=== PATIENT | female | born 1975 | race Caucasian/White ===

== ENCOUNTER 2018-02-18 16:49 | Inpatient (IN) ==
[2018-02-18] MEDS ORDERED: METOCLOPRAMIDE 10 MG/2 ML VIAL IV ONE ×2 (17:08→18:49)
--- NOTE | 2018-02-18 17:59 | XRay Report ---
CLINICAL INFORMATION: nausea and vomiting COMPARISON: None. FINDINGS: Stool gas pattern is normal. No free air, soft tissue mass or organomegaly. IUD overlies the true pelvis. There is moderate calcification in the abdominal aorta and iliac arteries IMPRESSION: No acute disease. Interpreted and Authenticated by: Zion Valles 02/18/18
[2018-02-18 18:20] LABS: Basophils # (Auto) 0.2 K/mcL (0.0-0.3); Basophils % (Auto) 1.4 % (0.0-2.0); Eosinophils # (Auto) 0 K/mcL (0.0-0.7); Eosinophils % (Auto) 0.1 % (0.0-7.0); Granulocytes % (Auto) 75.8 % (38.0-78.0); Lymphocytes % (Auto) 17.1 % (15.5-49.0); Mean Cell Volume 85.8 fL (80.0-100.0); Mean Corpuscular HGB Conc 31.4 g/dL (31.0-36.0); Mean Corpuscular Hemoglobin 26.9 pg (26.0-34.0); Monocytes # (Auto) 0.6 K/mcL (0.1-0.9); Monocytes % (Auto) 5.6 % (1.0-12.0); Platelet Count 253 K/mcL (140-440); RBC 4.72 M/mcL (4.00-5.20); Red Cell Distribution Width 17.8 % (11.5-14.5)
[2018-02-18 18:48] LABS: ALT/SGPT 12 U/l (0-40); Albumin 2.9 gm/dL (3.2-5.2); Albumin/Globulin Ratio 0.8 (1.0-2.3); Alkaline Phosphatase 234 U/L (39-117); Blood Urea Nitrogen 6 mg/dl (6-20); Lipase < 7 U/L (7-60)
--- NOTE | 2018-02-18 19:09 | Emergency Department Note ---
Nausea/Vomiting/Diarrhea HPI - General Chief complaint: Nausea/Vomiting/Diarrhea Stated complaint: n/v Time Seen by Provider: 02/18/18 17:00 Source: patient Mode of arrival: wheelchair Limitations: no limitations - History of Present Illness HPI Narrative: 42-year-old female dialysis patient brought over by Dr. Anton for nausea and vomiting in the dialysis unit. She received a dose of Zofran but this did not help much. Patient notes that she has had nausea vomiting for the last 4-5 days and is not able to keep much down. Decreased appetite she denies any fever but she is having some flulike symptoms with malaise and generally feeling bad. Denies any diarrhea. However because she has not eaten much her last bowel movement was about 4 days ago - Related Data Home Medications Medication Instructions Recorded Confirmed lancets MISCELLANE 04/23/16 09/07/17 cinacalcet 30 mg tablet 30 mg PO .QOD tab 07/09/17 12/24/17 aspirin 81 mg tablet,delayed 162 mg PO QDAY tab 09/07/17 12/24/17 release insulin glargine (U-100) 100 15 unit SUB-Q QHS ml 09/07/17 12/24/17 unit/mL (3 mL) subcutaneous pen Previous Rx's Medication Instructions Recorded insulin syringe-needle U-100 1 mL See Dose Instructions .ROUTE 05/28/16 31 gauge x 16" .MEDSUPPLY #100 each loperamide 2 mg capsule 2 mg PO QID PRN #30 cap 05/28/16 metoprolol tartrate 100 mg tablet 100 mg PO BID #60 tab 08/27/16 blood sugar diagnostic strips See Dose Instructions .ROUTE 12/11/16 .MEDSUPPLY #100 each Relion Pen [place] #1 ea 03/03/17 insulin aspart U-100 100 unit/mL 4 unit SUB-Q ONCE #10 ml 04/08/17 subcutaneous solution amlodipine 10 mg tablet 10 mg PO QDAY #30 tab 07/20/17 atorvastatin 40 mg tablet 40 mg PO QDAY #30 tab 07/20/17 sertraline 50 mg tablet 50 mg PO QDAY #30 tab 07/20/17 venlafaxine ER 225 mg 225 mg PO QDAY #90 tab 07/20/17 tablet,extended release 24 hr sevelamer carbonate 800 mg tablet 1,600 mg PO TID #180 tab 08/05/17 pen needle, diabetic 31 gauge x See Dose Instructions .ROUTE 09/07/17 1/" .MEDSUPPLY #30 each losartan 50 mg tablet 50 mg PO QDAY #30 tab 11/30/17 cetirizine 5 mg tablet 5 mg PO QDAY #30 tab 01/21/18 megestrol 400 mg/10 mL (10 mL) 200 mg PO BID #1000 ml 02/02/18 oral suspension potassium chloride ER 10 mEq 10 meq PO BID #60 cap 02/10/18 capsule,extended release Allergies Allergy/AdvReac Type Severity Reaction Status Date / Time No Known Drug Allergies Allergy Verified 09/07/17 08:44 Review of Systems All systems ED: reviewed and negative except as stated. Past Medical History - Past Medical History Attestation: Yes: The following information was validated with the patient. [facility] Narrative: Medical History (Last Updated 12/25/17 @ 13:48 by Monik Malhotra) Hypotension (Chronic) Metabolic bone disease (Chronic) Hyperlipidemia (Chronic) End stage renal disease on dialysis (Chronic) CAD (coronary artery disease) (Chronic) Bowel incontinence (Chronic) Anemia of chronic renal failure (Chronic) Adult health maintenance (Chronic) Amputee, above knee (Chronic) Kidney failure (Chronic ~2006) Hypertension, essential (Chronic ~1999) Congenital heart disease (Chronic) Heart problem (Chronic ~2002) DMII (diabetes mellitus, type 2) (Chronic ~2003) Depression (Chronic ~2005) Anxiety (Chronic ~2003) Past Surgical History (Last Updated 09/17/17 @ 07:35 by Manasa Katz) H/O colonoscopy (Chronic) History of surgery (Chronic 08/16/15) History of surgery (Chronic 09/03/15) History of surgery (Chronic 08/20/17) Hx of AKA (above knee amputation) (Chronic 09/07/15) Hx of coronary artery bypass graft (Chronic 08/20/17) Status post debridement (Chronic 09/16/17) Family History (Last Reviewed 09/07/17 @ 08:58 by Jerrica Joseph DO) Family/Other Cervical cancer Grandfather Prostate cancer Diabetes Hypertension, essential Grandmother Dementia Father Diabetes Hypertension, essential Heart attack Family/Other Diabetes Hypertension, essential Medical history: Reports: coronary artery disease, DM (Type II now on dialysis.) , hypertension, renal disease (End-stage, on dialysis.), other (Pulmonary embolism.). Denies: cancer, CVA, GERD, hyperlipidemia, myocardial infarction, TIA Psychiatric history: Reports: depression (Takes Effexor.). Denies: anxiety Surgical history ED: Reports: coronary bypass (CABG), other (AKA (right).) - Social History smoking status: Never smoker Alcohol use: Reports: None Drug use: Reports: none. Denies: marijuana Physical Exam No acute distress resting. Normocephalic atraumatic. Conjunctive are clear sclerae white and. Oropharynx dry buccal mucosa. Neck is supple without lymphadenopathy or thyromegaly. Heart is regular rate and rhythm no murmur appreciated. Lungs are clear to auscultation bilaterally without wheezes rales rhonchi or respiratory distress. Abdomen soft nontender nondistended except epigastrium is mildly tender. She does have a dialysis catheter in the upper right chest. Midline scar from previous CABG. Right below the knee amputation is noted. +2 radial pulse. Alert oriented able to answer questions appropriately. Reasonable historian Limitations: no limitations Course Vital Signs Temperature 97.1 F 02/18/18 16:49 Pulse Rate 103 H 02/18/18 16:49 Respiratory Rate 14 02/18/18 16:49 Blood Pressure 84/60 02/18/18 16:49 Pulse Oximetry (%) 100 02/18/18 16:49 Temperature 97.1 F 02/18/18 16:49 Pulse Rate 118 H 02/18/18 18:28 Respiratory Rate 18 02/18/18 18:28 Blood Pressure 103/68 02/18/18 18:28 Pulse Oximetry (%) 100 02/18/18 18:28 Nausea/Vomiting/Diarrhea - Lab Data Lab results reviewed: Yes I reviewed the patient's lab results. Result diagrams: 02/18/18 17:57 02/18/18 17:57 Lab Results 02/18/18 02/18/18 Range/Units 17:57 17:57 WBC 11.4 H (4.5-11.0) K/mcL RBC 4.72 (4.00-5.20) M/mcL Hgb 12.7 (12.0-15.0) g/dL Hct 40.5 (36.0-48.0) % MCV 85.8 (80.0-100.0) fL MCH 26.9 (26.0-34.0) pg MCHC 31.4 (31.0-36.0) g/dL RDW 17.8 H (11.5-14.5) % Plt Count 253 (140-440) K/mcL MPV 10.6 H (7.4-10.4) fL Gran % 75.8 (38.0-78.0) % Lymph % (Auto) 17.1 (15.5-49.0) % [place] % (Auto) 5.6 (1.0-12.0) % Eos % (Auto) 0.1 (0.0-7.0) % Baso % (Auto) 1.4 (0.0-2.0) % Gran # 8.7 H (1.8-8.0) K/mcL Lymph # (Auto) 2.0 (1.5-4.8) K/mcL [place] # (Auto) 0.6 (0.1-0.9) K/mcL Eos # (Auto) 0 (0.0-0.7) K/mcL Baso # (Auto) 0.2 (0.0-0.3) K/mcL Sodium 132 L (133-145) mmol/L Potassium 4.3 (3.3-5.1) mmol/L Chloride 89 L (96-108) mmol/L Carbon Dioxide 22 (22-30) mmol/L Anion Gap 21.0 H (8-16) BUN 6 (6-20) mg/dl Creatinine 1.1 (0.6-1.1) mg/dl GFR Calculation 62 Glucose 129 H (70-105) mg/dL Calcium 8.4 L (8.6-10.4) mg/dl Total Bilirubin 0.5 (0.0-1.0) mg/dL AST 35 (0-37) U/l ALT 12 (0-40) U/l Alkaline Phosphatase 234 H (39-117) U/L Total Protein 6.7 (5.9-8.4) gm/dL Albumin 2.9 L (3.2-5.2) gm/dL Globulin 3.8 H (2.2-3.7) gm/dL Albumin/Globulin Ratio 0.8 L (1.0-2.3) Lipase < 7 L (7-60) U/L - Radiology Data Radiology results reviewed: Yes I reviewed the patient's radiology results. X-ray 2 views abdomen considered normal by radiology Disposition Pt seen by PROOF OPERATOR/PA only: No Clinical Impression: End stage renal disease on dialysis Intractable nausea and vomiting Qualifiers: Vomiting type: unspecified Qualified Code(s): R11.2 - Nausea with vomiting, unspecified Summary: Differential diagnosis includes gastritis versus gastroparesis versus pancreatic insufficiency. She is given 2 doses of Reglan in addition to the Zofran previously given in dialysis without significant relief of her nausea. Gastroparesis is a possibility especially given her history of diabetes. Lipase is undetectable when it should be expected elevated after 4 days of nausea and vomiting-pancreatic insufficiency remains a possibility. I did not give her IV fluid because she just came from dialysis and she does not make urine anymore; she was allowed to oral trial of fluids I discussed the case with Dr. Dias, hospitalist. He agreed to accept patient for further evaluation and care here in the hospital Disposition: Xfer As Inpt ([facility]) Condition: Fair Referrals: Jerrica Joseph DO [Primary Care Provider] - Deann Anton MD [Physician] -
[2018-02-18] MEDS ORDERED: 0.9 % SODIUM CHLORIDE 250 ML IV ONE (20:32)
--- NOTE | 2018-02-18 20:46 | Internal Med History&Physical ---
Medical - H&P: HPI Patient information: Note initiated : 02/18/18 at 8:38 pm Service Date, if different from initiated Date: [] Patient: Louisa Cohn a 42 y/o F admitted on for n/v, constipation. Chief Complaint: [] History of present illness: Ms. Cohn is a 42 year old F with multiple medical issues, type II diabetic for last 20 years, right BKA, end-stage renal disease on hemodialysis, recent cardiac bypass surgery, pulmonary embolism in August 2017. Presently on Coumadin. Presents to the emergency room from her dialysis unit. The patient notes she has not been feeling well for the last 6 weeks, the patient has had decreased appetite and has not been eating very well since then. She is also had some nausea and vomiting. Over the last 3 weeks she has noticed that her stool color has changed and it is more darker than before. She has not had much bowel movement for the last 1 week as she has not eaten much. For the last week and a half she has been having intractable nausea and vomiting, she has not been able to eat much at all. She notes that the vomit happens with or without any association with meals, but if she eats something she will definitely threw up. It is biliary in nature, denies any blood in there. She has had intermittent projectile vomiting. The patient denies any abdominal pain, admits to having flulike symptoms just cold all the time. She denies any other acute symptoms. She denies any headache, changes in vision, she has intermittent difficulty in swallowing, she denies any cough shortness of breath or active chest pain. She denies any abdominal pain just some discomfort, denies any bowel bladder complaints, she has had diarrhea in the past, she was being followed by GI and was supposed to have a colonoscopy done. She notes that she never had a colonoscopy done because of her cardiac issue. Today on dialysis at the end of the dialysis. She has had multiple episodes of vomiting which did not respond to Zofran, she is also had significant weight loss over the last 6 weeks and therefore was sent to the emergency room for further evaluation. In the emergency room the patient received 2 doses of IV Reglan with some response. Given her weight loss acuity of symptom the patient is being admitted to the hospital for further evaluation. In the emergency room patient has been afebrile temperature 97.1, heart rate 94 , she is also had few runs of tachycardia. Blood pressure stable 107/68 respirations 18 saturations are 99% on room air. Chest x-ray done is negative for acute infiltrates to my interpretation. Abdominal x-ray is reported as negative. EKG shows sinus tachycardia ST-T wave changes inversions in anterior and lateral leads. Patient had lateral lead changes in the previous EKG anteriorly changes in V2 and V3 are new. Patient is asymptomatic has had cardiac bypass surgery. The patient's labs show mild leukocytosis at 11.4, hemoglobin 12.7, platelets 253. Sodium 132 potassium 4.3 bicarbonate 22. Creatinine 1.1 glucose 129. Alkaline phosphatase 234 and lipase is less than 7. INR is 1.8. All systems: reviewed and no additional remarkable complaints except as stated ( As per HPI rest negative) Medical - H&P: H Medical history: Medical History (Last Updated 12/25/17 @ 13:48 by Monik Malhotra) Hypotension (Chronic) Metabolic bone disease (Chronic) Hyperlipidemia (Chronic) End stage renal disease on dialysis (Chronic) CAD (coronary artery disease) (Chronic) Bowel incontinence (Chronic) Anemia of chronic renal failure (Chronic) Adult health maintenance (Chronic) Amputee, above knee (Chronic) Kidney failure (Chronic ~2006) Hypertension, essential (Chronic ~1999) Congenital heart disease (Chronic) Heart problem (Chronic ~2002) DMII (diabetes mellitus, type 2) (Chronic ~2003) Depression (Chronic ~2005) Anxiety (Chronic ~2003) Surgical history: Past Surgical History (Last Updated 09/17/17 @ 07:35 by Manasa Katz) H/O colonoscopy (Chronic) History of surgery (Chronic 08/16/15) History of surgery (Chronic 09/03/15) History of surgery (Chronic 08/20/17) Hx of AKA (above knee amputation) (Chronic 09/07/15) Hx of coronary artery bypass graft (Chronic 08/20/17) Status post debridement (Chronic 09/16/17) Pertinent family history: Family History (Last Reviewed 09/07/17 @ 08:58 by Jerrica Joseph DO) Family/Other Cervical cancer Grandfather Prostate cancer Diabetes Hypertension, essential Grandmother Dementia Father Diabetes Hypertension, essential Heart attack Family/Other Diabetes Hypertension, essential Medical - H&P: Meds Home Medications Medication Instructions Recorded Confirmed Type lancets MISCELLANE 04/23/16 09/07/17 History insulin syringe-needle U-100 1 mL See Dose Instructions .ROUTE 05/28/16 Rx 31 gauge x 09/30" .MEDSUPPLY #100 each loperamide 2 mg capsule 2 mg PO QID PRN #30 cap 05/28/16 02/18/18 Rx metoprolol tartrate 100 mg tablet 100 mg PO BID #60 tab 08/27/16 02/18/18 Rx blood sugar diagnostic strips See Dose Instructions .ROUTE 12/11/16 09/07/17 Rx .MEDSUPPLY #100 each Relion Pen [place] #1 ea 03/03/17 09/07/17 Rx insulin aspart U-100 100 unit/mL 4 unit SUB-Q ONCE #10 ml 04/08/17 02/18/18 Rx subcutaneous solution cinacalcet 30 mg tablet 30 mg PO .QOD tab 07/09/17 02/18/18 History amlodipine 10 mg tablet 10 mg PO QDAY #30 tab 07/20/17 02/18/18 Rx atorvastatin 40 mg tablet 40 mg PO QDAY #30 tab 07/20/17 02/18/18 Rx sertraline 50 mg tablet 50 mg PO QDAY #30 tab 07/20/17 02/18/18 Rx venlafaxine ER 225 mg 225 mg PO QDAY #90 tab 07/20/17 02/18/18 Rx tablet,extended release 24 hr sevelamer carbonate 800 mg tablet 1,600 mg PO TID #180 tab 08/05/17 02/18/18 Rx insulin glargine (U-100) 100 15 unit SUB-Q QHS ml 09/07/17 02/18/18 History unit/mL (3 mL) subcutaneous pen pen needle, diabetic 31 gauge x See Dose Instructions .ROUTE 09/07/17 09/07/17 Rx 1/4" .MEDSUPPLY #30 each losartan 50 mg tablet 50 mg PO QDAY #30 tab 11/30/17 02/18/18 Rx cetirizine 5 mg tablet 5 mg PO QDAY #30 tab 01/21/18 02/18/18 Rx megestrol 400 mg/10 mL (10 mL) 200 mg PO BID #1000 ml 02/02/18 02/18/18 Rx oral suspension potassium chloride ER 10 mEq 10 meq PO BID #60 cap 02/10/18 Rx capsule,extended release Allergies Allergy/AdvReac Type Severity Reaction Status Date / Time No Known Drug Allergies Allergy Verified 09/07/17 08:44 Medical - H&P: Exam - Constitutional Vitals: Temp Pulse Resp BP Pulse Ox 97.1 F 110 H 18 111/85 100 02/18/18 16:49 02/18/18 20:08 02/18/18 20:08 02/18/18 20:08 02/18/18 20:08 Exam: GENERAL: The patient is a well-developed, well-nourished in no apparent distress. Is alert and oriented x3. VITAL SIGNS: Reviewed and as noted elsewhere. HEENT: Head is normocephalic and atraumatic. Extraocular muscles are intact. Pupils are equal, round, and reactive to light. Nares appeared normal. Mouth appears any without lesions. Mucous membranes are dry. NECK: Normal to inspection, Supple, No lymphadenopathy or thyromegaly. LUNGS: Air entry equal on both sides, no wheezing, crackles or rhonchi noted. No accessory muscles of respiration HEART: tachycardic rate and rhythm normal, S1 and S2 heard, no Gallop, S3 or Rub Noted,systolic murmur mitral region.. ABDOMEN: Soft, nontender, and nondistended, large pannus. Positive bowel sounds. No hepatosplenomegaly was noted. EXTREMITIES: No cyanosis, clubbing, rash, lesions or edema. Rt bka NEUROLOGIC: Cranial nerves II through XII are grossly intact. Motor and Sensory System Grossly Intact PSYCHIATRIC: Normal affect, Normal Mood. Appropriate Behavior. SKIN: No ulceration or wounds noted, No jaundice, No rash noted. Medical - H&P: Reslt - Labs CBC & Chem 7: 02/18/18 17:57 02/18/18 17:57 Labs: Short CBC 02/18/18 Range/Units 17:57 WBC 11.4 H (4.5-11.0) K/mcL Hgb 12.7 (12.0-15.0) g/dL Hct 40.5 (36.0-48.0) % Plt Count 253 (140-440) K/mcL BMP 02/18/18 17:57 Sodium 132 L Potassium 4.3 Chloride 89 L Carbon Dioxide 22 BUN 6 Creatinine 1.1 Glucose 129 H Calcium 8.4 L Liver Function 02/18/18 Range/Units 17:57 Total Bilirubin 0.5 (0.0-1.0) mg/dL AST 35 (0-37) U/l ALT 12 (0-40) U/l Alkaline Phosphatase 234 H (39-117) U/L Albumin 2.9 L (3.2-5.2) gm/dL Medical - H&P: A/P - Narrative A/P Narrative: A/P Nausea/ vomiting Dehydration Weight loss Diabetes Mellitus Hypertension Hyperlipidemia Coronary Artery Disease s/p CABG Pulmonary Embolus, within last 6 months END stage renal disease on dialysis Chronic Diarrhea Depression Plan Intermittent tachycardia, noted, sinus tachycardia, IV fluids for now, IV reglan, zofran, phenergan for symptomatic managmeent Plan for CT abdomen and pelvis and possible EGD in AM, its possible that the patient has developed gastroparesis, but will complete workup, Nephrology to consult for dialysis Resume statin, beta blockers, hold arb/ amlodipine for now. ssi insulin for glucose control tachycardia likely from dehydration, autonomic dysregulation possible check troponin, trend value, first value could be elevated (on HD) DVT enoxaprin, coumadin Full code renal, carb consistent diet. Social History - Social History marital status: - Tobacco smoking status: Never smoker - Alcohol alcohol intake frequency: does not drink - Substance use substance use type: does not use
[2018-02-18] MEDS ORDERED: IOPAMIDOL 100 ML BOTTLE IV ONE (20:50)
[2018-02-18] MEDS ORDERED: NALOXONE HCL 0.4 MG/ML VIAL IV PRN (21:02)
[2018-02-18] MEDS ORDERED: HYDROmorphone 2 MG/ML VIAL IV PRN (21:02)
[2018-02-18] MEDS ORDERED: PROMETHAZINE 25 MG/ML VIAL IV PRN (21:02)
[2018-02-18] MEDS ORDERED: LACTATED RINGERS 1,000 ML IV SCH (21:02)
[2018-02-18] MEDS ORDERED: DEXTROSE 50% 50 ML VIAL IV PRN (21:02)
[2018-02-18] MEDS ORDERED: ONDANSETRON 4 MG/2 ML VIAL IV PRN (21:02)
[2018-02-18] MEDS ORDERED: ALBUTEROL SULFATE 2.5 MG/3 ML NEBULIZER NEB PRN (21:02)
[2018-02-18] MEDS ORDERED: ACETAMINOPHEN 325 MG TABLET PO PRN (21:02)
[2018-02-18] MEDS ORDERED: oxyCODONE HCL 5 MG TABLET PO PRN (21:02)
[2018-02-18] MEDS ORDERED: DEXTROSE 31 GM ORAL.SUSP PO PRN (21:02)
[2018-02-18] MEDS ORDERED: ENOXAPARIN 40 MG/0.4 ML SYRINGE SQ ONE (21:02)
[2018-02-18] MEDS: METOPROLOL TARTRATE 50 MG TABLET PO SCH (22:03)
[2018-02-18] MEDS: ATORVASTATIN 20 MG TABLET PO SCH (22:03)
[2018-02-18] MEDS: INSULIN LISPRO 1 UNIT/0.01 ML UNIT SQ SCH (22:07)
[2018-02-18] MEDS: 0.9 % SODIUM CHLORIDE 10 ML SYRINGE IV SCH (22:07)
--- NOTE | 2018-02-19 04:57 | XRay Report ---
CLINICAL INFORMATION: nausea/vomiting COMPARISON: 12/25/2017 FINDINGS: Right IJ double-lumen catheter tip overlies the right atrium near the tricuspid valve plane - no change. Sternotomy changes noted. Mediastinum and pulmonary vessels are unremarkable. The lungs are clear. No effusions. IMPRESSION: No acute disease. No change from 12/25/2017 Interpreted and Authenticated by: Zion Valles 02/19/18
[2018-02-19] MEDS: 0.9 % SODIUM CHLORIDE 10 ML SYRINGE IV SCH ×3 (06:31→20:30)
[2018-02-19 07:04] LABS: Basophils # (Auto) 0.1 K/mcL (0.0-0.3); Eosinophils # (Auto) 0 K/mcL (0.0-0.7); Eosinophils % (Auto) 0.4 % (0.0-7.0); Granulocytes % (Auto) 50.9 % (38.0-78.0); Lymphocytes # (Auto) 2.8 K/mcL (1.5-4.8); Lymphocytes % (Auto) 38.1 % (15.5-49.0); Mean Cell Volume 85.8 fL (80.0-100.0); Mean Corpuscular HGB Conc 31.5 g/dL (31.0-36.0); Mean Corpuscular Hemoglobin 27.1 pg (26.0-34.0); Monocytes # (Auto) 0.7 K/mcL (0.1-0.9); Monocytes % (Auto) 9.6 % (1.0-12.0); Platelet Count 206 K/mcL (140-440); RBC 4.02 M/mcL (4.00-5.20); Red Cell Distribution Width 17.3 % (11.5-14.5)
[2018-02-19 07:49] LABS: ALT/SGPT 8 U/l (0-40); Albumin 2.5 gm/dL (3.2-5.2); Albumin/Globulin Ratio 0.8 (1.0-2.3); Alkaline Phosphatase 187 U/L (39-117); Bilirubin,Direct < 0.2 mg/dL (0.0-0.3); Blood Urea Nitrogen 10 mg/dl (6-20); Gamma Glutamyl Transpeptidase 39 U/L (5-36); Uric Acid 1.5 mg/dL (2.5-8.0)
[2018-02-19] MEDS ORDERED: DEXTROSE 50% 50 ML VIAL IV ONE (07:50)
[2018-02-19] MEDS: INSULIN LISPRO 1 UNIT/0.01 ML UNIT SQ SCH ×4 (07:59→20:00)
[2018-02-19] MEDS: METOCLOPRAMIDE 10 MG/2 ML VIAL IV SCH ×4 (08:02→20:29)
[2018-02-19] MEDS: METOPROLOL TARTRATE 50 MG TABLET PO SCH ×2 (09:49→20:02)
[2018-02-19] MEDS: SERTRALINE 50 MG TABLET PO SCH (09:50)
[2018-02-19] MEDS: VENLAFAXINE 75 MG CAP.XL.24H PO SCH (09:50)
[2018-02-19] MEDS: SEVELAMER 800 MG TABLET PO SCH ×3 (09:54→18:48)
[2018-02-19] MEDS: PANTOPRAZOLE 40 MG VIAL IV SCH ×2 (11:04→18:49)
[2018-02-19] MEDS ORDERED: WARFARIN 2.5 MG TABLET PO ONE (14:00)
--- NOTE | 2018-02-19 15:06 | Nephrology Consult Note ---
History of Present Illness - Reason for Consult Patient information: Note initiated : 02/19/18 at 2:58 pm Service Date, if different from initiated Date: [] Patient: Louisa Cohn a 42 y/o F admitted on 02/18/18 for N/V, Constipation. Chief Complaint: [] Consult date: 02/19/18 end stage renal disease Requesting physician: Dayna Dias - Chief Complaint nausea, vomiting - History of Present Illness Patient is a 42 y/o pleasant white female with ESRD from diabetic kidney disease who is admitted for management of refractory nausea, vomiting Patient is noted to have progressive weight loss with poor appetite, very poor po intake and recurrent nausea, vomiting and diarrhea she was treated with PPI, megace (appetite stimulant) and zofran but this did not improve her symptoms given worsening of her symptoms she was recommended hospitalisation for GI work up she denies SOB, CP no edema does feel very weak, bedbound, unable to do much PT Review of Systems All systems PM: reviewed and no additional remarkable complaints except as stated (as in HPI) Past History Past medical history: ESRD from diabetic kidney disease DM type 2 with multiple complications HTN PE CAD, severe s/p CABG dyslipidemia renal artery stenosis s/p stenting depression PVD, s/p BKA obesity Past surgical history: as above s/p TCC Past family history: not pertinent Past social history: lives with her in [place] no addictions Medications and Allergies Home Medications Medication Instructions Recorded Confirmed Type loperamide 2 mg capsule 2 mg PO QID PRN #30 cap 05/28/16 02/18/18 Rx metoprolol tartrate 100 mg tablet 100 mg PO BID #60 tab 08/27/16 02/18/18 Rx insulin aspart U-100 100 unit/mL 4 unit SUB-Q ONCE #10 ml 04/08/17 02/18/18 Rx subcutaneous solution cinacalcet 30 mg tablet 30 mg PO HS tab 07/09/17 02/18/18 History amlodipine 10 mg tablet 10 mg PO QDAY #30 tab 07/20/17 02/18/18 Rx atorvastatin 40 mg tablet 40 mg PO QDAY #30 tab 07/20/17 02/18/18 Rx sertraline 50 mg tablet 50 mg PO QDAY #30 tab 07/20/17 02/18/18 Rx venlafaxine ER 225 mg 225 mg PO QDAY #90 tab 07/20/17 02/18/18 Rx tablet,extended release 24 hr sevelamer carbonate 800 mg tablet 1,600 mg PO TID #180 tab 08/05/17 02/18/18 Rx insulin glargine (U-100) 100 20 unit SUB-Q QHS ml 09/07/17 02/18/18 History unit/mL (3 mL) subcutaneous pen pen needle, diabetic 31 gauge x See Dose Instructions .ROUTE 09/07/17 09/07/17 Rx 05/21" .MEDSUPPLY #30 each losartan 50 mg tablet 50 mg PO QDAY #30 tab 11/30/17 02/18/18 Rx cetirizine 5 mg tablet 5 mg PO QDAY #30 tab 01/21/18 02/18/18 Rx megestrol 400 mg/10 mL (10 mL) 200 mg PO BID #1000 ml 02/02/18 02/18/18 Rx oral suspension potassium chloride ER 10 mEq 10 meq PO BID #60 cap 02/10/18 02/18/18 Rx capsule,extended release Blood-Glucose Meter [Blood Glucose 1 strip 5XD 02/18/18 02/18/18 History Monitoring] Allergies Allergy/AdvReac Type Severity Reaction Status Date / Time No Known Drug Allergies Allergy Verified 09/07/17 08:44 Exam - Vital Signs Vital signs: Temp Pulse Resp BP Pulse Ox 96.8 F L 71 14 106/72 91 02/19/18 06:43 02/19/18 08:00 02/19/18 06:43 02/19/18 06:43 02/19/18 06:43 - General Appearance General appearance: appears started age, frail EENT: mucous membranes moist Neck: no JVD Respiratory: clear Cardiology: no rub, no edema, regular rate, regular rhythm Gastrointestinal: no tenderness, no guarding Integumentary: warm and dry Neurologic: alert and oriented x3 Musculoskeletal: no erythema, no cyanosis Psychiatric: mood/affect appropriate Results - Lab Results 02/19/18 04:05 02/19/18 04:05 Most recent lab results Calcium 8.9 mg/dl (8.6-10.4) 02/19/18 04:05 Phosphorus 1.9 mg/dL (2.7-4.5) L 02/19/18 04:05 Magnesium 1.7 mg/dL (1.6-2.5) 02/19/18 04:05 Assessment and Plan (1) Intractable nausea and vomiting patient with poor appetite, intractable nausea, vomiting for the last few days and also intermittent diarrhea tried multiple meds putpt, on IDPN as well she is hospitalised at present for evaluation and management and will CT abdomen and GI eval, appreciate hospitalist help with this ESRD on HD: will do 2.5hr dialysis session today after CT scan to dialyse off the contrast as she has some residual renal function HD tomorrow with IDPN as she dialyses TTS We will need to renew home PT/OT,s he is refusing rehab placement Status: Acute Qualifiers: Vomiting type: unspecified Qualified Code(s): R11.2 - Nausea with vomiting , unspecified (2) End stage renal disease on dialysis Status: Chronic
--- NOTE | 2018-02-19 17:01 | General Surgery Consult Note ---
History of Present Illness Patient information: Note initiated : 02/19/18 at 4:57 pm Service Date, if different from initiated Date: [] Patient: Louisa Cohn 42 y/o F admitted on 02/18/18 for N/V, Constipation. Chief Complaint: [] Reason for consult: other (recurrent nausea and vomiting) History of present illness: 42-year-old female is admitted for evaluation of intractable nausea and vomiting. The patient has multiple medical problems including severe uncontrolled diabetes mellitus, end-stage renal disease on hemodialysis, coronary artery disease, status post four-vessel bypass, severe peripheral vascular disease. She gives a history of 10-12 days of recurrent nausea and vomiting that has gotten much worse over the past 6 days. Her vomiting is associated with all meals and is mostly bilious. She still has her gallbladder , but denies right-sided abdominal pain or any other type of abdominal pain. She denies bloating. She has had chronic diarrhea for over 10 years. She has history of greater than 50 pound weight loss over the past year. She states that whenever she eats. She has prompt emesis of the undigested food. Review of Systems - Constitutional fatigue, headache(s), lethargy, malaise, weakness, weight loss - EENT Nose, mouth and throat: dizziness, headache(s), no abnormal hearing - Cardiovascular no chest pain at rest, no diaphoresis, no palpatations, no syncope - Respiratory no cough, no dyspnea on exertion, no wheezing, no chest congestion - Gastrointestinal abdominal pain, diarrhea, early satiety, nausea, vomiting, no bloating - Integumentary no changing lesions, no non-healing lesions - Neurological no abnormal speech, no confusion, no dizziness, no numbness, no paresthesias, no syncope, no vertigo - Psychiatric anxiety, depression, hopelessness - Hematologic/Lymphatic no easy bleeding, no easy bruising, no lymphadenopathy - Allergic/Immunologic no tongue swelling, no throat swelling, no uticaria, no wheezing, no lip swelling Past History Past medical history: Coronary artery disease, status post four-vessel coronary artery bypass graft. Peripheral vascular disease status post angioplasty 3, left lower extremity, status post right [id number] amputation. Uncontrolled diabetes. Hypertension. End-stage renal disease on hemodialysis Past surgical history: Coronary artery bypass graft 4 Angioplasty 3, left lower extremity. Right [id number] amputation Past family history: Cervical cancer. Prostate cancer. Diabetes mellitus Hypertension Dementia. Hypertension. Coronary artery disease Past social history: Never smoker. Denies alcohol use. Denies drug use Medications and Allergies Home Medications Medication Instructions Recorded Confirmed Type loperamide 2 mg capsule 2 mg PO QID PRN #30 cap 05/28/16 02/18/18 Rx metoprolol tartrate 100 mg tablet 100 mg PO BID #60 tab 08/27/16 02/18/18 Rx insulin aspart U-100 100 unit/mL 4 unit SUB-Q ONCE #10 ml 04/08/17 02/18/18 Rx subcutaneous solution cinacalcet 30 mg tablet 30 mg PO HS tab 07/09/17 02/18/18 History amlodipine 10 mg tablet 10 mg PO QDAY #30 tab 07/20/17 02/18/18 Rx atorvastatin 40 mg tablet 40 mg PO QDAY #30 tab 07/20/17 02/18/18 Rx sertraline 50 mg tablet 50 mg PO QDAY #30 tab 07/20/17 02/18/18 Rx venlafaxine ER 225 mg 225 mg PO QDAY #90 tab 07/20/17 02/18/18 Rx tablet,extended release 24 hr sevelamer carbonate 800 mg tablet 1,600 mg PO TID #180 tab 08/05/17 02/18/18 Rx insulin glargine (U-100) 100 20 unit SUB-Q QHS ml 09/07/17 02/18/18 History unit/mL (3 mL) subcutaneous pen pen needle, diabetic 31 gauge x See Dose Instructions .ROUTE 09/07/17 09/07/17 Rx 1/4" .MEDSUPPLY #30 each losartan 50 mg tablet 50 mg PO QDAY #30 tab 11/30/17 02/18/18 Rx cetirizine 5 mg tablet 5 mg PO QDAY #30 tab 01/21/18 02/18/18 Rx megestrol 400 mg/10 mL (10 mL) 200 mg PO BID #1000 ml 02/02/18 02/18/18 Rx oral suspension potassium chloride ER 10 mEq 10 meq PO BID #60 cap 02/10/18 02/18/18 Rx capsule,extended release Blood-Glucose Meter [Blood Glucose 1 strip 5XD 02/18/18 02/18/18 History Monitoring] Allergies Allergy/AdvReac Type Severity Reaction Status Date / Time No Known Drug Allergies Allergy Verified 09/07/17 08:44 Exam Temp Pulse Resp BP Pulse Ox 97.5 F 65 16 110/81 92 02/19/18 15:38 02/19/18 15:38 02/19/18 15:38 02/19/18 15:38 02/19/18 15:38 - General physical appearance well developed, well nourished, no distress, chronically ill - Eyes PERRL, normal ocular movement - ENT normal pinna, normal nares, normal mucosa, no hearing loss, no congestion - Head Head exam IM: Present: atraumatic, normal inspection, normocephalic - Neck no masses, no bruits, trachea midline, no lymphadectomy, no venous distension - Cardiovascular Cardiovascular exam IM: Present: normal rate and rhythm, RRR, +S1, +S2. Absent : irregular rhythm, JVD, tachycardia - Respiratory normal expansion, normal respiratory effort, clear to auscultation - Abdomen Abdomen: Present: soft, non tender, bowel sounds. Absent: tender Hernia: Present: none - Genitourinary Present: normal external genitalia - Integumentary Present: no rash, no growths, no abnormal pigmentation - Neurologic Present: normal coordination, normal sensation - Musculoskeletal Present: normal gait, normal posture, other (status post right [id number] amputation with well healed stump) - Psychiatric Present: oriented to time, oriented to person, oriented to place, speech is normal, memory intact Results - Labs 02/19/18 04:05 02/19/18 04:05 Abnormal lab results 02/18/18 02/18/18 02/18/18 Range/Units 17:15 17:15 17:57 WBC 11.4 H (4.5-11.0) K/mcL Hgb (12.0-15.0) g/dL Hct (36.0-48.0) % RDW 17.8 H (11.5-14.5) % MPV 10.6 H (7.4-10.4) fL Gran # 8.7 H (1.8-8.0) K/mcL PT 21.1 H (11.9-14.5) sec INR 1.8 H (0.9-1.1) Sodium (133-145) mmol/L Chloride (96-108) mmol/L Carbon Dioxide (22-30) mmol/L Anion Gap (8-16) Creatinine (0.6-1.1) mg/dl Glucose (70-105) mg/dL Uric Acid (2.5-8.0) mg/dL Calcium (8.6-10.4) mg/dl Phosphorus (2.7-4.5) mg/dL GGT (5-36) U/L Alkaline Phosphatase (39-117) U/L Troponin T 0.06 H* (0-0.03) ng/ml Total Protein (5.9-8.4) gm/dL Albumin (3.2-5.2) gm/dL Globulin (2.2-3.7) gm/dL Albumin/Globulin Ratio (1.0-2.3) Lipase (7-60) U/L 02/18/18 02/19/18 02/19/18 Range/Units 17:57 04:05 04:05 WBC (4.5-11.0) K/mcL Hgb 10.9 L (12.0-15.0) g/dL Hct 34.5 L (36.0-48.0) % RDW 17.3 H (11.5-14.5) % MPV 11.5 H (7.4-10.4) fL Gran # (1.8-8.0) K/mcL PT 22.6 H (11.9-14.5) sec INR 2.0 H (0.9-1.1) Sodium 132 L (133-145) mmol/L Chloride 89 L (96-108) mmol/L Carbon Dioxide (22-30) mmol/L Anion Gap 21.0 H (8-16) Creatinine (0.6-1.1) mg/dl Glucose 129 H (70-105) mg/dL Uric Acid (2.5-8.0) mg/dL Calcium 8.4 L (8.6-10.4) mg/dl Phosphorus (2.7-4.5) mg/dL GGT (5-36) U/L Alkaline Phosphatase 234 H (39-117) U/L Troponin T (0-0.03) ng/ml Total Protein (5.9-8.4) gm/dL Albumin 2.9 L (3.2-5.2) gm/dL Globulin 3.8 H (2.2-3.7) gm/dL Albumin/Globulin Ratio 0.8 L (1.0-2.3) Lipase < 7 L (7-60) U/L 02/19/18 02/19/18 Range/Units 04:05 04:05 WBC (4.5-11.0) K/mcL Hgb (12.0-15.0) g/dL Hct (36.0-48.0) % RDW (11.5-14.5) % MPV (7.4-10.4) fL Gran # (1.8-8.0) K/mcL PT (11.9-14.5) sec INR (0.9-1.1) Sodium (133-145) mmol/L Chloride 94 L (96-108) mmol/L Carbon Dioxide 21 L (22-30) mmol/L Anion Gap 20.0 H (8-16) Creatinine 1.6 H (0.6-1.1) mg/dl Glucose (70-105) mg/dL Uric Acid 1.5 L (2.5-8.0) mg/dL Calcium (8.6-10.4) mg/dl Phosphorus 1.9 L (2.7-4.5) mg/dL GGT 39 H (5-36) U/L Alkaline Phosphatase 187 H (39-117) U/L Troponin T 0.07 H* (0-0.03) ng/ml Total Protein 5.6 L (5.9-8.4) gm/dL Albumin 2.5 L (3.2-5.2) gm/dL Globulin (2.2-3.7) gm/dL Albumin/Globulin Ratio 0.8 L (1.0-2.3) Lipase (7-60) U/L Diabetes panel 02/18/18 02/19/18 Range/Units 17:57 04:05 Sodium 132 L 135 (133-145) mmol/L Potassium 4.3 4.0 (3.3-5.1) mmol/L Chloride 89 L 94 L (96-108) mmol/L Carbon Dioxide 22 21 L (22-30) mmol/L BUN 6 10 (6-20) mg/dl Creatinine 1.1 1.6 H (0.6-1.1) mg/dl Glucose 129 H 75 (70-105) mg/dL Calcium 8.4 L 8.9 (8.6-10.4) mg/dl AST 35 21 (0-37) U/l ALT 12 8 (0-40) U/l Alkaline Phosphatase 234 H 187 H (39-117) U/L Total Protein 6.7 5.6 L (5.9-8.4) gm/dL Albumin 2.9 L 2.5 L (3.2-5.2) gm/dL Triglycerides 108 (<150) mg/dl Thyroid panel 02/18/18 Range/Units 17:57 TSH 1.29 (0.27-5.01) uIU/ml Calcium panel 02/18/18 02/19/18 Range/Units 17:57 04:05 Calcium 8.4 L 8.9 (8.6-10.4) mg/dl Phosphorus 1.9 L (2.7-4.5) mg/dL Albumin 2.9 L 2.5 L (3.2-5.2) gm/dL Pituitary panel 02/18/18 02/18/18 02/19/18 Range/Units 17:57 17:57 04:05 Sodium 132 L 135 (133-145) mmol/L Potassium 4.3 4.0 (3.3-5.1) mmol/L Chloride 89 L 94 L (96-108) mmol/L Carbon Dioxide 22 21 L (22-30) mmol/L BUN 6 10 (6-20) mg/dl Creatinine 1.1 1.6 H (0.6-1.1) mg/dl Glucose 129 H 75 (70-105) mg/dL Calcium 8.4 L 8.9 (8.6-10.4) mg/dl TSH 1.29 (0.27-5.01) uIU/ml Adrenal panel 02/18/18 02/19/18 Range/Units 17:57 04:05 Sodium 132 L 135 (133-145) mmol/L Potassium 4.3 4.0 (3.3-5.1) mmol/L Chloride 89 L 94 L (96-108) mmol/L Carbon Dioxide 22 21 L (22-30) mmol/L BUN 6 10 (6-20) mg/dl Creatinine 1.1 1.6 H (0.6-1.1) mg/dl Glucose 129 H 75 (70-105) mg/dL Calcium 8.4 L 8.9 (8.6-10.4) mg/dl Total Bilirubin 0.5 0.4 (0.0-1.0) mg/dL AST 35 21 (0-37) U/l ALT 12 8 (0-40) U/l Alkaline Phosphatase 234 H 187 H (39-117) U/L Total Protein 6.7 5.6 L (5.9-8.4) gm/dL Albumin 2.9 L 2.5 L (3.2-5.2) gm/dL All other labs normal. Assessment and Plan (1) Intractable nausea and vomiting Patient is counseled for upper endoscopy will be performed in the morning. History suggests incomplete gastric emptying, compatible with gastroparesis, but must rule out structural abnormality Status: Acute Qualifiers: Vomiting type: unspecified Qualified Code(s): R11.2 - Nausea with vomiting , unspecified (2) Peripheral vascular disease due to secondary diabetes Status: Chronic (3) End stage renal disease on dialysis Status: Chronic (4) Anemia of chronic renal failure Status: Chronic Qualifiers: Chronic kidney disease stage: stage 5 Qualified Code(s): N18.5 - Chronic kidney disease, stage 5; D63.1 - Anemia in chronic kidney disease (5) CAD (coronary artery disease) Status: Chronic Qualifiers: Coronary Disease-Associated Artery/Lesion type: bypass graft, other Associated angina: without angina Qualified Code(s): I25.810 - Atherosclerosis of coronary artery bypass graft(s) without angina pectoris (6) DMII (diabetes mellitus, type 2) Status: Chronic Qualifiers: Diabetes mellitus exterminator insulin use: with exterminator use Diabetes mellitus complication status: with circulatory complication (7) Depression Status: Chronic Qualifiers: Depression Type: major depressive disorder Major depression recurrence: recurrent Active/Remission status: currently active Major depression episode severity: moderate Qualified Code(s): F33.1 - Major depressive disorder, recurrent, moderate; F33.1 - Major depressive disorder, recurrent, moderate; F33.1 - Major depressive disorder, recurrent, moderate; F33.1 - Major depressive disorder, recurrent, moderate (8) Hypertension, essential Status: Chronic
--- NOTE | 2018-02-19 17:37 | Cat Scan Report ---
CLINICAL INFORMATION: Abdominal pain, nausea and vomiting COMPARISON: None. TECHNIQUE: Following enteric contrast, 80 cc of Isovue-300 were injected intravenously, and 60 seconds later, 0.625 mm helical slices were obtained from the mid heart through the subtrochanteric regions. Following reconstruction, 2.5 mm sagittal, coronal and axial reformatted images were processed and reviewed at bone, lung and soft tissue windows. Five minutes later, 0.625 mm helical slices were obtained from the mid heart through the kidneys and viewed at soft tissue windows.The exam was performed using radiation dose optimization techniques including, but not limited to, automated exposure control, adjustment of the mA and/or kV according to patient size and use of iterative reconstruction technique. FINDINGS: Lung bases show no abnormality. Tiny bilateral pleural effusions noted. The heart is moderately enlarged and there is heavy calcific plaque throughout the visualized coronary arteries with coronary bypass changes Images through the abdomen show mild fatty changes within the liver with inhomogeneous attenuation. No focal hepatic lesions. Suspect multiple cholesterol stones packing the gallbladder which are poorly visualized on CT. Gallbladder wall is normal thickness - 2 mm. The intrahepatic and extrahepatic bile ducts are normal caliber - CBD is 5 mm. Both adrenal glands, spleen, pancreas are normal. The aorta is normal in contour and caliber riddled with moderately heavy calcific plaque. There is very heavy calcific plaque in both renal arteries origins - bilateral stenoses, greater than 70%, are suspected. There is a possibility of partially included bilateral stents in the proximal renal arteries - these are not well visualized. The celiac, SMA and BETH arteries contains calcified plaque, but no stenosis. Both common, external iliac common femoral arteries contains calcified plaque, but no definite stenoses. There is a high-grade stenosis of the right internal iliac artery. Greater than 80%. Both kidneys are mildly atrophic: the left is 8.6 x 4.6 cm and the right is 8 x 4.6 cm. No focal renal lesions. There is no free air, free fluid or adenopathy. Stomach, small/large bowel and appendix are normal. Images should the pelvis show urinary bladder to be normal volume with diffuse wall thickening. IUD is malpositioned: The distal end projects through the endocervical canal with the tip tenting the posterior vaginal wall. Both ovaries are unremarkable - each approximately 3 x 2.5 cm. Bone windows show no osseous abnormality. IMPRESSION: 1. Probable cholelithiasis: It is suspected that there are large number of cholesterol stones packing the gallbladder. They are very poorly visualized by CT. Consider limited gallbladder ultrasound to confirm. The gallbladder and bile ducts are otherwise normal no cholecystitis. 2. Malpositioned IUD: The distal portion extends through the endocervical canal with the tip tenting the posterior vaginal wall. 3. Mild diffuse urinary bladder wall thickening. This can be artifact or secondary to diffuse infiltrative pathology such as cystitis 4. Mild bilateral renal atrophy. There is heavy calcific plaque in both renal artery origins - suspect significant stenoses which cannot be graded due to blooming artifact from the calcific plaque. 5. 80% stenosis right internal iliac artery Interpreted and Authenticated by: Zion Valles 02/19/18
--- NOTE | 2018-02-19 18:38 | Ultrasound Report ---
CLINICAL INFORMATION: cholelithiasis COMPARISON: Abdominal CT 02/19/2018. FINDINGS: There are multiple stones packing the gallbladder. Gallbladder wall is mildly thickened (4 mm) and there is focal tenderness over the gallbladder supportive of associated cholecystitis. Common bile duct is normal: 5 mm. The liver is mildly hyperechoic bowel with fatty change - no focal hepatic lesions. Pancreas is normal. No free fluid IMPRESSION: Cholecystitis Interpreted and Authenticated by: Zion Valles 02/19/18
--- NOTE | 2018-02-19 18:56 | Internal Med Progress Note ---
Medical - PN: Subj Patient information: Note initiated : 02/19/18 at 6:54 pm Service Date, if different from initiated Date: [] Patient: Louisa Cohn a 42 y/o F admitted on 02/18/18 for N/V, Constipation. Chief Complaint: [] Interval history: Ms. Cohn is a 42 year old F with multiple medical issues, type II diabetic for last 20 years, right BKA, end-stage renal disease on hemodialysis, recent cardiac bypass surgery, pulmonary embolism in August 2017. Presently on Coumadin. Presents to the emergency room from her dialysis unit. The patient notes she has not been feeling well for the last 6 weeks, the patient has had decreased appetite and has not been eating very well since then. She is also had some nausea and vomiting. Over the last 3 weeks she has noticed that her stool color has changed and it is more darker than before. She has not had much bowel movement for the last 1 week as she has not eaten much. For the last week and a half she has been having intractable nausea and vomiting, she has not been able to eat much at all. She notes that the vomit happens with or without any association with meals, but if she eats something she will definitely threw up. It is biliary in nature, denies any blood in there. She has had intermittent projectile vomiting. The patient denies any abdominal pain, admits to having flulike symptoms just cold all the time. She denies any other acute symptoms. She denies any headache, changes in vision, she has intermittent difficulty in swallowing, she denies any cough shortness of breath or active chest pain. She denies any abdominal pain just some discomfort, denies any bowel bladder complaints, she has had diarrhea in the past, she was being followed by GI and was supposed to have a colonoscopy done. She notes that she never had a colonoscopy done because of her cardiac issue. Today on dialysis at the end of the dialysis. She has had multiple episodes of vomiting which did not respond to Zofran, she is also had significant weight loss over the last 6 weeks and therefore was sent to the emergency room for further evaluation. In the emergency room the patient received 2 doses of IV Reglan with some response. Given her weight loss acuity of symptom the patient is being admitted to the hospital for further evaluation. In the emergency room patient has been afebrile temperature 97.1, heart rate 94 , she is also had few runs of tachycardia. Blood pressure stable 107/68 respirations 18 saturations are 99% on room air. Chest x-ray done is negative for acute infiltrates to my interpretation. Abdominal x-ray is reported as negative. EKG shows sinus tachycardia ST-T wave changes inversions in anterior and lateral leads. Patient had lateral lead changes in the previous EKG anteriorly changes in V2 and V3 are new. Patient is asymptomatic has had cardiac bypass surgery. The patient's labs show mild leukocytosis at 11.4, hemoglobin 12.7, platelets 253. Sodium 132 potassium 4.3 bicarbonate 22. Creatinine 1.1 glucose 129. Alkaline phosphatase 234 and lipase is less than 7. INR is 1.8. 02/19 Patient seen and examined, no acute overnight events, nausea much better. She had a CT scan of the abdomen and pelvis which is negative except for possible gallstones ultrasound was advised which we are trying to get. She had low glucose values and needed dextrose x2. She also had an episode in which there was some slurring of speech glucose value was 58 slurring of speech responded to IV dextrose administration. EGD was not possible today as we do not have a GI physician carbon cutter. I have consulted Dr. Cohn to help me out with endoscopy this will be planned for tomorrow. At this point in time we are not sure the patient has gallstone disease, she may benefit from a cholecystectomy if she is found to have significant gallstone disease. Pertinent ROS: Denies headache, dizziness Denies chest pain, palpitations Denies cough or shortness of breath Denies abdominal pain, nausea or vomiting. - Constitutional Vitals: Vital Signs Temp Pulse Resp BP Pulse Ox 97.8 F 65 16 120/69 100 02/19/18 17:15 02/19/18 15:38 02/19/18 17:15 02/19/18 17:15 02/19/18 17:15 Period Temp Pulse Resp BP Sys/Brenner Pulse Ox Last 24 Hr 96.8 F-98.5 F 65-115 14-18 98-132/66-85 91-100 Intake and Output 02/19/18 02/19/18 02/19/18 05:59 13:59 21:59 Intake Total 50 / 50 Output Total 0 / 0 100 / 100 Balance 50 / 50 -100 / -100 Weight 135 lb 8 oz Intake & Output: Intake & Output 02/19/18 02/19/18 02/19/18 05:59 13:59 21:59 Intake Total 50 / 50 Output Total 0 / 0 100 / 100 Balance 50 / 50 -100 / -100 Weight 135 lb 8 oz Intake: Oral 50 / 50 Output: Void Amount 0 / 0 Stool 100 / 100 Other: Stool Size Small Small Stool Color Brown Brown Stool Consistency Liquid Liquid # Bowel Movements 2 1 # of times incontinent of 1 Bowels Exam: Constitutional; Afebrile, cooperative, alert, not in distress. Eyes- No icterus, , No periorbital swelling Ears- Ext ear normal, hearing normal to conversation. Neck- Midline trachea, supple Respiratory system: Air Entry equal on both sides, No crackles or wheezing, no rhonchi. CVS- Rate rhythm regular, S1,S2 heard, no gallop, no rub. 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 Medical - PN: Obj Da - Labs CBC & Chem 7: 02/19/18 04:05 02/19/18 04:05 Labs: Abnormal Lab Results 02/19/18 02/19/18 02/19/18 04:05 04:05 04:05 WBC Hgb Hct RDW MPV Gran # PT 22.6 H INR 2.0 H Sodium Chloride 94 L Carbon Dioxide 21 L Anion Gap 20.0 H Creatinine 1.6 H Glucose Uric Acid 1.5 L Calcium Phosphorus 1.9 L GGT 39 H Alkaline Phosphatase 187 H Troponin T 0.07 H* Total Protein 5.6 L Albumin 2.5 L Globulin Albumin/Globulin Ratio 0.8 L Lipase 02/19/18 02/18/18 02/18/18 04:05 17:57 17:57 WBC 11.4 H Hgb 10.9 L Hct 34.5 L RDW 17.3 H 17.8 H MPV 11.5 H 10.6 H Gran # 8.7 H PT INR Sodium 132 L Chloride 89 L Carbon Dioxide Anion Gap 21.0 H Creatinine Glucose 129 H Uric Acid Calcium 8.4 L Phosphorus GGT Alkaline Phosphatase 234 H Troponin T Total Protein Albumin 2.9 L Globulin 3.8 H Albumin/Globulin Ratio 0.8 L Lipase < 7 L 02/18/18 02/18/18 17:15 17:15 WBC Hgb Hct RDW MPV Gran # PT 21.1 H INR 1.8 H Sodium Chloride Carbon Dioxide Anion Gap Creatinine Glucose Uric Acid Calcium Phosphorus GGT Alkaline Phosphatase Troponin T 0.06 H* Total Protein Albumin Globulin Albumin/Globulin Ratio Lipase Meds: Medications Acetaminophen (Tylenol) 650 mg PO Q6HP PRN PRN Reason: PAIN/FEVER > 101 Albuterol Sulfate (Ventolin) 2.5 mg NEB Q2HP PRN PRN Reason: Shortness Of Breath Atorvastatin Calcium (Lipitor) 40 mg PO HS [facility] Last Admin: 02/18/18 22:03 Dose: 40 mg Cinacalcet (Sensipar) 30 mg PO [facility] Dextrose (Dextrose 50%) 0 ml IV UD PRN PRN Reason: Hypoglycemia Last Admin: 02/19/18 17:12 Dose: 25 ml Diagnostic Test (Pha) (Accu-Chek) 1 each FS [facility] Last Admin: 02/19/18 17:11 Dose: 1 each Glucose (Insta-Glucose) 15 gm PO PRN PRN PRN Reason: Hypoglycemia Hydromorphone HCl (Dilaudid) 0.5 mg IV Q2HP PRN PRN Reason: PAIN LEVEL > 6 Insulin Human Lispro (Humalog) 0 unit SQ [facility]; Protocol Last Admin: 02/19/18 17:12 Dose: Not Given Metoclopramide HCl (Reglan) 10 mg IV [facility] Last Admin: 02/19/18 18:49 Dose: 10 mg Metoprolol Tartrate (Lopressor) 100 mg PO BID [facility] Last Admin: 02/19/18 09:49 Dose: 100 mg Naloxone HCl (Narcan) 0.1 mg IV Q2MIN PRN PRN Reason: Opiate Reversal Ondansetron HCl (Zofran) 4 mg IV Q6HP PRN PRN Reason: Nausea And Vomiting Oxycodone HCl (Roxicodone) 5 mg PO Q4HP PRN PRN Reason: PAIN LEVEL 3-6 [facility]oprazole [facility]) [facility] Last Admin: 02/19/18 18:49 Dose: 40 mg Promethazine HCl (Phenergan) 12.5 mg IV Q6HP PRN PRN Reason: Nausea And Vomiting Sertraline HCl (Zoloft) 50 mg PO QDAY [facility] Last Admin: 02/19/18 09:50 Dose: 50 mg Sevelamer Carbonate (Renvela) 1,600 mg PO TIDCC [facility] Last Admin: 02/19/18 18:48 Dose: Not Given Sodium Chloride (Saline Flush) 10 ml IV Q8 [facility] Last Admin: 02/19/18 15:14 Dose: 10 ml Venlafaxine HCl (Effexor Xr) 225 mg PO DAILY [facility] Last Admin: 02/19/18 09:50 Dose: 225 mg Warfarin Sodium (Coumadin Per Pharmacy) 1 order PO UD [facility] Medical - PN: A/P - Time Spent With Patient Total time spent is greater than 50% in coordination of care (as documented) at patient's floor/unit and/or counseling patient: - Narrative A/P Narrative: A/P Nausea/ vomiting Dehydration Weight loss Diabetes Mellitus Hypertension Hyperlipidemia Coronary Artery Disease s/p CABG Pulmonary Embolus, within last 6 months END stage renal disease on dialysis Chronic Diarrhea Depression Cholelithiaisis Hypoglycemia Plan Tachycardia resolved prn glucose supplemntation, advance diet NPO MN for EGD in AM if neg , and pt able to tolerate diet will anticpate d/c mild elevation of troponin due to renal dysfunction s/p HD today Encourage po intake DVT coumadin with therapeutic inr Full code renal, carb consistent diet. Medical - PN: Qual - Stroke Symptom Onset Unknown: No - VTE Deep Vein Thrombosis/Pulmonary Embolism Present on Admission: Yes
[2018-02-19] MEDS: ATORVASTATIN 20 MG TABLET PO SCH (20:29)
[2018-02-19] MEDS ORDERED: CINACALCET 30 MG TABLET PO SCH (21:00)
[2018-02-20] MEDS: 0.9 % SODIUM CHLORIDE 10 ML SYRINGE IV SCH ×4 (06:00→22:13)
[2018-02-20 06:26] LABS: Basophils # (Auto) 0.1 K/mcL (0.0-0.3); Basophils % (Auto) 1.1 % (0.0-2.0); Eosinophils # (Auto) 0.1 K/mcL (0.0-0.7); Eosinophils % (Auto) 1.7 % (0.0-7.0); Granulocytes % (Auto) 56.2 % (38.0-78.0); Lymphocytes # (Auto) 2.2 K/mcL (1.5-4.8); Lymphocytes % (Auto) 30.3 % (15.5-49.0); Mean Corpuscular HGB Conc 31.2 g/dL (31.0-36.0); Mean Corpuscular Hemoglobin 27.1 pg (26.0-34.0); Monocytes # (Auto) 0.8 K/mcL (0.1-0.9); Monocytes % (Auto) 10.7 % (1.0-12.0); Platelet Count 180 K/mcL (140-440); Red Cell Distribution Width 17.5 % (11.5-14.5)
[2018-02-20] MEDS: INSULIN LISPRO 1 UNIT/0.01 ML UNIT SQ SCH ×4 (06:42→22:12)
[2018-02-20 06:50] LABS: ALT/SGPT 8 U/l (0-40); Albumin 2.2 gm/dL (3.2-5.2); Albumin/Globulin Ratio 0.7 (1.0-2.3); Alkaline Phosphatase 206 U/L (39-117); Bilirubin,Direct < 0.2 mg/dL (0.0-0.3); Blood Urea Nitrogen 4 mg/dl (6-20); Gamma Glutamyl Transpeptidase 40 U/L (5-36); Uric Acid 1.8 mg/dL (2.5-8.0)
[2018-02-20] MEDS: METOCLOPRAMIDE 10 MG/2 ML VIAL IV SCH ×4 (07:44→20:32)
[2018-02-20] MEDS: PANTOPRAZOLE 40 MG VIAL IV SCH ×2 (07:44→17:11)
[2018-02-20] MEDS ORDERED: METOCLOPRAMIDE 10 MG/2 ML VIAL IV ONE (08:25)
[2018-02-20] MEDS ORDERED: LIDOCAINE HCL/PF 100 MG/5 ML SYRINGE IV ONE (08:25)
[2018-02-20] MEDS ORDERED: ONDANSETRON 4 MG/2 ML VIAL IV ONE (08:25)
[2018-02-20] MEDS ORDERED: KETAMINE 100 MG/ML ML IV ONE (08:25)
[2018-02-20] MEDS ORDERED: GLYCOPYRROLATE 0.2 MG/ML VIAL IV ONE (08:25)
[2018-02-20] MEDS ORDERED: PROPOFOL 200 MG/20 ML VIAL IV ONE (08:25)
[2018-02-20] MEDS ORDERED: fentaNYL 100 MCG/2 ML VIAL IV ONE (08:25)
[2018-02-20] MEDS ORDERED: MIDAZOLAM 5 MG/5 ML VIAL IV ONE (08:25)
[2018-02-20] MEDS ORDERED: METOPROLOL TARTRATE 5 MG/5 ML VIAL IV ONE (08:25)
--- NOTE | 2018-02-20 09:02 | Brief Operative Note ---
Date of procedure: 02/20/18 Pre-op diagnosis: recurrent nausea and vomiting Post-op diagnosis: other (gastroparesis ;diffuse gastritis;fundic gland polyps; distal esophageal erosion) Procedure: egd with biopsies of stomach and ge junction Grafts/Implants: No Anesthesia: MAC Findings: DILATED STOMACH WITH RETAINED GASTRIC BILE POOL;NO VISIBLE ACTIVE PERISTALSIS; DIFFUSE INFLAMMATION OF ENTIRE STOMACH,MUCH WORSE IN ANTRUM,SCATTERED FUNDIC GLAND POLYPS (BIOPSIED) CHRONIC SUPERFICIAL ULCERATION OF GE JUNCTION;POOR PERISTALSIS OF ESOPHAGUS; NORMAL DUODENUM Complications: none Surgeon: Celia Cohn Specimens Removed/Pathology: other (MULTIPLE BIOPSIES OF GEJUNCTION;FUNDIC POLYPS;ANTRAL INFLAMMATION) Condition: stable Disposition: floor
--- NOTE | 2018-02-20 09:11 | General Surgery Progress Note ---
Subjective Patient reports: feels better, flatus, afebrile Narrative: Note initiated : 02/20/18 at 9:07 am Service Date, if different from initiated Date: [] Patient: Louisa Cohn 42 y/o F admitted on 02/18/18 for N/V, Constipation. Chief Complaint: [ PATIENT HAD AN UNEVENTFUL NIGHT. EGD SHOWS DIFFUSE GASTRITIS ;RETAINED BILE AND AOOR PERISTALSIS . SHE DEVELOPED SIGNIFICANT PERISTALSIS ABOUT 4 MINUTES AFTER SHE WAS GIVEN 10 MG IV REGLAN; PATIENT ALSO HAS EXTENSIVE GALLSTONE DISEASE AND WILL BENEFIT FROM CHOLECYSTECTOMY . ] Objective Temp Pulse Resp BP Pulse Ox 97 F 70 16 121/82 98 02/20/18 06:39 02/20/18 04:00 02/20/18 06:39 02/20/18 06:39 02/20/18 06:39 - Additional Data Intake & Output - Last 24 hours: Intake & Output 02/18/18 02/19/18 02/20/18 02/21/18 05:59 05:59 05:59 05:59 Intake Total 108 / 108 100 / 100 Output Total 0 / 0 150 / 150 Balance 108 / 108 -50 / -50 Weight 135 lb 8 oz 137 lb - Labs 02/20/18 04:00 02/20/18 04:00 Diabetes panel 02/20/18 Range/Units 04:00 Sodium 132 L (133-145) mmol/L Potassium 3.7 (3.3-5.1) mmol/L Chloride 95 L (96-108) mmol/L Carbon Dioxide 23 (22-30) mmol/L BUN 4 L (6-20) mg/dl Creatinine 1.5 H (0.6-1.1) mg/dl Glucose 101 (70-105) mg/dL Calcium 8.1 L (8.6-10.4) mg/dl AST 21 (0-37) U/l ALT 8 (0-40) U/l Alkaline Phosphatase 206 H (39-117) U/L Total Protein 5.4 L (5.9-8.4) gm/dL Albumin 2.2 L (3.2-5.2) gm/dL Triglycerides 100 (<150) mg/dl Calcium panel 02/20/18 Range/Units 04:00 Calcium 8.1 L (8.6-10.4) mg/dl Phosphorus 1.8 L (2.7-4.5) mg/dL Albumin 2.2 L (3.2-5.2) gm/dL Pituitary panel 02/20/18 Range/Units 04:00 Sodium 132 L (133-145) mmol/L Potassium 3.7 (3.3-5.1) mmol/L Chloride 95 L (96-108) mmol/L Carbon Dioxide 23 (22-30) mmol/L BUN 4 L (6-20) mg/dl Creatinine 1.5 H (0.6-1.1) mg/dl Glucose 101 (70-105) mg/dL Calcium 8.1 L (8.6-10.4) mg/dl Adrenal panel 02/20/18 Range/Units 04:00 Sodium 132 L (133-145) mmol/L Potassium 3.7 (3.3-5.1) mmol/L Chloride 95 L (96-108) mmol/L Carbon Dioxide 23 (22-30) mmol/L BUN 4 L (6-20) mg/dl Creatinine 1.5 H (0.6-1.1) mg/dl Glucose 101 (70-105) mg/dL Calcium 8.1 L (8.6-10.4) mg/dl Total Bilirubin 0.4 (0.0-1.0) mg/dL AST 21 (0-37) U/l ALT 8 (0-40) U/l Alkaline Phosphatase 206 H (39-117) U/L Total Protein 5.4 L (5.9-8.4) gm/dL Albumin 2.2 L (3.2-5.2) gm/dL Assessment and Plan (1) Intractable nausea and vomiting Status: Acute Assessment and plan: START REGLAN 10 MG TID SCHEDULE FOR CHOLECYSTECTOMY ON THURSDAY Current Visit: Yes (2) Peripheral vascular disease due to secondary diabetes Status: Chronic Current Visit: Yes (3) End stage renal disease on dialysis Status: Chronic Current Visit: Yes (4) Anemia of chronic renal failure Status: Chronic Current Visit: No (5) CAD (coronary artery disease) Status: Chronic Current Visit: No (6) DMII (diabetes mellitus, type 2) Status: Chronic Current Visit: No (7) Depression Status: Chronic Current Visit: No (8) Hypertension, essential Status: Chronic Current Visit: No - Time Spent With Patient Total time spent is greater than 50% in coordination of care (as documented) at patient's floor/unit and/or counseling patient:
[2018-02-20] MEDS ORDERED: HYDROmorphone 2 MG/ML VIAL IV PRN (09:42)
[2018-02-20] MEDS ORDERED: DEXTROSE 50% 50 ML VIAL IV PRN (09:42)
[2018-02-20] MEDS ORDERED: ALBUTEROL SULFATE 2.5 MG/3 ML NEBULIZER NEB PRN (09:42)
[2018-02-20] MEDS ORDERED: oxyCODONE HCL 5 MG TABLET PO PRN (09:42)
[2018-02-20] MEDS ORDERED: ACETAMINOPHEN 325 MG TABLET PO PRN (09:42)
[2018-02-20] MEDS ORDERED: PROMETHAZINE 25 MG/ML VIAL IV PRN (09:42)
[2018-02-20] MEDS ORDERED: ONDANSETRON 4 MG/2 ML VIAL IV PRN (09:42)
[2018-02-20] MEDS ORDERED: 0.9 % SODIUM CHLORIDE 250 ML IV SCH (09:42)
[2018-02-20] MEDS ORDERED: NALOXONE HCL 0.4 MG/ML VIAL IV PRN (09:42)
[2018-02-20] MEDS ORDERED: DEXTROSE 31 GM ORAL.SUSP PO PRN (09:42)
[2018-02-20] MEDS: PHYTONADIONE 10 MG/ML AMPUL SQ SCH ×2 (10:30→18:02)
[2018-02-20] MEDS: CIPROFLOXACIN 400 MG/200 ML BAG IV SCH (10:30)
[2018-02-20] MEDS: SERTRALINE 50 MG TABLET PO SCH (11:09)
[2018-02-20] MEDS: VENLAFAXINE 75 MG CAP.XL.24H PO SCH (11:10)
[2018-02-20] MEDS: METOPROLOL TARTRATE 50 MG TABLET PO SCH ×2 (11:10→20:31)
[2018-02-20] MEDS: SEVELAMER 800 MG TABLET PO SCH ×3 (11:10→17:11)
[2018-02-20] MEDS: 0.45 % SODIUM CHLORIDE 1,000 ML IV SCH (13:47)
--- NOTE | 2018-02-20 14:05 | Internal Med Progress Note ---
Medical - PN: Subj Patient information: Note initiated : 02/20/18 at 2:02 pm Service Date, if different from initiated Date: [] Patient: Louisa Cohn a 42 y/o F admitted on 02/20/18 for N/V, Constipation. Chief Complaint: [] Interval history: Ms. Cohn is a 42 year old F with multiple medical issues, type II diabetic for last 20 years, right BKA, end-stage renal disease on hemodialysis, recent cardiac bypass surgery, pulmonary embolism in August 2017. Presently on Coumadin. Presents to the emergency room from her dialysis unit. The patient notes she has not been feeling well for the last 6 weeks, the patient has had decreased appetite and has not been eating very well since then. She is also had some nausea and vomiting. Over the last 3 weeks she has noticed that her stool color has changed and it is more darker than before. She has not had much bowel movement for the last 1 week as she has not eaten much. For the last week and a half she has been having intractable nausea and vomiting, she has not been able to eat much at all. She notes that the vomit happens with or without any association with meals, but if she eats something she will definitely threw up. It is biliary in nature, denies any blood in there. She has had intermittent projectile vomiting. The patient denies any abdominal pain, admits to having flulike symptoms just cold all the time. She denies any other acute symptoms. She denies any headache, changes in vision, she has intermittent difficulty in swallowing, she denies any cough shortness of breath or active chest pain. She denies any abdominal pain just some discomfort, denies any bowel bladder complaints, she has had diarrhea in the past, she was being followed by GI and was supposed to have a colonoscopy done. She notes that she never had a colonoscopy done because of her cardiac issue. Today on dialysis at the end of the dialysis. She has had multiple episodes of vomiting which did not respond to Zofran, she is also had significant weight loss over the last 6 weeks and therefore was sent to the emergency room for further evaluation. In the emergency room the patient received 2 doses of IV Reglan with some response. Given her weight loss acuity of symptom the patient is being admitted to the hospital for further evaluation. In the emergency room patient has been afebrile temperature 97.1, heart rate 94 , she is also had few runs of tachycardia. Blood pressure stable 107/68 respirations 18 saturations are 99% on room air. Chest x-ray done is negative for acute infiltrates to my interpretation. Abdominal x-ray is reported as negative. EKG shows sinus tachycardia ST-T wave changes inversions in anterior and lateral leads. Patient had lateral lead changes in the previous EKG anteriorly changes in V2 and V3 are new. Patient is asymptomatic has had cardiac bypass surgery. The patient's labs show mild leukocytosis at 11.4, hemoglobin 12.7, platelets 253. Sodium 132 potassium 4.3 bicarbonate 22. Creatinine 1.1 glucose 129. Alkaline phosphatase 234 and lipase is less than 7. INR is 1.8. 02/19 Patient seen and examined, no acute overnight events, nausea much better. She had a CT scan of the abdomen and pelvis which is negative except for possible gallstones ultrasound was advised which we are trying to get. She had low glucose values and needed dextrose x2. She also had an episode in which there was some slurring of speech glucose value was 58 slurring of speech responded to IV dextrose administration. EGD was not possible today as we do not have a GI physician urgent care nurse practitioner. I have consulted Dr. Cohn to help me out with endoscopy this will be planned for tomorrow. At this point in time we are not sure the patient has gallstone disease, she may benefit from a cholecystectomy if she is found to have significant gallstone disease. 02/20 Patient seen and examined, no acute overnight events, no nausea. Patient was able to tolerate her supper last night. Ultrasound of the gallbladder shows acute cholecystitis. EGD done today shows gastritis some healing esophageal scar, and poor motility indicative of gastroparesis. Plan for cholecystectomy on Thursday. Patient will be transferred to inpatient status. Pertinent ROS: Denies headache, dizziness Denies chest pain, palpitations Denies cough or shortness of breath Denies abdominal pain, nausea or vomiting. - Constitutional Vitals: Vital Signs Temp Pulse Resp BP Pulse Ox 97.2 F 77 18 109/68 96 02/20/18 11:26 02/20/18 11:26 02/20/18 11:26 02/20/18 11:26 02/20/18 11:26 Period Temp Pulse Resp BP Sys/Brenner Pulse Ox Last 24 Hr 97 F-98 F 65-82 14-18 97-123/55-82 91-100 Intake and Output 02/20/18 02/20/18 02/20/18 05:59 13:59 21:59 Intake Total 100 / 100 Output Total 50 / 50 Balance 50 / 50 Weight 137 lb Patient Weight 02/21/18 05:59 Weight 137 lb Intake & Output: Intake & Output 02/20/18 02/20/18 02/20/18 05:59 13:59 21:59 Intake Total 100 / 100 Output Total 50 / 50 Balance 50 / 50 Weight 137 lb Intake: Oral 100 / 100 Output: Void Amount 50 / 50 Other: Meal Lunch Percent of Meal Consumed 25% Urine Appearance Straight Cloudy Urine Color Straight Pale Stool Size Small Stool Color Brown Stool Consistency Loose # Voids 1 # Bowel Movements 1 Exam: Constitutional; Afebrile, cooperative, alert, not in distress. Eyes- No icterus, , No periorbital swelling Ears- Ext ear normal, hearing normal to conversation. Neck- Midline trachea, supple Respiratory system: Air Entry equal on both sides, No crackles or wheezing, no rhonchi. CVS- Rate rhythm regular, S1,S2 heard, no gallop, no rub. 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 Medical - PN: Obj Da - Labs CBC & Chem 7: 02/20/18 04:00 02/20/18 04:00 Labs: Abnormal Lab Results 02/20/18 02/20/18 02/20/18 04:00 04:00 04:00 WBC Hgb 10.9 L Hct 34.8 L RDW 17.5 H MPV 10.7 H Gran # PT 23.0 H INR 2.0 H Sodium 132 L Chloride 95 L Carbon Dioxide Anion Gap BUN 4 L Creatinine 1.5 H Glucose Uric Acid 1.8 L Calcium 8.1 L Phosphorus 1.8 L GGT 40 H Alkaline Phosphatase 206 H Troponin T Total Protein 5.4 L Albumin 2.2 L Globulin Albumin/Globulin Ratio 0.7 L Lipase 02/19/18 02/19/18 02/19/18 04:05 04:05 04:05 WBC Hgb Hct RDW MPV Gran # PT 22.6 H INR 2.0 H Sodium Chloride 94 L Carbon Dioxide 21 L Anion Gap 20.0 H BUN Creatinine 1.6 H Glucose Uric Acid 1.5 L Calcium Phosphorus 1.9 L GGT 39 H Alkaline Phosphatase 187 H Troponin T 0.07 H* Total Protein 5.6 L Albumin 2.5 L Globulin Albumin/Globulin Ratio 0.8 L Lipase 02/19/18 02/18/18 02/18/18 04:05 17:57 17:57 WBC 11.4 H Hgb 10.9 L Hct 34.5 L RDW 17.3 H 17.8 H MPV 11.5 H 10.6 H Gran # 8.7 H PT INR Sodium 132 L Chloride 89 L Carbon Dioxide Anion Gap 21.0 H BUN Creatinine Glucose 129 H Uric Acid Calcium 8.4 L Phosphorus GGT Alkaline Phosphatase 234 H Troponin T Total Protein Albumin 2.9 L Globulin 3.8 H Albumin/Globulin Ratio 0.8 L Lipase < 7 L 02/18/18 02/18/18 17:15 17:15 WBC Hgb Hct RDW MPV Gran # PT 21.1 H INR 1.8 H Sodium Chloride Carbon Dioxide Anion Gap BUN Creatinine Glucose Uric Acid Calcium Phosphorus GGT Alkaline Phosphatase Troponin T 0.06 H* Total Protein Albumin Globulin Albumin/Globulin Ratio Lipase Meds: Medications Acetaminophen (Tylenol) 650 mg PO Q6HP PRN PRN Reason: PAIN/FEVER > 101 Albuterol Sulfate (Ventolin) 2.5 mg NEB Q2HP PRN PRN Reason: Shortness Of Breath Atorvastatin Calcium (Lipitor) 40 mg PO HS [facility] Cinacalcet (Sensipar) 30 mg PO HS [facility] Dextrose (Dextrose 50%) 0 ml IV UD PRN PRN Reason: Hypoglycemia Diagnostic Test (Pha) (Accu-Chek) 1 each FS [facility] Last Admin: 02/20/18 11:20 Dose: 1 each Glucose (Insta-Glucose) 15 gm PO PRN PRN PRN Reason: Hypoglycemia Hydromorphone HCl (Dilaudid) 0.5 mg IV Q2HP PRN PRN Reason: PAIN LEVEL > 6 Ciprofloxacin (Cipro) 400 mg in 200 mls @ 200 mls/hr IV DAILY [facility] Last Admin: 02/20/18 10:30 Dose: 200 mls/hr Sodium Chloride (Sodium Chloride 0.45%) 1,000 mls @ 10 mls/hr IV .Q24H [facility] Last Admin: 02/20/18 13:47 Dose: Not Given Insulin Human Lispro (Humalog) 0 unit SQ [facility]; Protocol Last Admin: 02/20/18 11:20 Dose: Not Given Metoclopramide HCl (Reglan) 10 mg IV [facility]CH[facility] Last Admin: 02/20/18 11:20 Dose: 10 mg Metoprolol Tartrate (Lopressor) 100 mg PO BID [facility] Naloxone HCl (Narcan) 0.1 mg IV Q2MIN PRN PRN Reason: Opiate Reversal Ondansetron HCl (Zofran) 4 mg IV Q6HP PRN PRN Reason: Nausea And Vomiting Oxycodone HCl (Roxicodone) 5 mg PO Q4HP PRN PRN Reason: PAIN LEVEL 3-6 Pantoprazole Sodium (Protonix) 40 mg IV BIDAC [facility] Phytonadione (Aquamephyton) 10 mg SQ Q8H [facility] Stop: 02/21/18 02:01 Last Admin: 02/20/18 10:30 Dose: 10 mg Promethazine HCl (Phenergan) 12.5 mg IV Q6HP PRN PRN Reason: Nausea And Vomiting Sertraline HCl (Zoloft) 50 mg PO QDAY [facility] Sevelamer Carbonate (Renvela) 1,600 mg PO TIDCC [facility] Last Admin: 02/20/18 13:47 Dose: Not Given Sodium Chloride (Saline Flush) 10 ml IV Q8 [facility] Last Admin: 02/20/18 13:47 Dose: Not Given Venlafaxine HCl (Effexor Xr) 225 mg PO DAILY [facility] Medical - PN: A/P - Time Spent With Patient Total time spent is greater than 50% in coordination of care (as documented) at patient's floor/unit and/or counseling patient: - Narrative A/P Narrative: A/P Nausea/ vomiting Dehydration Weight loss Diabetes Mellitus Hypertension Hyperlipidemia Coronary Artery Disease s/p CABG Pulmonary Embolus, within last 6 months END stage renal disease on dialysis Chronic Diarrhea Depression Cholelithiaisis/ Acute cholecystitis Hypoglycemia Plan IV cipro started xfer to inpt status. advance diet paln for cholecystectomy on thursday HD planned for tomorrow, lytes stable. mild elevation of troponin due to renal dysfunction Encourage po intake on PPI, reglan DVT coumadin with therapeutic inr/ to be reversed for surgyery on thursday Full code renal, carb consistent diet. Medical - PN: Qual - Stroke Symptom Onset Unknown: No - VTE Deep Vein Thrombosis/Pulmonary Embolism Present on Admission: Yes
[2018-02-20] MEDS: CINACALCET 30 MG TABLET PO SCH (20:31)
[2018-02-20] MEDS: ATORVASTATIN 20 MG TABLET PO SCH (20:31)
[2018-02-21] MEDS: PHYTONADIONE 10 MG/ML AMPUL SQ SCH (01:36)
[2018-02-21] MEDS: 0.9 % SODIUM CHLORIDE 10 ML SYRINGE IV SCH ×3 (06:36→21:02)
[2018-02-21 06:52] LABS: Basophils # (Auto) 0.1 K/mcL (0.0-0.3); Basophils % (Auto) 0.8 % (0.0-2.0); Eosinophils # (Auto) 0.2 K/mcL (0.0-0.7); Eosinophils % (Auto) 2.9 % (0.0-7.0); Granulocytes % (Auto) 54.9 % (38.0-78.0); Lymphocytes % (Auto) 31.7 % (15.5-49.0); Mean Cell Volume 86.8 fL (80.0-100.0); Mean Corpuscular HGB Conc 31.5 g/dL (31.0-36.0); Mean Corpuscular Hemoglobin 27.3 pg (26.0-34.0); Monocytes # (Auto) 0.6 K/mcL (0.1-0.9); Monocytes % (Auto) 9.7 % (1.0-12.0); Platelet Count 176 K/mcL (140-440); RBC 3.85 M/mcL (4.00-5.20); Red Cell Distribution Width 17.7 % (11.5-14.5)
[2018-02-21] MEDS: INSULIN LISPRO 1 UNIT/0.01 ML UNIT SQ SCH ×4 (07:10→21:01)
[2018-02-21 07:25] LABS: ALT/SGPT 11 U/l (0-40); Albumin 2.7 gm/dL (3.2-5.2); Albumin/Globulin Ratio 0.8 (1.0-2.3); Alkaline Phosphatase 188 U/L (39-117); Bilirubin,Direct < 0.2 mg/dL (0.0-0.3); Blood Urea Nitrogen 5 mg/dl (6-20); Gamma Glutamyl Transpeptidase 43 U/L (5-36)
[2018-02-21] MEDS: PANTOPRAZOLE 40 MG VIAL IV SCH ×2 (07:30→16:44)
[2018-02-21] MEDS: METOCLOPRAMIDE 10 MG/2 ML VIAL IV SCH ×4 (07:30→20:58)
[2018-02-21] MEDS: VENLAFAXINE 75 MG CAP.XL.24H PO SCH (09:12)
[2018-02-21] MEDS: SERTRALINE 50 MG TABLET PO SCH (09:12)
[2018-02-21] MEDS: CIPROFLOXACIN 400 MG/200 ML BAG IV SCH (09:13)
[2018-02-21] MEDS: METOPROLOL TARTRATE 50 MG TABLET PO SCH ×2 (09:13→20:57)
[2018-02-21] MEDS: SEVELAMER 800 MG TABLET PO SCH ×3 (09:26→16:49)
--- NOTE | 2018-02-21 12:34 | General Surgery Progress Note ---
Subjective Patient reports: feels better, pain is less, tolerating a regular diet, flatus, bowel movement, afebrile Narrative: Note initiated : 02/21/18 at 12:33 pm Service Date, if different from initiated Date: [] Patient: Louisa Cohn 42 y/o F admitted on 02/20/18 for N/V, Constipation. Chief Complaint: [Patient feels much better. She's been able to tolerate soft diet without nausea or vomiting. She denies right sided abdominal pain. Her coagulopathy has been corrected with PT of 13.7 and INR of 1. White blood count 7. LFTs normal except for alkaline phosphatase 188. Other transaminases are normal. Discussed with patient the scheduled Cholecystectomy which will be done tomorrow.] Objective Temp Pulse Resp BP Pulse Ox 96.8 F L 73 16 130/78 92 02/21/18 11:15 02/21/18 12:11 02/21/18 07:54 02/21/18 12:11 02/21/18 07:54 - Additional Data Intake & Output - Last 24 hours: Intake & Output 02/19/18 02/20/18 02/21/18 02/22/18 05:59 05:59 05:59 05:59 Intake Total 108 / 108 100 / 100 1000 / 1000 Output Total 0 / 0 150 / 150 Balance 108 / 108 -50 / -50 990 / 990 Weight 135 lb 8 oz 137 lb 144 lb - General physical appearance no pain, chronically ill - Eyes PERRL, normal ocular movement - ENT normal pinna, normal nares, normal mucosa, no hearing loss, no congestion - Neck no masses, no bruits, trachea midline, no lymphadectomy, no venous distension - Respiratory normal expansion, normal respiratory effort, clear to percussion, clear to auscultation - Cardiovascular Cardiovascular exam: Present: normal rate and rhythm, RRR, +S1. Absent: JVD, tachycardia - Abdomen soft (abdomen is soft and nontender. She does not have right upper quadrant tenderness. She has active bowel sounds.), non tender - Integumentary no rash, no growths, no abnormal pigmentation - Neurologic normal coordination, normal sensation - Musculoskeletal normal gait, normal posture - Psychiatric oriented to time, oriented to person, oriented to place, speech is normal, memory intact - Labs 02/21/18 04:40 02/21/18 04:40 Diabetes panel 02/21/18 Range/Units 04:40 Sodium 137 (133-145) mmol/L Potassium 3.6 (3.3-5.1) mmol/L Chloride 97 (96-108) mmol/L Carbon Dioxide 23 (22-30) mmol/L BUN 5 L (6-20) mg/dl Creatinine 2.4 H (0.6-1.1) mg/dl Glucose 71 (70-105) mg/dL Calcium 8.5 L (8.6-10.4) mg/dl AST 27 (0-37) U/l ALT 11 (0-40) U/l Alkaline Phosphatase 188 H (39-117) U/L Total Protein 6.1 (5.9-8.4) gm/dL Albumin 2.7 L (3.2-5.2) gm/dL Triglycerides 78 (<150) mg/dl Calcium panel 02/21/18 Range/Units 04:40 Calcium 8.5 L (8.6-10.4) mg/dl Phosphorus 2.3 L (2.7-4.5) mg/dL Albumin 2.7 L (3.2-5.2) gm/dL Pituitary panel 02/21/18 Range/Units 04:40 Sodium 137 (133-145) mmol/L Potassium 3.6 (3.3-5.1) mmol/L Chloride 97 (96-108) mmol/L Carbon Dioxide 23 (22-30) mmol/L BUN 5 L (6-20) mg/dl Creatinine 2.4 H (0.6-1.1) mg/dl Glucose 71 (70-105) mg/dL Calcium 8.5 L (8.6-10.4) mg/dl Adrenal panel 02/21/18 Range/Units 04:40 Sodium 137 (133-145) mmol/L Potassium 3.6 (3.3-5.1) mmol/L Chloride 97 (96-108) mmol/L Carbon Dioxide 23 (22-30) mmol/L BUN 5 L (6-20) mg/dl Creatinine 2.4 H (0.6-1.1) mg/dl Glucose 71 (70-105) mg/dL Calcium 8.5 L (8.6-10.4) mg/dl Total Bilirubin 0.6 (0.0-1.0) mg/dL AST 27 (0-37) U/l ALT 11 (0-40) U/l Alkaline Phosphatase 188 H (39-117) U/L Total Protein 6.1 (5.9-8.4) gm/dL Albumin 2.7 L (3.2-5.2) gm/dL Assessment and Plan (1) Intractable nausea and vomiting Status: Acute Assessment and plan: START REGLAN 10 MG TID SCHEDULE FOR CHOLECYSTECTOMY ON THURSDAY Current Visit: Yes (2) Peripheral vascular disease due to secondary diabetes Status: Chronic Current Visit: Yes (3) End stage renal disease on dialysis Status: Chronic Current Visit: Yes (4) Anemia of chronic renal failure Status: Chronic Current Visit: No (5) CAD (coronary artery disease) Status: Chronic Current Visit: No (6) DMII (diabetes mellitus, type 2) Status: Chronic Current Visit: No (7) Depression Status: Chronic Current Visit: No (8) Hypertension, essential Status: Chronic Current Visit: No (9) Cholelithiasis with cholecystitis without obstruction Status: Acute Assessment and plan: Patient is counseled for laparoscopic cholecystectomy to be done tomorrow. Current Visit: Yes - Time Spent With Patient Total time spent is greater than 50% in coordination of care (as documented) at patient's floor/unit and/or counseling patient:
--- NOTE | 2018-02-21 13:43 | Internal Med Progress Note ---
Medical - PN: Subj Patient information: Note initiated : 02/21/18 at 1:18 pm Service Date, if different from initiated Date: [] Patient: Louisa Cohn a 42 y/o F admitted on 02/20/18 for N/V, Constipation. Chief Complaint: [] Interval history: Ms. Cohn is a 42 year old F with multiple medical issues, type II diabetic for last 20 years, right BKA, end-stage renal disease on hemodialysis, recent cardiac bypass surgery, pulmonary embolism in August 2017. Presently on Coumadin. Presents to the emergency room from her dialysis unit. The patient notes she has not been feeling well for the last 6 weeks, the patient has had decreased appetite and has not been eating very well since then. She is also had some nausea and vomiting. Over the last 3 weeks she has noticed that her stool color has changed and it is more darker than before. She has not had much bowel movement for the last 1 week as she has not eaten much. For the last week and a half she has been having intractable nausea and vomiting, she has not been able to eat much at all. She notes that the vomit happens with or without any association with meals, but if she eats something she will definitely threw up. It is biliary in nature, denies any blood in there. She has had intermittent projectile vomiting. The patient denies any abdominal pain, admits to having flulike symptoms just cold all the time. She denies any other acute symptoms. She denies any headache, changes in vision, she has intermittent difficulty in swallowing, she denies any cough shortness of breath or active chest pain. She denies any abdominal pain just some discomfort, denies any bowel bladder complaints, she has had diarrhea in the past, she was being followed by GI and was supposed to have a colonoscopy done. She notes that she never had a colonoscopy done because of her cardiac issue. Today on dialysis at the end of the dialysis. She has had multiple episodes of vomiting which did not respond to Zofran, she is also had significant weight loss over the last 6 weeks and therefore was sent to the emergency room for further evaluation. In the emergency room the patient received 2 doses of IV Reglan with some response. Given her weight loss acuity of symptom the patient is being admitted to the hospital for further evaluation. In the emergency room patient has been afebrile temperature 97.1, heart rate 94 , she is also had few runs of tachycardia. Blood pressure stable 107/68 respirations 18 saturations are 99% on room air. Chest x-ray done is negative for acute infiltrates to my interpretation. Abdominal x-ray is reported as negative. EKG shows sinus tachycardia ST-T wave changes inversions in anterior and lateral leads. Patient had lateral lead changes in the previous EKG anteriorly changes in V2 and V3 are new. Patient is asymptomatic has had cardiac bypass surgery. The patient's labs show mild leukocytosis at 11.4, hemoglobin 12.7, platelets 253. Sodium 132 potassium 4.3 bicarbonate 22. Creatinine 1.1 glucose 129. Alkaline phosphatase 234 and lipase is less than 7. INR is 1.8. 02/19 Patient seen and examined, no acute overnight events, nausea much better. She had a CT scan of the abdomen and pelvis which is negative except for possible gallstones ultrasound was advised which we are trying to get. She had low glucose values and needed dextrose x2. She also had an episode in which there was some slurring of speech glucose value was 58 slurring of speech responded to IV dextrose administration. EGD was not possible today as we do not have a GI physician information assurance engineer. I have consulted Dr. Cohn to help me out with endoscopy this will be planned for tomorrow. At this point in time we are not sure the patient has gallstone disease, she may benefit from a cholecystectomy if she is found to have significant gallstone disease. 02/20 Patient seen and examined, no acute overnight events, no nausea. Patient was able to tolerate her supper last night. Ultrasound of the gallbladder shows acute cholecystitis. EGD done today shows gastritis some healing esophageal scar, and poor motility indicative of gastroparesis. Plan for cholecystectomy on Thursday. Patient will be transferred to inpatient status. 02/21 Patient seen and examined lying comfortably in bed no abdominal pain no nausea no vomiting. Plan for hemodialysis today. Plan for cholecystectomy tomorrow. INR is 1, patient has had a DVT/PE in the last 6 months start on DVT prophylaxis for today. Anticipate surgery and resume anticoagulation as soon as okay from surgery. Pertinent ROS: Denies headache, dizziness Denies chest pain, palpitations Denies cough or shortness of breath Denies abdominal pain, nausea or vomiting. - Constitutional Vitals: Vital Signs Temp Pulse Resp BP Pulse Ox 97.6 F 71 16 128/74 94 10/07/18 12:00 02/21/18 13:05 02/21/18 12:00 02/21/18 13:05 02/21/18 12:00 Period Temp Pulse Resp BP Sys/Brenner Pulse Ox Last 24 Hr 96.4 F-97.9 F 67-87 16-20 107-153/70-100 92-100 Intake and Output 02/20/18 02/21/18 02/21/18 21:59 05:59 13:59 Intake Total 710 / 710 90 / 90 Balance 710 / 710 90 / 90 Weight 144 lb Intake & Output: Intake & Output 02/20/18 02/21/18 02/21/18 21:59 05:59 13:59 Intake Total 710 / 710 90 / 90 Balance 710 / 710 90 / 90 Weight 144 lb Intake: Oral 460 / 460 90 / 90 Blood Product 250 / 250 Other: Meal Dinner Percent of Meal Consumed 25% Exam: Constitutional; Afebrile, cooperative, alert, not in distress. Eyes- No icterus, , No periorbital swelling Ears- Ext ear normal, hearing normal to conversation. Neck- Midline trachea, supple Respiratory system: Air Entry equal on both sides, No crackles or wheezing, no rhonchi. CVS- Rate rhythm regular, S1,S2 heard, no gallop, no rub. Abdomen- Soft nontender abdomen, no organomegaly, no tenderness, no guarding or rigidity, CLINICAL NURSE OCCUPATIONAL MEDICINE- AOOx3, moving all extremities, no gross focal deficit noted. Medical - PN: Obj Da - Labs CBC & Chem 7: 02/21/18 04:40 02/21/18 04:40 Labs: Abnormal Lab Results 02/21/18 02/21/18 02/20/18 04:40 04:40 04:00 WBC RBC 3.85 L Hgb 10.5 L Hct 33.4 L RDW 17.7 H MPV 10.9 H Gran # PT INR Sodium 132 L Chloride 95 L Carbon Dioxide Anion Gap 17.0 H BUN 5 L 4 L Creatinine 2.4 H 1.5 H Glucose Uric Acid 1.8 L Calcium 8.5 L 8.1 L Phosphorus 2.3 L 1.8 L GGT 43 H 40 H Alkaline Phosphatase 188 H 206 H Lactate Dehydrogenase 296 H Troponin T Total Protein 5.4 L Albumin 2.7 L 2.2 L Globulin Albumin/Globulin Ratio 0.8 L 0.7 L Lipase 02/20/18 02/20/18 02/19/18 04:00 04:00 04:05 WBC RBC Hgb 10.9 L Hct 34.8 L RDW 17.5 H MPV 10.7 H Gran # PT 23.0 H INR 2.0 H Sodium Chloride Carbon Dioxide Anion Gap BUN Creatinine Glucose Uric Acid Calcium Phosphorus GGT Alkaline Phosphatase Lactate Dehydrogenase Troponin T 0.07 H* Total Protein Albumin Globulin Albumin/Globulin Ratio Lipase 02/19/18 02/19/18 02/19/18 04:05 04:05 04:05 WBC RBC Hgb 10.9 L Hct 34.5 L RDW 17.3 H MPV 11.5 H Gran # PT 22.6 H INR 2.0 H Sodium Chloride 94 L Carbon Dioxide 21 L Anion Gap 20.0 H BUN Creatinine 1.6 H Glucose Uric Acid 1.5 L Calcium Phosphorus 1.9 L GGT 39 H Alkaline Phosphatase 187 H Lactate Dehydrogenase Troponin T Total Protein 5.6 L Albumin 2.5 L Globulin Albumin/Globulin Ratio 0.8 L Lipase 02/18/18 02/18/18 02/18/18 17:57 17:57 17:15 WBC 11.4 H RBC Hgb Hct RDW 17.8 H MPV 10.6 H Gran # 8.7 H PT INR Sodium 132 L Chloride 89 L Carbon Dioxide Anion Gap 21.0 H BUN Creatinine Glucose 129 H Uric Acid Calcium 8.4 L Phosphorus GGT Alkaline Phosphatase 234 H Lactate Dehydrogenase Troponin T 0.06 H* Total Protein Albumin 2.9 L Globulin 3.8 H Albumin/Globulin Ratio 0.8 L Lipase < 7 L 02/18/18 17:15 WBC RBC Hgb Hct RDW MPV Gran # PT 21.1 H INR 1.8 H Sodium Chloride Carbon Dioxide Anion Gap BUN Creatinine Glucose Uric Acid Calcium Phosphorus GGT Alkaline Phosphatase Lactate Dehydrogenase Troponin T Total Protein Albumin Globulin Albumin/Globulin Ratio Lipase Meds: Medications Acetaminophen (Tylenol) 650 mg PO Q6HP PRN PRN Reason: PAIN/FEVER > 101 Albuterol Sulfate (Ventolin) 2.5 mg NEB Q2HP PRN PRN Reason: Shortness Of Breath Atorvastatin Calcium (Lipitor) 40 mg PO [facility] Last Admin: 02/20/18 20:31 Dose: 40 mg Cinacalcet (Sensipar) 30 mg PO [facility] Last Admin: 02/20/18 20:31 Dose: 30 mg Dextrose (Dextrose 50%) 0 ml IV UD PRN PRN Reason: Hypoglycemia Diagnostic Test (Pha) (Accu-Chek) 1 each FS ACHS [facility] Last Admin: 02/21/18 07:10 Dose: 1 each Glucose (Insta-Glucose) 15 gm PO PRN PRN PRN Reason: Hypoglycemia Heparin Sodium (Porcine) (Heparin) 5,000 unit SQ Q12 [facility] Stop: 02/21/18 21:01 Hydromorphone HCl (Dilaudid) 0.5 mg IV Q2HP PRN PRN Reason: PAIN LEVEL > 6 Ciprofloxacin (Cipro) 400 mg in 200 mls @ 200 mls/hr IV DAILY [facility] Last Admin: 02/21/18 09:13 Dose: 200 mls/hr Sodium Chloride (Sodium Chloride 0.45%) 1,000 mls @ 10 mls/hr IV .Q24H [facility] Last Admin: 02/20/18 13:47 Dose: Not Given Insulin Human Lispro (Humalog) 0 unit SQ [facility]; Protocol Last Admin: 02/21/18 07:10 Dose: Not Given Metoclopramide HCl (Reglan) 10 mg IV [facility] Last Admin: 02/21/18 07:30 Dose: 10 mg Metoprolol Tartrate (Lopressor) 100 mg PO BID [facility] Last Admin: 02/21/18 09:13 Dose: 100 mg Naloxone HCl (Narcan) 0.1 mg IV Q2MIN PRN PRN Reason: Opiate Reversal Ondansetron HCl (Zofran) 4 mg IV Q6HP PRN PRN Reason: Nausea And Vomiting Oxycodone HCl (Roxicodone) 5 mg PO Q4HP PRN PRN Reason: PAIN LEVEL 3-6 Pantoprazole Sodium (Protonix) 40 mg IV BIDAC [facility] Last Admin: 02/21/18 07:30 Dose: 40 mg Promethazine HCl (Phenergan) 12.5 mg IV Q6HP PRN PRN Reason: Nausea And Vomiting Sertraline HCl (Zoloft) 50 mg PO QDAY [facility] Last Admin: 02/21/18 09:12 Dose: 50 mg Sevelamer Carbonate (Renvela) 1,600 mg PO [facility] Last Admin: 10/07/18 12:36 Dose: Not Given Sodium Chloride (Saline Flush) 10 ml IV Q8 [facility] Last Admin: 02/21/18 06:36 Dose: Not Given Venlafaxine HCl (Effexor Xr) 225 mg PO DAILY [facility] Last Admin: 02/21/18 09:12 Dose: 225 mg Medical - PN: A/P - Time Spent With Patient Total time spent is greater than 50% in coordination of care (as documented) at patient's floor/unit and/or counseling patient: - Narrative A/P Narrative: A/P Nausea/ vomiting Dehydration Weight loss Diabetes Mellitus Hypertension Hyperlipidemia Coronary Artery Disease s/p CABG Pulmonary Embolus, within last 6 months END stage renal disease on dialysis Chronic Diarrhea Depression Cholelithiaisis/ Acute cholecystitis Hypoglycemia Plan IV cipro started advance diet , npo for tomorrow, paln for cholecystectomy tomorrow HD planned for tomorrow, lytes stable. mild elevation of troponin due to renal dysfunction Encourage po intake on PPI, reglan , improvement in gi symptosm DVT hep sq today, resume full anticoagulatino as soon as safe from surgical stand point. Full code renal, carb consistent diet. Medical - PN: Qual - Stroke Symptom Onset Unknown: No - VTE Deep Vein Thrombosis/Pulmonary Embolism Present on Admission: Yes
[2018-02-21] MEDS: 0.45 % SODIUM CHLORIDE 1,000 ML IV SCH (14:12)
[2018-02-21] MEDS: HEPARIN 5,000 UNIT/ML VIAL SQ SCH ×2 (15:09→20:58)
--- NOTE | 2018-02-21 16:16 | Nephrology Progress Note ---
Subjective Patient information: Note initiated : 02/21/18 at 4:13 pm Service Date, if different from initiated Date: [] Patient: Louisa Cohn 42 y/o F admitted on 02/20/18 for N/V, Constipation. Chief Complaint: [] Principal diagnosis: cholecystitis,gastritis Interval history: Patient is feeling a little better she had EGD done sat which showed diffuse gastritis, gastroparesis, she is on PPI and reglan (did show response to this) and she is also noted to have cholecystitis and is scheduled for cholecystectomy tomorrow, she is currently on antibiotics as well She has had no nausea, vomiting and is tolerating po intake though noted to eat only 25% of her meals she was dialysed today in anticipation of surgery tomorrow and she tolerated this with no issues she did have 1600cc of next fluid removal she denies SOB, CP she has no edema no other issues reported by the patient Pertinent ROS: as above Objective - Vital Signs Vital signs: Vital Signs Temp Pulse Pulse Resp BP BP BP 02/21/18 14:40 97 F 77 109/62 02/21/18 14:10 80 130/84 02/21/18 13:42 55 L 108/50 02/21/18 13:05 71 128/74 02/21/18 12:40 73 131/82 02/21/18 12:11 73 130/78 02/21/18 12:00 97.6 F 16 130/78 02/21/18 11:40 70 153/99 02/21/18 11:15 96.8 F L 68 148/90 02/21/18 07:54 97.2 F 16 140/88 02/21/18 04:00 97.6 F 67 16 139/87 02/20/18 23:52 97.9 F 74 20 130/77 02/20/18 21:15 151/82 02/20/18 20:00 97.7 F 87 16 107/70 Pulse Ox 02/21/18 14:40 02/21/18 14:10 02/21/18 13:42 02/21/18 13:05 02/21/18 12:40 02/21/18 12:11 02/21/18 12:00 94 02/21/18 11:40 02/21/18 11:15 02/21/18 07:54 92 02/21/18 04:00 96 02/20/18 23:52 95 02/20/18 21:15 02/20/18 20:00 96 Intake and Output 02/21/18 02/21/18 02/21/18 05:59 13:59 21:59 Intake Total 90 / 90 Output Total 800 / 800 Balance 90 / 90 -800 / -800 Intake: Oral 90 / 90 Output: Hemodialysis UF 800 / 800 Intake & Output: Intake & Output 02/21/18 02/21/18 02/21/18 05:59 13:59 21:59 Intake Total 90 / 90 Output Total 800 / 800 Balance 90 / 90 -800 / -800 Intake: Oral 90 / 90 Output: Hemodialysis UF 800 / 800 - General Appearance General appearance: appears started age, frail EENT: mucous membranes moist Neck: no JVD Respiratory: clear Cardiology: no edema, normal S1, normal S2 Gastrointestinal: no tenderness, no guarding Integumentary: warm and dry Neurologic: alert and oriented x3 Musculoskeletal: no erythema, no cyanosis Psychiatric: mood/affect appropriate - Lab 02/21/18 04:40 02/21/18 04:40 Most recent lab results Calcium 8.5 mg/dl (8.6-10.4) L 02/21/18 04:40 Phosphorus 2.3 mg/dL (2.7-4.5) L 02/21/18 04:40 Magnesium 1.7 mg/dL (1.6-2.5) 02/21/18 04:40 Assessment and Plan (1) Intractable nausea and vomiting multiple issues with EGD showing gastritis, gastroparesis, also has cholecystitis been treated for all of these with some improvement in symptoms Status: Acute Qualifiers: Vomiting type: unspecified Qualified Code(s): R11.2 - Nausea with vomiting , unspecified (2) End stage renal disease on dialysis HD done today for 3.5 hrs, using 3K/2.5Ca dialysate, [id number], QD 800ML/MIN AND uf GOAL OF 1600CC achieved, no issues reported with HD Anemia of CKD Hb at goal secondary hyperparathyroidism: normal corrected calcium, low phos, if remains low may correct perioperatively ct cinacalcet malnutrition: on IDPN during dialysis hope oral intake will improve with intervention mentioned above Will follow along Appreciate surgery and hospitalist help in managing this pt Status: Chronic
[2018-02-21] MEDS: CINACALCET 30 MG TABLET PO SCH (20:57)
[2018-02-21] MEDS: ATORVASTATIN 20 MG TABLET PO SCH (20:57)
[2018-02-22 05:47] LABS: Basophils # (Auto) 0.1 K/mcL (0.0-0.3); Basophils % (Auto) 0.9 % (0.0-2.0); Eosinophils # (Auto) 0.2 K/mcL (0.0-0.7); Eosinophils % (Auto) 2.6 % (0.0-7.0); Granulocytes % (Auto) 53.7 % (38.0-78.0); Lymphocytes # (Auto) 2.2 K/mcL (1.5-4.8); Lymphocytes % (Auto) 33.2 % (15.5-49.0); Mean Corpuscular HGB Conc 31.6 g/dL (31.0-36.0); Mean Corpuscular Hemoglobin 27.2 pg (26.0-34.0); Monocytes # (Auto) 0.6 K/mcL (0.1-0.9); Monocytes % (Auto) 9.6 % (1.0-12.0); Platelet Count 149 K/mcL (140-440); RBC 3.79 M/mcL (4.00-5.20); Red Cell Distribution Width 17.3 % (11.5-14.5)
[2018-02-22 06:05] LABS: ALT/SGPT 7 U/l (0-40); Albumin 2.3 gm/dL (3.2-5.2); Albumin/Globulin Ratio 0.7 (1.0-2.3); Alkaline Phosphatase 162 U/L (39-117); Bilirubin,Direct < 0.2 mg/dL (0.0-0.3); Blood Urea Nitrogen 12 mg/dl (6-20); Gamma Glutamyl Transpeptidase 38 U/L (5-36)
[2018-02-22] MEDS: 0.9 % SODIUM CHLORIDE 10 ML SYRINGE IV SCH ×2 (06:33→12:32)
[2018-02-22] MEDS: METOCLOPRAMIDE 10 MG/2 ML VIAL IV SCH ×4 (07:30→20:27)
[2018-02-22] MEDS: PANTOPRAZOLE 40 MG VIAL IV SCH ×2 (07:30→17:12)
[2018-02-22] MEDS: INSULIN LISPRO 1 UNIT/0.01 ML UNIT SQ SCH ×4 (07:31→20:31)
[2018-02-22] MEDS: SEVELAMER 800 MG TABLET PO SCH (07:35)
--- NOTE | 2018-02-22 10:06 | Internal Med Progress Note ---
Medical - PN: Subj Patient information: Note initiated : 02/22/18 at 10:04 am Service Date, if different from initiated Date: [] Patient: Louisa Cohn a 42 y/o F admitted on 02/20/18 for N/V, Constipation. Chief Complaint: [] Interval history: Ms. Cohn is a 42 year old F with multiple medical issues, type II diabetic for last 20 years, right BKA, end-stage renal disease on hemodialysis, recent cardiac bypass surgery, pulmonary embolism in August 2017. Presently on Coumadin. Presents to the emergency room from her dialysis unit. The patient notes she has not been feeling well for the last 6 weeks, the patient has had decreased appetite and has not been eating very well since then. She is also had some nausea and vomiting. Over the last 3 weeks she has noticed that her stool color has changed and it is more darker than before. She has not had much bowel movement for the last 1 week as she has not eaten much. For the last week and a half she has been having intractable nausea and vomiting, she has not been able to eat much at all. She notes that the vomit happens with or without any association with meals, but if she eats something she will definitely threw up. It is biliary in nature, denies any blood in there. She has had intermittent projectile vomiting. The patient denies any abdominal pain, admits to having flulike symptoms just cold all the time. She denies any other acute symptoms. She denies any headache, changes in vision, she has intermittent difficulty in swallowing, she denies any cough shortness of breath or active chest pain. She denies any abdominal pain just some discomfort, denies any bowel bladder complaints, she has had diarrhea in the past, she was being followed by GI and was supposed to have a colonoscopy done. She notes that she never had a colonoscopy done because of her cardiac issue. Today on dialysis at the end of the dialysis. She has had multiple episodes of vomiting which did not respond to Zofran, she is also had significant weight loss over the last 6 weeks and therefore was sent to the emergency room for further evaluation. In the emergency room the patient received 2 doses of IV Reglan with some response. Given her weight loss acuity of symptom the patient is being admitted to the hospital for further evaluation. In the emergency room patient has been afebrile temperature 97.1, heart rate 94 , she is also had few runs of tachycardia. Blood pressure stable 107/68 respirations 18 saturations are 99% on room air. Chest x-ray done is negative for acute infiltrates to my interpretation. Abdominal x-ray is reported as negative. EKG shows sinus tachycardia ST-T wave changes inversions in anterior and lateral leads. Patient had lateral lead changes in the previous EKG anteriorly changes in V2 and V3 are new. Patient is asymptomatic has had cardiac bypass surgery. The patient's labs show mild leukocytosis at 11.4, hemoglobin 12.7, platelets 253. Sodium 132 potassium 4.3 bicarbonate 22. Creatinine 1.1 glucose 129. Alkaline phosphatase 234 and lipase is less than 7. INR is 1.8. 02/19 Patient seen and examined, no acute overnight events, nausea much better. She had a CT scan of the abdomen and pelvis which is negative except for possible gallstones ultrasound was advised which we are trying to get. She had low glucose values and needed dextrose x2. She also had an episode in which there was some slurring of speech glucose value was 58 slurring of speech responded to IV dextrose administration. EGD was not possible today as we do not have a GI physician erp consultant. I have consulted Dr. Cohn to help me out with endoscopy this will be planned for tomorrow. At this point in time we are not sure the patient has gallstone disease, she may benefit from a cholecystectomy if she is found to have significant gallstone disease. 02/20 Patient seen and examined, no acute overnight events, no nausea. Patient was able to tolerate her supper last night. Ultrasound of the gallbladder shows acute cholecystitis. EGD done today shows gastritis some healing esophageal scar, and poor motility indicative of gastroparesis. Plan for cholecystectomy on Thursday. Patient will be transferred to inpatient status. 02/21 Patient seen and examined lying comfortably in bed no abdominal pain no nausea no vomiting. Plan for hemodialysis today. Plan for cholecystectomy tomorrow. INR is 1, patient has had a DVT/PE in the last 6 months start on DVT prophylaxis for today. Anticipate surgery and resume anticoagulation as soon as okay from surgery. 02/22 Patient seen and examined, lying in bed no abdominal pain no nausea no vomiting was able to have dinner last night. Plan for cholecystectomy today at 1 PM. Will resume anticoagulation as soon as surgery of case. Labs stable Pertinent ROS: Denies headache, dizziness Denies chest pain, palpitations Denies cough or shortness of breath Denies abdominal pain, nausea or vomiting. - Constitutional Vitals: Vital Signs Temp Pulse Resp BP Pulse Ox 97.9 F 65 14 130/84 100 02/22/18 06:46 02/22/18 04:00 02/22/18 06:46 02/22/18 06:46 02/22/18 06:46 Period Temp Pulse Resp BP Sys/Brenner Pulse Ox Last 24 Hr 96.8 F-97.9 F 55-80 14-16 101-153/50-99 94-100 Intake and Output 02/21/18 02/22/18 02/22/18 21:59 05:59 13:59 Intake Total 360 / 360 180 / 180 Output Total 800 / 800 0 / 0 Balance -440 / -440 180 / 180 Weight 139 lb 8 oz Intake & Output: Intake & Output 02/21/18 02/22/18 02/22/18 21:59 05:59 13:59 Intake Total 360 / 360 180 / 180 Output Total 800 / 800 0 / 0 Balance -440 / -440 180 / 180 Weight 139 lb 8 oz Intake: Oral 360 / 360 180 / 180 Output: Void Amount 0 / 0 Hemodialysis UF 800 / 800 Other: Meal Dinner Percent of Meal Consumed Refused Exam: Constitutional; Afebrile, cooperative, alert, not in distress. Eyes- No icterus, , No periorbital swelling Ears- Ext ear normal, hearing normal to conversation. Neck- Midline trachea, supple Respiratory system: Air Entry equal on both sides, No crackles or wheezing, no rhonchi. CVS- Rate rhythm regular, S1,S2 heard, no gallop, no rub. 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 Medical - PN: Obj Da - Labs CBC & Chem 7: 02/22/18 04:10 02/22/18 04:10 Labs: Abnormal Lab Results 02/22/18 02/22/18 02/21/18 04:10 04:10 04:40 RBC 3.79 L Hgb 10.3 L Hct 32.6 L RDW 17.3 H MPV 11.4 H PT INR Sodium 131 L Chloride 95 L Anion Gap 17.0 H BUN 5 L Creatinine 1.4 H 2.4 H Uric Acid 1.0 L Calcium 7.7 L 8.5 L Phosphorus 0.9 L 2.3 L GGT 38 H 43 H Alkaline Phosphatase 162 H 188 H Lactate Dehydrogenase 296 H Total Protein 5.4 L Albumin 2.3 L 2.7 L Albumin/Globulin Ratio 0.7 L 0.8 L 02/21/18 02/20/18 02/20/18 04:40 04:00 04:00 RBC 3.85 L Hgb 10.5 L Hct 33.4 L RDW 17.7 H MPV 10.9 H PT 23.0 H INR 2.0 H Sodium 132 L Chloride 95 L Anion Gap BUN 4 L Creatinine 1.5 H Uric Acid 1.8 L Calcium 8.1 L Phosphorus 1.8 L GGT 40 H Alkaline Phosphatase 206 H Lactate Dehydrogenase Total Protein 5.4 L Albumin 2.2 L Albumin/Globulin Ratio 0.7 L 02/20/18 04:00 RBC Hgb 10.9 L Hct 34.8 L RDW 17.5 H MPV 10.7 H PT INR Sodium Chloride Anion Gap BUN Creatinine Uric Acid Calcium Phosphorus GGT Alkaline Phosphatase Lactate Dehydrogenase Total Protein Albumin Albumin/Globulin Ratio Meds: Medications Acetaminophen (Tylenol) 650 mg PO Q6HP PRN PRN Reason: PAIN/FEVER > 101 Albuterol Sulfate (Ventolin) 2.5 mg NEB Q2HP PRN PRN Reason: Shortness Of Breath Atorvastatin Calcium (Lipitor) 40 mg PO HS [facility] Last Admin: 02/21/18 20:57 Dose: 40 mg Cinacalcet (Sensipar) 30 mg PO HS [facility] Last Admin: 02/21/18 20:57 Dose: 30 mg Dextrose (Dextrose 50%) 0 ml IV UD PRN PRN Reason: Hypoglycemia Diagnostic Test (Pha) (Accu-Chek) 1 each FS ACHS [facility] Last Admin: 02/22/18 07:30 Dose: 1 each Glucose (Insta-Glucose) 15 gm PO PRN PRN PRN Reason: Hypoglycemia Hydromorphone HCl (Dilaudid) 0.5 mg IV Q2HP PRN PRN Reason: PAIN LEVEL > 6 Ciprofloxacin (Cipro) 400 mg in 200 mls @ 200 mls/hr IV DAILY [facility] Last Admin: 02/21/18 09:13 Dose: 200 mls/hr Sodium Chloride (Sodium Chloride 0.45%) 1,000 mls @ 10 mls/hr IV .Q24H [facility] Last Admin: 02/21/18 14:12 Dose: Not Given Insulin Human Lispro (Humalog) 0 unit SQ [facility]; Protocol Last Admin: 02/22/18 07:31 Dose: Not Given Metoclopramide HCl (Reglan) 10 mg IV [facility] Last Admin: 02/22/18 07:30 Dose: 10 mg Metoprolol Tartrate (Lopressor) 100 mg PO BID [facility] Last Admin: 02/21/18 20:57 Dose: 100 mg Naloxone HCl (Narcan) 0.1 mg IV Q2MIN PRN PRN Reason: Opiate Reversal Ondansetron HCl (Zofran) 4 mg IV Q6HP PRN PRN Reason: Nausea And Vomiting Oxycodone HCl (Roxicodone) 5 mg PO Q4HP PRN PRN Reason: PAIN LEVEL 3-6 Pantoprazole Sodium (Protonix) 40 mg IV BIDAC [facility] Last Admin: 02/22/18 07:30 Dose: 40 mg Promethazine HCl (Phenergan) 12.5 mg IV Q6HP PRN PRN Reason: Nausea And Vomiting Sertraline HCl (Zoloft) 50 mg PO QDAY [facility] Last Admin: 02/21/18 09:12 Dose: 50 mg Sevelamer Carbonate (Renvela) 1,600 mg PO TIDCC [facility] Last Admin: 02/22/18 07:35 Dose: Not Given Sodium Chloride (Saline Flush) 10 ml IV Q8 [facility] Last Admin: 02/22/18 06:33 Dose: Not Given Venlafaxine HCl (Effexor Xr) 225 mg PO DAILY [facility] Last Admin: 02/21/18 09:12 Dose: 225 mg Medical - PN: A/P - Time Spent With Patient Total time spent is greater than 50% in coordination of care (as documented) at patient's floor/unit and/or counseling patient: - Narrative A/P Narrative: A/P Nausea/ vomiting Dehydration Weight loss Diabetes Mellitus Hypertension Hyperlipidemia Coronary Artery Disease s/p CABG Pulmonary Embolus, within last 6 months END stage renal disease on dialysis Chronic Diarrhea Depression Cholelithiaisis/ Acute cholecystitis Hypoglycemia Plan IV cipro paln for cholecystectomy today INR 1.0, resume anticoagulation as soon as ok from surgery, recent DVT/PE mild elevation of troponin due to renal dysfunction Pt [facility], will change fluids to d10, given low glucose is 90 and pt has had hypoglycemia symptoms when npo this admit. on PPI, reglan , improvement in gi symptoms DVT hep sq today, resume full anticoagulating as soon as safe from surgical stand point. Full code NPO Medical - PN: Qual - Stroke Symptom Onset Unknown: No - VTE Deep Vein Thrombosis/Pulmonary Embolism Present on Admission: Yes
[2018-02-22] MEDS ORDERED: DEXTROSE 10 % IN WATER 1,000 ML IV SCH ×2 (10:15→16:00)
[2018-02-22] MEDS: CIPROFLOXACIN 400 MG/200 ML BAG IV SCH (10:40)
[2018-02-22] MEDS: METOPROLOL TARTRATE 50 MG TABLET PO SCH ×2 (10:40→20:28)
[2018-02-22] MEDS ORDERED: POTASSIUM PHOSPHATE 40 MEQ in DEXTROSE 5% IN WATER 500 ML IV ONE ×2 (11:00→17:00)
[2018-02-22] MEDS: SERTRALINE 50 MG TABLET PO SCH (12:04)
[2018-02-22] MEDS: VENLAFAXINE 75 MG CAP.XL.24H PO SCH (12:04)
[2018-02-22] MEDS ORDERED: ONDANSETRON 4 MG/2 ML VIAL IV ONE (13:05)
[2018-02-22] MEDS ORDERED: ePHEDrine 50 MG/ML AMPUL IV ONE (13:05)
[2018-02-22] MEDS ORDERED: fentaNYL 100 MCG/2 ML VIAL IV ONE (13:05)
[2018-02-22] MEDS ORDERED: SUCCINYLCHOLINE 20 MG/ML ML IV ONE (13:05)
[2018-02-22] MEDS ORDERED: METOCLOPRAMIDE 10 MG/2 ML VIAL IV ONE (13:05)
[2018-02-22] MEDS ORDERED: MIDAZOLAM 5 MG/5 ML VIAL IV ONE (13:05)
[2018-02-22] MEDS ORDERED: DEXAMETHASONE 10 MG/ML VIAL IV ONE (13:05)
[2018-02-22] MEDS ORDERED: GLYCOPYRROLATE 0.2 MG/ML VIAL IV ONE (13:05)
[2018-02-22] MEDS ORDERED: NEOSTIGMINE 1 MG/ML VIAL IV ONE (13:05)
[2018-02-22] MEDS ORDERED: LIDOCAINE HCL/PF 100 MG/5 ML SYRINGE IV ONE (13:05)
[2018-02-22] MEDS ORDERED: PHENYLEPHRINE 10 MG/ML VIAL IV ONE (13:05)
[2018-02-22] MEDS ORDERED: ROCURONIUM 10 MG/ML ML IV ONE (13:05)
[2018-02-22] MEDS ORDERED: FAMOTIDINE/PF 20 MG/2 ML VIAL IV ONE (13:05)
[2018-02-22] MEDS ORDERED: PROPOFOL 200 MG/20 ML VIAL IV ONE (13:05)
--- NOTE | 2018-02-22 13:27 | Surgical Pathology Report ---
HISTOLOGY SPECIMEN MICROSCOPIC DIAGNOSIS AMENDED REPORT TO ADD DIAGNOSIS SPECIMEN A - FEBRUARY 23, 2018 SPECIMEN A - STOMACH, ANTRUM, BIOPSY: -- MILD CHRONIC GASTRITIS. -- NO HELICOBACTER TYPE ORGANISMS IDENTIFIED (ALCIAN YELLOW STAIN WITH ADEQUATE TECHNICAL CONTROL). SPECIMEN B - STOMACH, POLYP, BIOPSY: -- GASTRIC MUCOSA WITH FEATURES CONSISTENT WITH FUNDIC GLAND POLYP. SPECIMEN C - ESOPHAGUS, GE JUNCTION, BIOPSY: -- MILD ACUTE ESOPHAGITIS WITH ULCERATION AND INFLAMMATORY DEBRIS. -- NO FUNGAL ORGANISMS IDENTIFIED (PAS STAIN WITH ADEQUATE TECHNICAL CONTROL). (RLF:djf) CLINICAL HISTORY Recurrent nausea and vomiting. PROCEDURAL IMPRESSION Gastroparesis; diffuse gastritis; fundic gland polyps; distal esophageal erosion. GROSS DESCRIPTION Specimen A: Received in formalin labeled antrum biopsy, are two fragments of solomon-pink tissue measuring 0.6 and 0.2 cm. Entirely submitted in one cassette. Specimen B: Received in formalin labeled fundic gland biopsy, are multiple solomon-pink soft tissue fragments ranging in size from 0.1 to 0.6 cm. Entirely submitted in one cassette. Specimen C: Received in formalin labeled GE junction biopsy, are multiple fragments of solomon-pink soft tissue ranging in size from 0.1 to 0.4 cm. Entirely submitted in one cassette. (EBD:adj) Electronically Signed by: Krystle Hill M.D.
[2018-02-22] MEDS ORDERED: BENZOCAINE/MENTHOL 1 LOZENGE PO PRN (13:30)
[2018-02-22] MEDS ORDERED: LACTATED RINGERS 1,000 ML IV SCH (13:30)
[2018-02-22] MEDS ORDERED: fentaNYL 100 MCG/2 ML VIAL IV PRN (13:30)
[2018-02-22] MEDS ORDERED: IPRATROPIUM/ALBUTEROL 3 ML AMPUL.NEB NEB PRN (13:30)
[2018-02-22] MEDS ORDERED: FLUMAZENIL 0.1 MG/ML ML IV PRN (13:30)
[2018-02-22] MEDS ORDERED: ONDANSETRON 4 MG/2 ML VIAL IV PRN ×2 (13:30→16:00)
[2018-02-22] MEDS ORDERED: LACTATED RINGERS 250 ML IV PRN (13:30)
[2018-02-22] MEDS ORDERED: NALOXONE HCL 0.4 MG/ML VIAL IV PRN ×2 (13:30→16:00)
[2018-02-22] MEDS ORDERED: ACETAMINOPHEN 900 MG/90 ML BOTTLE IV ONE (13:30)
[2018-02-22] MEDS ORDERED: MEPERIDINE 25 MG/ML SYRINGE IV PRN (13:30)
--- NOTE | 2018-02-22 14:04 | Brief Operative Note ---
Date of procedure: 02/22/18 Pre-op diagnosis: CHOLELITHIASIS WITH CHOLECYSTITIS Post-op diagnosis: other (CHOLELITHIASIS WITH CHOLECYSTITIS) Procedure: LAPAROSCOPIC CHOLECYSTITIS Grafts/Implants: No Anesthesia: GETA Findings: EDEMATOUS ,DILATED GALLBLADDER WITH LARGE STONES Complications: none Surgeon: Celia Cohn Estimated blood loss (cc): 10 Specimens Removed/Pathology: other (GALLBLADDER) Condition: stable Disposition: PACU
[2018-02-22] MEDS ORDERED: DEXTROSE 31 GM ORAL.SUSP PO PRN (16:00)
[2018-02-22] MEDS ORDERED: ALBUTEROL SULFATE 2.5 MG/3 ML NEBULIZER NEB PRN (16:00)
[2018-02-22] MEDS ORDERED: DEXTROSE 50% 50 ML VIAL IV PRN (16:00)
[2018-02-22] MEDS ORDERED: ACETAMINOPHEN 325 MG TABLET PO PRN (16:00)
[2018-02-22] MEDS ORDERED: oxyCODONE HCL 5 MG TABLET PO PRN (16:00)
[2018-02-22] MEDS ORDERED: PROMETHAZINE 25 MG/ML VIAL IV PRN (16:00)
[2018-02-22] MEDS ORDERED: HYDROmorphone 2 MG/ML VIAL IV PRN (16:00)
[2018-02-22 16:15] LABS: Blood Urea Nitrogen 12 mg/dl (6-20)
--- NOTE | 2018-02-22 20:17 | Nephrology Progress Note ---
Subjective Patient information: Note initiated : 02/22/18 at 8:15 pm Service Date, if different from initiated Date: [] Patient: Louisa Cohn 42 y/o F admitted on 02/20/18 for N/V, Constipation. Chief Complaint: [] Principal diagnosis: cholecystitis,gastritis Interval history: Patient had laprascopic cholecystitis today she was noted to have hypoventilation and some drowsiness post procedure which is slowly improving she denied SOB, CP no edema noted to have very low phos, binders held, receiving IV phos replacement with close monitoring Pertinent ROS: as above Objective - Vital Signs Vital signs: Vital Signs Temp Pulse Pulse Resp BP BP BP 02/22/18 20:01 97.4 F 17 136/86 02/22/18 19:01 18 136/100 02/22/18 18:01 65 16 133/86 02/22/18 17:41 18 02/22/18 17:31 97.2 F 19 138/96 02/22/18 17:16 18 136/100 02/22/18 17:01 16 127/80 02/22/18 16:46 17 134/85 02/22/18 16:31 17 141/96 02/22/18 16:16 19 138/93 02/22/18 16:06 96.6 F L 20 150/103 02/22/18 15:44 97.6 F 65 14 134/76 02/22/18 15:38 97.7 F 66 19 134/86 02/22/18 15:24 98 F 67 18 133/75 02/22/18 15:09 98 F 72 20 147/100 02/22/18 15:00 75 13 02/22/18 14:56 97.8 F 72 12 157/90 02/22/18 14:46 97.6 F 73 17 161/97 02/22/18 14:41 85 11 L 167/100 02/22/18 14:36 88 12 161/97 02/22/18 14:31 98 F 85 15 193/108 02/22/18 14:26 88 16 175/108 02/22/18 14:21 73 193/116 02/22/18 14:20 78 14 02/22/18 14:16 98.1 F 89 14 184/97 02/22/18 12:24 96.9 F L 16 118/82 02/22/18 06:46 97.9 F 14 130/84 02/22/18 04:00 97.6 F 65 14 113/67 02/21/18 23:58 97.7 F 65 14 139/72 Pulse Ox 02/22/18 20:01 100 02/22/18 19:01 02/22/18 18:01 95 02/22/18 17:41 98 02/22/18 17:31 02/22/18 17:16 97 02/22/18 17:01 02/22/18 16:46 95 02/22/18 16:31 94 02/22/18 16:16 95 02/22/18 16:06 96 02/22/18 15:44 100 02/22/18 15:38 100 02/22/18 15:24 100 02/22/18 15:09 99 02/22/18 15:00 98 02/22/18 14:56 02/22/18 14:46 99 02/22/18 14:41 98 02/22/18 14:36 98 02/22/18 14:31 95 02/22/18 14:26 96 02/22/18 14:21 100 02/22/18 14:20 96 02/22/18 14:16 98 02/22/18 12:24 100 02/22/18 06:46 100 02/22/18 04:00 97 02/21/18 23:58 100 Intake and Output 02/22/18 02/22/18 02/22/18 05:59 13:59 21:59 Intake Total 180 / 180 200 / 200 90 / 90 Output Total 0 / 0 Balance 180 / 180 200 / 200 90 / 90 Intake: IV 200 / 200 90 / 90 Oral 180 / 180 Output: Void Amount 0 / 0 Other: Weight 148 lb 12.8 oz Patient Weight 02/23/18 05:59 Weight 148 lb 12.8 oz Intake & Output: Intake & Output 02/22/18 02/22/18 02/22/18 05:59 13:59 21:59 Intake Total 180 / 180 200 / 200 90 / 90 Output Total 0 / 0 Balance 180 / 180 200 / 200 90 / 90 Weight 148 lb 12.8 oz Intake: IV 200 / 200 90 / 90 Oral 180 / 180 Output: Void Amount 0 / 0 - General Appearance General appearance: appears started age, frail EENT: mucous membranes moist Neck: no JVD Respiratory: clear Cardiology: no rub, normal S1, normal S2 Gastrointestinal: no tenderness, no guarding Integumentary: warm and dry Neurologic: alert and oriented x3 (when seen this am and then was drowsy but responsive post op) Musculoskeletal: no erythema, no cyanosis Psychiatric: mood/affect appropriate - Lab 02/22/18 04:10 02/22/18 15:12 Most recent lab results Calcium 8.0 mg/dl (8.6-10.4) L 02/22/18 15:12 Phosphorus 1.3 mg/dL (2.7-4.5) L 02/22/18 15:12 Magnesium 1.6 mg/dL (1.6-2.5) 02/22/18 04:10 Assessment and Plan (1) Intractable nausea and vomiting multiple issues with EGD showing gastritis, gastroparesis, also has cholecystitis, s/p cholecystectomy today been treated for all of these with some improvement in symptoms Status: Acute Qualifiers: Vomiting type: unspecified Qualified Code(s): R11.2 - Nausea with vomiting , unspecified (2) End stage renal disease on dialysis no indication for HD today, will plan for the same with IDPN tomorrow Anemia of CKD Hb at goal secondary hyperparathyroidism: normal corrected calcium, low phos (from poor po intake, binders held, receiving IV replacement, monitor and correct as needed) malnutrition: on IDPN during dialysis hope oral intake will improve with interventions Will follow along Appreciate surgery and hospitalist help in managing this pt Status: Chronic
[2018-02-22] MEDS ORDERED: CINACALCET 30 MG TABLET PO SCH (21:00)
[2018-02-22] MEDS ORDERED: ATORVASTATIN 20 MG TABLET PO SCH (21:00)
[2018-02-22] MEDS ORDERED: 0.9 % SODIUM CHLORIDE 10 ML SYRINGE IV SCH (22:00)
[2018-02-23] MEDS ORDERED: HEPARIN 5,000 UNIT/ML VIAL SQ SCH (06:00)
[2018-02-23 06:14] LABS: Basophils # (Auto) 0 K/mcL (0.0-0.3); Basophils % (Auto) 0.3 % (0.0-2.0); Eosinophils # (Auto) 0 K/mcL (0.0-0.7); Eosinophils % (Auto) 0.1 % (0.0-7.0); Granulocytes % (Auto) 74.3 % (38.0-78.0); Lymphocytes # (Auto) 0.8 K/mcL (1.5-4.8); Lymphocytes % (Auto) 16.9 % (15.5-49.0); Mean Cell Volume 87.3 fL (80.0-100.0); Mean Corpuscular HGB Conc 31.3 g/dL (31.0-36.0); Mean Corpuscular Hemoglobin 27.4 pg (26.0-34.0); Monocytes # (Auto) 0.4 K/mcL (0.1-0.9); Monocytes % (Auto) 8.4 % (1.0-12.0); Platelet Count 166 K/mcL (140-440); Red Cell Distribution Width 17.5 % (11.5-14.5)
[2018-02-23 06:46] LABS: ALT/SGPT 11 U/l (0-40); Albumin 2.2 gm/dL (3.2-5.2); Albumin/Globulin Ratio 0.6 (1.0-2.3); Alkaline Phosphatase 181 U/L (39-117); Bilirubin,Direct < 0.2 mg/dL (0.0-0.3); Blood Urea Nitrogen 15 mg/dl (6-20); Gamma Glutamyl Transpeptidase 39 U/L (5-36); Uric Acid 1.6 mg/dL (2.5-8.0)
[2018-02-23] MEDS ORDERED: MAGNESIUM SULFATE 2 GM/50 ML BAG IV ONE (07:50)
[2018-02-23] MEDS: INSULIN LISPRO 1 UNIT/0.01 ML UNIT SQ SCH ×4 (08:13→20:16)
[2018-02-23] MEDS: METOCLOPRAMIDE 10 MG/2 ML VIAL IV SCH ×4 (08:14→20:15)
[2018-02-23] MEDS: PANTOPRAZOLE 40 MG VIAL IV SCH ×2 (08:14→17:08)
[2018-02-23] MEDS: 0.9 % SODIUM CHLORIDE 10 ML SYRINGE IV SCH (08:18)
[2018-02-23] MEDS ORDERED: VENLAFAXINE 75 MG CAP.XL.24H PO SCH (09:00)
[2018-02-23] MEDS ORDERED: SERTRALINE 50 MG TABLET PO SCH (09:00)
[2018-02-23] MEDS ORDERED: CIPROFLOXACIN 400 MG/200 ML BAG IV SCH (09:00)
[2018-02-23] MEDS ORDERED: ENOXAPARIN 30 MG/0.3 ML SYRINGE SQ SCH (09:00)
[2018-02-23] MEDS ORDERED: APIXABAN 2.5 MG TABLET PO SCH (09:00)
[2018-02-23] MEDS ORDERED: PROMETHAZINE 25 MG/ML VIAL IV PRN (09:11)
[2018-02-23] MEDS ORDERED: ALBUTEROL SULFATE 2.5 MG/3 ML NEBULIZER NEB PRN (09:11)
[2018-02-23] MEDS ORDERED: HYDROmorphone 2 MG/ML VIAL IV PRN (09:11)
[2018-02-23] MEDS ORDERED: DEXTROSE 50% 50 ML VIAL IV PRN (09:11)
[2018-02-23] MEDS ORDERED: oxyCODONE HCL 5 MG TABLET PO PRN (09:11)
[2018-02-23] MEDS ORDERED: DEXTROSE 31 GM ORAL.SUSP PO PRN (09:11)
[2018-02-23] MEDS ORDERED: ONDANSETRON 4 MG/2 ML VIAL IV PRN (09:11)
[2018-02-23] MEDS ORDERED: NALOXONE HCL 0.4 MG/ML VIAL IV PRN (09:11)
[2018-02-23] MEDS ORDERED: ACETAMINOPHEN 325 MG TABLET PO PRN (09:11)
[2018-02-23] MEDS: VENLAFAXINE 75 MG CAP.XL.24H PO SCH (10:41)
[2018-02-23] MEDS: METOPROLOL TARTRATE 50 MG TABLET PO SCH ×3 (10:42→22:04)
[2018-02-23] MEDS: APIXABAN 2.5 MG TABLET PO SCH ×2 (10:42→22:04)
[2018-02-23] MEDS: SERTRALINE 50 MG TABLET PO SCH (10:42)
--- NOTE | 2018-02-23 11:39 | Surgical Pathology Report ---
HISTOLOGY SPECIMEN MICROSCOPIC DIAGNOSIS GALLBLADDER, CHOLECYSTECTOMY: -- CHRONIC CHOLECYSTITIS WITH CHOLELITHIASIS. (RLF:pasquale) PROCEDURAL IMPRESSION Cholelithiasis with cholecystitis without obstruction. GROSS DESCRIPTION Received in formalin labeled with the patient information and designated as gallbladder, is an 11.1 x 3.4 x 3.5 cm pink-solomon gallbladder specimen. The serosa is mostly smooth and glistening with approximately 40% roughened and brown-solomon. There is a single metal clamp present that is on the cystic duct. The mucosa is velvety pink-solomon. No lesions or masses identified. Striations are present on the mucosa. There are multiple multifaceted black-solomon stones found within the gallbladder ranging in size from less than 0.1 to 1.1 cm. The wall is up to 0.4 cm thick. (KGW:pasquale) Electronically Signed by: Krystle Hill M.D.
--- NOTE | 2018-02-23 12:10 | Internal Med Progress Note ---
Medical - PN: Subj Patient information: Note initiated : 02/23/18 at 12:07 pm Service Date, if different from initiated Date: [] Patient: Louisa Cohn a 42 y/o F admitted on 02/20/18 for N/V, Constipation. Chief Complaint: [] Interval history: Ms. Cohn is a 42 year old F with multiple medical issues, type II diabetic for last 20 years, right BKA, end-stage renal disease on hemodialysis, recent cardiac bypass surgery, pulmonary embolism in August 2017. Presently on Coumadin. Presents to the emergency room from her dialysis unit. The patient notes she has not been feeling well for the last 6 weeks, the patient has had decreased appetite and has not been eating very well since then. She is also had some nausea and vomiting. Over the last 3 weeks she has noticed that her stool color has changed and it is more darker than before. She has not had much bowel movement for the last 1 week as she has not eaten much. For the last week and a half she has been having intractable nausea and vomiting, she has not been able to eat much at all. She notes that the vomit happens with or without any association with meals, but if she eats something she will definitely threw up. It is biliary in nature, denies any blood in there. She has had intermittent projectile vomiting. The patient denies any abdominal pain, admits to having flulike symptoms just cold all the time. She denies any other acute symptoms. She denies any headache, changes in vision, she has intermittent difficulty in swallowing, she denies any cough shortness of breath or active chest pain. She denies any abdominal pain just some discomfort, denies any bowel bladder complaints, she has had diarrhea in the past, she was being followed by GI and was supposed to have a colonoscopy done. She notes that she never had a colonoscopy done because of her cardiac issue. Today on dialysis at the end of the dialysis. She has had multiple episodes of vomiting which did not respond to Zofran, she is also had significant weight loss over the last 6 weeks and therefore was sent to the emergency room for further evaluation. In the emergency room the patient received 2 doses of IV Reglan with some response. Given her weight loss acuity of symptom the patient is being admitted to the hospital for further evaluation. In the emergency room patient has been afebrile temperature 97.1, heart rate 94 , she is also had few runs of tachycardia. Blood pressure stable 107/68 respirations 18 saturations are 99% on room air. Chest x-ray done is negative for acute infiltrates to my interpretation. Abdominal x-ray is reported as negative. EKG shows sinus tachycardia ST-T wave changes inversions in anterior and lateral leads. Patient had lateral lead changes in the previous EKG anteriorly changes in V2 and V3 are new. Patient is asymptomatic has had cardiac bypass surgery. The patient's labs show mild leukocytosis at 11.4, hemoglobin 12.7, platelets 253. Sodium 132 potassium 4.3 bicarbonate 22. Creatinine 1.1 glucose 129. Alkaline phosphatase 234 and lipase is less than 7. INR is 1.8. 02/19 Patient seen and examined, no acute overnight events, nausea much better. She had a CT scan of the abdomen and pelvis which is negative except for possible gallstones ultrasound was advised which we are trying to get. She had low glucose values and needed dextrose x2. She also had an episode in which there was some slurring of speech glucose value was 58 slurring of speech responded to IV dextrose administration. 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 I have consulted Dr. Cohn to help me out with endoscopy this will be planned for tomorrow. At this point in time we are not sure the patient has gallstone disease, she may benefit from a cholecystectomy if she is found to have significant gallstone disease. 02/20 Patient seen and examined, no acute overnight events, no nausea. Patient was able to tolerate her supper last night. Ultrasound of the gallbladder shows acute cholecystitis. EGD done today shows gastritis some healing esophageal scar, and poor motility indicative of gastroparesis. Plan for cholecystectomy on Thursday. Patient will be transferred to inpatient status. 02/21 Patient seen and examined lying comfortably in bed no abdominal pain no nausea no vomiting. Plan for hemodialysis today. Plan for cholecystectomy tomorrow. INR is 1, patient has had a DVT/PE in the last 6 months start on DVT prophylaxis for today. Anticipate surgery and resume anticoagulation as soon as okay from surgery. 02/22 Patient seen and examined, lying in bed no abdominal pain no nausea no vomiting was able to have dinner last night. Plan for cholecystectomy today at 1 PM. Will resume anticoagulation as soon as surgery of case. Labs stable 02/23 Pt seen examined, no acute events yesterday, xfer back to med surg Pt lying comfortably in bed Plan for d/c to snf in AM Pertinent ROS: Denies headache, dizziness Denies chest pain, palpitations Denies cough or shortness of breath Denies abdominal pain, nausea or vomiting. - Constitutional Vitals: Vital Signs Temp Pulse Resp BP Pulse Ox 98 F 65 14 90/54 98 02/23/18 11:20 02/23/18 11:55 02/23/18 08:01 02/23/18 11:55 02/23/18 08:01 Period Temp Pulse Resp BP Sys/Brenner Pulse Ox Last 24 Hr 96.6 F-98.2 F 65-89 11-23 90-193/54-116 74-100 Intake and Output 02/22/18 02/23/18 02/23/18 21:59 05:59 13:59 Intake Total 599.0909 / 599.0909 300 / 300 Output Total 40 / 40 425 / 425 Balance 599.0909 / 599.0909 260 / 260 -425 / -425 Weight 148 lb 12.8 oz Intake & Output: Intake & Output 02/22/18 02/23/18 02/23/18 21:59 05:59 13:59 Intake Total 599.0909 / 599.0909 300 / 300 Output Total 40 / 40 425 / 425 Balance 599.0909 / 599.0909 260 / 260 -425 / -425 Weight 148 lb 12.8 oz Intake: IV 599.0909 / 599.0909 Oral 300 / 300 Output: Urine Catheter Amount 350 / 350 Void Amount 40 / 40 75 / 75 Other: Urine Appearance Purulent Straight Cloudy Urine Color Dark Yellow Dark Yellow Straight Bright Yellow Urine Odor Strong Foul Straight Foul Exam: Constitutional; Afebrile, cooperative, alert, not in distress. Eyes- No icterus, , No periorbital swelling Ears- Ext ear normal, hearing normal to conversation. Neck- Midline trachea, supple Respiratory system: Air Entry equal on both sides, No crackles or wheezing, no rhonchi. CVS- Rate rhythm regular, S1,S2 heard, no gallop, no rub. Abdomen- Soft nontender abdomen, no organomegaly, no tenderness, no guarding or rigidity, SUPERVISOR TELLERS- AOOx3, moving all extremities, no gross focal deficit noted. Medical - PN: Obj Da - Labs CBC & Chem 7: 02/23/18 04:17 02/23/18 04:17 Labs: Abnormal Lab Results 02/23/18 02/23/18 02/22/18 04:17 04:17 15:12 RBC Hgb 10.9 L Hct 35.0 L RDW 17.5 H MPV 10.8 H Lymph # (Auto) 0.8 L Sodium 127 L Chloride 93 L Carbon Dioxide 17 L Anion Gap 17.0 H BUN Creatinine 2.0 H Glucose 178 H Uric Acid 1.6 L Calcium 7.0 L Phosphorus 1.3 L Magnesium 1.4 L GGT 39 H Alkaline Phosphatase 181 H Lactate Dehydrogenase 348 H Total Protein Albumin 2.2 L Albumin/Globulin Ratio 0.6 L 02/22/18 02/22/18 02/22/18 15:12 04:10 04:10 RBC 3.79 L Hgb 10.3 L Hct 32.6 L RDW 17.3 H MPV 11.4 H Lymph # (Auto) Sodium 132 L 131 L Chloride 94 L 95 L Carbon Dioxide Anion Gap BUN Creatinine 1.7 H 1.4 H Glucose 108 H Uric Acid 1.0 L Calcium 8.0 L 7.7 L Phosphorus 0.9 L Magnesium GGT 38 H Alkaline Phosphatase 162 H Lactate Dehydrogenase Total Protein 5.4 L Albumin 2.3 L Albumin/Globulin Ratio 0.7 L 02/21/18 02/21/18 04:40 04:40 RBC 3.85 L Hgb 10.5 L Hct 33.4 L RDW 17.7 H MPV 10.9 H Lymph # (Auto) Sodium Chloride Carbon Dioxide Anion Gap 17.0 H BUN 5 L Creatinine 2.4 H Glucose Uric Acid Calcium 8.5 L Phosphorus 2.3 L Magnesium GGT 43 H Alkaline Phosphatase 188 H Lactate Dehydrogenase 296 H Total Protein Albumin 2.7 L Albumin/Globulin Ratio 0.8 L Meds: Medications Acetaminophen (Tylenol) 650 mg PO Q6HP PRN PRN Reason: PAIN/FEVER > 101 Albuterol Sulfate (Ventolin) 2.5 mg NEB Q2HP PRN PRN Reason: Shortness Of Breath Atorvastatin Calcium (Lipitor) 40 mg PO HS LEONIE Cinacalcet (Sensipar) 30 mg PO HS LEONIE Dextrose (Dextrose 50%) 0 ml IV UD PRN PRN Reason: Hypoglycemia Diagnostic Test (Pha) (Accu-Chek) 1 each FS [facility] Glucose (Insta-Glucose) 15 gm PO PRN PRN PRN Reason: Hypoglycemia Hydromorphone HCl (Dilaudid) 0.5 mg IV Q2HP PRN PRN Reason: PAIN LEVEL > 6 Ciprofloxacin (Cipro) 400 mg in 200 mls @ 200 mls/hr IV Q24H [facility] Insulin Human Lispro (Humalog) 0 unit SQ [facility]; Protocol Metoclopramide HCl (Reglan) 10 mg IV [facility] Metoprolol Tartrate (Lopressor) 100 mg PO BID [facility] Last Admin: 02/23/18 10:42 Dose: 100 mg Naloxone HCl (Narcan) 0.1 mg IV Q2MIN PRN PRN Reason: Opiate Reversal Ondansetron HCl (Zofran) 4 mg IV Q6HP PRN PRN Reason: Nausea And Vomiting Oxycodone HCl (Roxicodone) 5 mg PO Q4HP PRN PRN Reason: PAIN LEVEL 3-6 Pantoprazole Sodium (Protonix) 40 mg IV BIDAC [facility] Promethazine HCl (Phenergan) 12.5 mg IV Q6HP PRN PRN Reason: Nausea And Vomiting Sertraline HCl (Zoloft) 50 mg PO QDAY [facility] Last Admin: 02/23/18 10:42 Dose: 50 mg Venlafaxine HCl (Effexor Xr) 225 mg PO DAILY [facility] Last Admin: 02/23/18 10:41 Dose: 225 mg Warfarin Sodium (Coumadin Per Pharmacy) 1 order PO [facility] [place] Warfarin Sodium (Coumadin) 5 mg PO ONCE@1400 ONE Stop: 02/23/18 14:01 Medical - PN: A/P - Time Spent With Patient Total time spent is greater than 50% in coordination of care (as documented) at patient's floor/unit and/or counseling patient: - Narrative A/P Narrative: A/P Nausea/ vomiting Dehydration Weight loss Diabetes Mellitus Hypertension Hyperlipidemia Coronary Artery Disease s/p CABG Pulmonary Embolus, within last 6 months END stage renal disease on dialysis Chronic Diarrhea Depression Cholelithiaisis/ Acute cholecystitis Hypoglycemia Plan IV cipro , to continue for now, s/p cholecystectomy, post op day 1 INR 1.0, strted back on coumadin, start on eliquis to bridge, till INR is > 2.0 , recent DVT/PE in last 6 months, pt bed bound status most of the time. mild elevation of troponin due to renal dysfunction continue on PPI, reglan , improvement in gi symptoms encourage oral intake. ssi insulin for glucose control DVT eliquis 2.5mg bid, and started back on coumadin. Plan to discontinue eliquis once INR is > 2.0 Full code renal carbdiet. Medical - PN: Qual - Stroke Symptom Onset Unknown: No - VTE Deep Vein Thrombosis/Pulmonary Embolism Present on Admission: Yes
--- NOTE | 2018-02-23 13:16 | General Surgery Progress Note ---
Subjective Patient reports: feels better, pain is less, tolerating a regular diet, flatus, afebrile Narrative: Note initiated : 02/23/18 at 1:14 pm Service Date, if different from initiated Date: [] Patient: Louisa Cohn 42 y/o F admitted on 02/20/18 for N/V, Constipation. Chief Complaint: [Patient has hypoventilation postoperatively. She is much improved now and is on room air with excellent oxygenation. Her post operative pain is significantly improved. She is eating diet without nausea. She is stable for discharge but will be delayed because of the need for alf rehab.] Objective Temp Pulse Resp BP Pulse Ox 97.4 F 77 14 85/42 98 02/23/18 12:50 02/23/18 13:05 02/23/18 08:01 02/23/18 13:05 02/23/18 08:01 - Additional Data Intake & Output - Last 24 hours: Intake & Output 02/21/18 02/22/18 02/23/18 02/24/18 05:59 05:59 05:59 05:59 Intake Total 1000 / 1000 740 / 740 1099.0909 / 1099.0909 Output Total 800 / 800 40 / 40 425 / 425 Balance 990 / 990 -60 / -60 1059.0909 / 1059.0909 -425 / -425 Weight 144 lb 139 lb 8 oz 148 lb 12.8 oz - General physical appearance no distress, moderate pain - Eyes PERRL, normal ocular movement - ENT normal pinna, normal nares, normal mucosa, no hearing loss, no congestion - Neck no masses, no bruits, trachea midline, no lymphadectomy, no venous distension - Respiratory normal expansion, normal respiratory effort, clear to auscultation - Cardiovascular Cardiovascular exam: Present: normal rate and rhythm, RRR, +S1, +S2. Absent: JVD, tachycardia - Abdomen tender (Mild tenderness around port sites otherwise abdominal exam is benign) - Integumentary no rash, no growths, no abnormal pigmentation - Neurologic normal coordination, normal sensation - Psychiatric oriented to time, oriented to person, oriented to place, speech is normal, memory intact - Labs 02/23/18 04:17 02/23/18 04:17 Diabetes panel 02/22/18 02/23/18 Range/Units 15:12 04:17 Sodium 132 L 127 L (133-145) mmol/L Potassium 3.6 4.5 (3.3-5.1) mmol/L Chloride 94 L 93 L (96-108) mmol/L Carbon Dioxide 24 17 L (22-30) mmol/L BUN 12 15 (6-20) mg/dl Creatinine 1.7 H 2.0 H (0.6-1.1) mg/dl Glucose 108 H 178 H (70-105) mg/dL Calcium 8.0 L 7.0 L (8.6-10.4) mg/dl AST 34 (0-37) U/l ALT 11 (0-40) U/l Alkaline Phosphatase 181 H (39-117) U/L Total Protein 5.9 (5.9-8.4) gm/dL Albumin 2.2 L (3.2-5.2) gm/dL Triglycerides 93 (<150) mg/dl Calcium panel 02/22/18 02/22/18 02/23/18 Range/Units 15:12 15:12 04:17 Calcium 8.0 L 7.0 L (8.6-10.4) mg/dl Phosphorus 1.3 L 2.7 (2.7-4.5) mg/dL Albumin 2.2 L (3.2-5.2) gm/dL Pituitary panel 02/22/18 02/23/18 Range/Units 15:12 04:17 Sodium 132 L 127 L (133-145) mmol/L Potassium 3.6 4.5 (3.3-5.1) mmol/L Chloride 94 L 93 L (96-108) mmol/L Carbon Dioxide 24 17 L (22-30) mmol/L BUN 12 15 (6-20) mg/dl Creatinine 1.7 H 2.0 H (0.6-1.1) mg/dl Glucose 108 H 178 H (70-105) mg/dL Calcium 8.0 L 7.0 L (8.6-10.4) mg/dl Adrenal panel 02/22/18 02/23/18 Range/Units 15:12 04:17 Sodium 132 L 127 L (133-145) mmol/L Potassium 3.6 4.5 (3.3-5.1) mmol/L Chloride 94 L 93 L (96-108) mmol/L Carbon Dioxide 24 17 L (22-30) mmol/L BUN 12 15 (6-20) mg/dl Creatinine 1.7 H 2.0 H (0.6-1.1) mg/dl Glucose 108 H 178 H (70-105) mg/dL Calcium 8.0 L 7.0 L (8.6-10.4) mg/dl Total Bilirubin 0.4 (0.0-1.0) mg/dL AST 34 (0-37) U/l ALT 11 (0-40) U/l Alkaline Phosphatase 181 H (39-117) U/L Total Protein 5.9 (5.9-8.4) gm/dL Albumin 2.2 L (3.2-5.2) gm/dL Assessment and Plan (1) Intractable nausea and vomiting Status: Acute Assessment and plan: Nausea and vomiting has resolved Current Visit: Yes (2) Peripheral vascular disease due to secondary diabetes Status: Chronic Current Visit: Yes (3) End stage renal disease on dialysis Status: Chronic Current Visit: Yes (4) Anemia of chronic renal failure Status: Chronic Current Visit: No (5) CAD (coronary artery disease) Status: Chronic Current Visit: No (6) DMII (diabetes mellitus, type 2) Status: Chronic Current Visit: No (7) Depression Status: Chronic Current Visit: No (8) Hypertension, essential Status: Chronic Current Visit: No (9) Cholelithiasis with cholecystitis without obstruction Status: Acute Assessment and plan: Patient is counseled for laparoscopic cholecystectomy to be done tomorrow. Current Visit: Yes - Time Spent With Patient Total time spent is greater than 50% in coordination of care (as documented) at patient's floor/unit and/or counseling patient:
--- NOTE | 2018-02-23 13:39 | Nephrology Progress Note ---
Subjective Patient information: Note initiated : 02/23/18 at 1:36 pm Service Date, if different from initiated Date: [] Patient: Louisa Cohn 42 y/o F admitted on 02/20/18 for N/V, Constipation. Chief Complaint: [] Principal diagnosis: cholecystitis,gastritis Interval history: no new issues s/p surgery yda, was hypoventilating post op, did well overnight, now on regular floor no SOB, CP no edema no nausea, vomiting but continues to have poor appetite, poor energy Additional PMFSH (Level 3 Only): as above Objective - Vital Signs Vital signs: Vital Signs Temp Pulse Pulse Resp BP BP Pulse Ox 02/23/18 13:35 74 96/52 02/23/18 13:20 60 91/55 02/23/18 13:05 77 85/42 02/23/18 12:50 97.4 F 71 95/52 02/23/18 12:35 70 98/64 02/23/18 12:20 68 90/55 02/23/18 12:05 65 90/54 02/23/18 11:50 66 106/58 02/23/18 11:35 68 120/77 02/23/18 11:20 98 F 66 119/71 02/23/18 08:01 71 14 123/84 98 02/23/18 07:00 68 12 129/83 97 02/23/18 06:30 98 02/23/18 06:00 70 16 139/96 97 02/23/18 05:01 69 11 L 131/93 97 02/23/18 04:53 98.2 F 67 12 146/102 100 02/23/18 03:07 67 146/102 100 02/23/18 02:01 72 23 H 127/87 74 L 02/23/18 01:01 12 119/77 02/23/18 00:02 98.0 F 12 124/75 02/22/18 23:01 66 12 126/87 100 02/22/18 22:23 67 14 02/22/18 22:01 66 16 125/90 99 02/22/18 21:01 67 19 128/88 88 L 02/22/18 20:01 97.4 F 17 136/86 100 02/22/18 20:00 97 02/22/18 19:01 18 136/100 02/22/18 18:01 65 16 133/86 95 02/22/18 17:41 18 98 02/22/18 17:31 97.2 F 19 138/96 02/22/18 17:16 18 136/100 97 02/22/18 17:01 16 127/80 02/22/18 16:46 17 134/85 95 02/22/18 16:31 17 141/96 94 02/22/18 16:16 19 138/93 95 02/22/18 16:06 96.6 F L 20 150/103 96 02/22/18 15:44 97.6 F 65 14 134/76 100 02/22/18 15:38 97.7 F 66 19 134/86 100 02/22/18 15:24 98 F 67 18 133/75 100 02/22/18 15:09 98 F 72 20 147/100 99 02/22/18 15:00 75 13 98 02/22/18 14:56 97.8 F 72 12 157/90 02/22/18 14:46 97.6 F 73 17 161/97 99 02/22/18 14:41 85 11 L 167/100 98 02/22/18 14:36 88 12 161/97 98 02/22/18 14:31 98 F 85 15 193/108 95 02/22/18 14:26 88 16 175/108 96 02/22/18 14:21 73 193/116 100 02/22/18 14:20 78 14 96 02/22/18 14:16 98.1 F 89 14 184/97 98 Intake and Output 02/22/18 02/23/18 02/23/18 21:59 05:59 13:59 Intake Total 599.0909 / 599.0909 300 / 300 Output Total 425 / 425 Balance 599.0909 / 599.0909 260 / 260 -425 / -425 Intake: IV 599.0909 / 599.0909 Oral 300 / 300 Output: Urine Catheter Amount 350 / 350 Void Amount 40 / 40 75 / 75 Other: Urine Appearance Purulent Straight Cloudy Urine Color Dark Yellow Dark Yellow Straight Bright Yellow Urine Odor Strong Foul Straight Foul Weight 148 lb 12.8 oz Intake & Output: Intake & Output 02/22/18 02/23/18 02/23/18 21:59 05:59 13:59 Intake Total 599.0909 / 599.0909 300 / 300 Output Total 40 / 40 425 / 425 Balance 599.0909 / 599.0909 260 / 260 -425 / -425 Weight 148 lb 12.8 oz Intake: IV 599.0909 / 599.0909 Oral 300 / 300 Output: Urine Catheter Amount 350 / 350 Void Amount 40 / 40 75 / 75 Other: Urine Appearance Purulent Straight Cloudy Urine Color Dark Yellow Dark Yellow Straight Bright Yellow Urine Odor Strong Foul Straight Foul - General Appearance General appearance: appears started age, frail EENT: mucous membranes moist Neck: no JVD Cardiology: no rub, regular rate, regular rhythm Integumentary: warm and dry Neurologic: alert and oriented x3 Musculoskeletal: no deformities, no erythema Psychiatric: mood/affect appropriate - Lab 02/23/18 04:17 02/23/18 04:17 Most recent lab results Calcium 7.0 mg/dl (8.6-10.4) L 02/23/18 04:17 Phosphorus 2.7 mg/dL (2.7-4.5) 02/23/18 04:17 Magnesium 1.4 mg/dL (1.6-2.5) L 02/23/18 04:17 Assessment and Plan (1) Intractable nausea and vomiting multiple issues with EGD showing gastritis, gastroparesis, also has cholecystitis, s/p cholecystectomy today been treated for all of these with some improvement in symptoms Status: Acute Qualifiers: Vomiting type: unspecified Qualified Code(s): R11.2 - Nausea with vomiting , unspecified (2) End stage renal disease on dialysis HD today for 3/5 hrs using revaclear dialyser, 3K/2.5Ca dialysate, UF goal of 0.5-1L as tolerated with IDPN administered with dialysis, heparin held as had surgery yday Anemia of CKD Hb at goal secondary hyperparathyroidism: normal corrected calcium, low phos (from poor po intake, binders held, receiving IV replacement, monitor and correct as needed). Phos has improved will follow the trend and resume binders malnutrition: on IDPN during dialysis hope oral intake will improve with interventions recommend rehab given poor muscle strength and weakness, she will discuss this with her and let us know Will follow along Appreciate surgery and hospitalist help in managing this pt Status: Chronic
[2018-02-23] MEDS ORDERED: WARFARIN 5 MG TABLET PO ONE (14:00)
--- NOTE | 2018-02-23 16:17 | Discharge Summary ---
Medical - DS: Prov Patient information: Note initiated : 02/23/18 at 4:11 pm Service Date, if different from initiated Date: [] Patient: Louisa Cohn 42 y/o F admitted on 02/20/18 for N/V, Constipation. Chief Complaint: [] Date of admission: 02/20/18 10:13 Discharge date: 02/24/18 Primary care physician: Jerrica Joseph DO Consults: 02/18/18 21:02 Consult to Physician [CONS] Stat Comment: Consulting Provider: Deann Anton Reason For Exam: Physician to Consult 02/19/18 16:06 Consult to Physician [CONS] Routine Comment: EGD Consulting Provider: Celia Cohn Reason For Exam: Physician to Consult 02/22/18 16:20 Consult to Physician [CONS] Routine Comment: Consulting Provider: Dayna Dias Reason For Exam: Physician to Consult 02/23/18 13:05 Consult to Physician [CONS] Routine Comment: Consulting Provider: Yoanna Nolan Reason For Exam: Physician to Consult Medical - DS: Meds - Discharge Medications Prescriptions: Apixaban [Eliquis] 2.5 mg PO BID #6 tablet Ciprofloxacin HCl [Cipro] 500 mg PO BID #4 tablet Active and Home Medications: Home Medications loperamide 2 mg capsule 2 mg PO QID PRN #30 cap 05/28/16 [Rx Confirmed 02/18/18 Last Taken Unknown] metoprolol tartrate 100 mg tablet 100 mg PO BID #60 tab 08/27/16 [Rx Confirmed 02/18/18 Last Taken 02/18/18 09:00] insulin aspart U-100 100 unit/mL subcutaneous solution 4 unit SUB-Q ONCE #10 ml 04/08/17 [Rx Confirmed 02/18/18 Last Taken Unknown] cinacalcet 30 mg tablet 30 mg PO HS tab 07/09/17 [History Confirmed 02/18/18 Last Taken 02/17/18 21:30] amlodipine 10 mg tablet 10 mg PO QDAY #30 tab 07/20/17 [Rx Confirmed 02/18/18 Last Taken 02/17/18 21:30] atorvastatin 40 mg tablet 40 mg PO QDAY #30 tab 07/20/17 [Rx Confirmed 02/18/18 Last Taken 02/17/18 21:30] sertraline 50 mg tablet 50 mg PO QDAY #30 tab 07/20/17 [Rx Confirmed 02/18/18 Last Taken 02/17/18 21:30] venlafaxine ER 225 mg tablet,extended release 24 hr 225 mg PO QDAY #90 tab 07/20 [Rx Confirmed 02/18/18 Last Taken 02/17/18 21:30] sevelamer carbonate 800 mg tablet 1,600 mg PO TID #180 tab 08/05/17 [Rx Confirmed 02/18/18 Last Taken Unknown] insulin glargine (U-100) 100 unit/mL (3 mL) subcutaneous pen 20 unit SUB-Q QHS ml 09/07/17 [History Confirmed 02/18/18 Last Taken 02/17/18 21:30] pen needle, diabetic 31 gauge x 1/4" See Dose Instructions .ROUTE .MEDSUPPLY # 30 each 09/07/17 [Rx Confirmed 09/07/17 Last Taken Unknown] losartan 50 mg tablet 50 mg PO QDAY #30 tab 11/30/17 [Rx Confirmed 02/18/18 Last Taken 02/17/18 09:00] cetirizine 5 mg tablet 5 mg PO QDAY #30 tab 01/21/18 [Rx Confirmed 02/18/18 Last Taken 02/17/18 21:30] megestrol 400 mg/10 mL (10 mL) oral suspension 200 mg PO BID #1000 ml 02/02/18 [ Rx Confirmed 02/18/18 Last Taken Unknown] potassium chloride ER 10 mEq capsule,extended release 10 meq PO BID #60 cap [Rx Confirmed 02/18/18 Last Taken 02/16/18 09:00] Blood-Glucose Meter [Blood Glucose Monitoring] 1 strip 5XD 02/18/18 [History Confirmed 02/18/18 Last Taken 02/17/18 21:00] Warfarin Sodium [Jantoven] 2.5 mg PO DAILY 02/23/18 [History Confirmed 02/23/18 Last Taken Unknown] Medical - DS: Hosp Hospital course: Ms. Cohn is a 42 year old F with multiple medical issues, type II diabetic for last 20 years, right BKA, end-stage renal disease on hemodialysis, recent cardiac bypass surgery, pulmonary embolism in August 2017. Presently on Coumadin. Presents to the emergency room from her dialysis unit. The patient notes she has not been feeling well for the last 6 weeks, the patient has had decreased appetite and has not been eating very well since then. She is also had some nausea and vomiting. Over the last 3 weeks she has noticed that her stool color has changed and it is more darker than before. She has not had much bowel movement for the last 1 week as she has not eaten much. For the last week and a half she has been having intractable nausea and vomiting, she has not been able to eat much at all. She notes that the vomit happens with or without any association with meals, but if she eats something she will definitely threw up. It is biliary in nature, denies any blood in there. She has had intermittent projectile vomiting. The patient denies any abdominal pain, admits to having flulike symptoms just cold all the time. She denies any other acute symptoms. She denies any headache, changes in vision, she has intermittent difficulty in swallowing, she denies any cough shortness of breath or active chest pain. She denies any abdominal pain just some discomfort, denies any bowel bladder complaints, she has had diarrhea in the past, she was being followed by GI and was supposed to have a colonoscopy done. She notes that she never had a colonoscopy done because of her cardiac issue. Today on dialysis at the end of the dialysis. She has had multiple episodes of vomiting which did not respond to Zofran, she is also had significant weight loss over the last 6 weeks and therefore was sent to the emergency room for further evaluation. In the emergency room the patient received 2 doses of IV Reglan with some response. Given her weight loss acuity of symptom the patient is being admitted to the hospital for further evaluation. In the emergency room patient has been afebrile temperature 97.1, heart rate 94 , she is also had few runs of tachycardia. Blood pressure stable 107/68 respirations 18 saturations are 99% on room air. Chest x-ray done is negative for acute infiltrates to my interpretation. Abdominal x-ray is reported as negative. EKG shows sinus tachycardia ST-T wave changes inversions in anterior and lateral leads. Patient had lateral lead changes in the previous EKG anteriorly changes in V2 and V3 are new. Patient is asymptomatic has had cardiac bypass surgery. The patient's labs show mild leukocytosis at 11.4, hemoglobin 12.7, platelets 253. Sodium 132 potassium 4.3 bicarbonate 22. Creatinine 1.1 glucose 129. Alkaline phosphatase 234 and lipase is less than 7. INR is 1.8. 02/19 Patient seen and examined, no acute overnight events, nausea much better. She had a CT scan of the abdomen and pelvis which is negative except for possible gallstones ultrasound was advised which we are trying to get. She had low glucose values and needed dextrose x2. She also had an episode in which there was some slurring of speech glucose value was 58 slurring of speech responded to IV dextrose administration. 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 I have consulted Dr. Cohn to help me out with endoscopy this will be planned for tomorrow. At this point in time we are not sure the patient has gallstone disease, she may benefit from a cholecystectomy if she is found to have significant gallstone disease. 02/20 Patient seen and examined, no acute overnight events, no nausea. Patient was able to tolerate her supper last night. Ultrasound of the gallbladder shows acute cholecystitis. EGD done today shows gastritis some healing esophageal scar, and poor motility indicative of gastroparesis. Plan for cholecystectomy on Thursday. Patient will be transferred to inpatient status. 02/21 Patient seen and examined lying comfortably in bed no abdominal pain no nausea no vomiting. Plan for hemodialysis today. Plan for cholecystectomy tomorrow. INR is 1, patient has had a DVT/PE in the last 6 months start on DVT prophylaxis for today. Anticipate surgery and resume anticoagulation as soon as okay from surgery. 02/22 Patient seen and examined, lying in bed no abdominal pain no nausea no vomiting was able to have dinner last night. Plan for cholecystectomy today at 1 PM. Will resume anticoagulation as soon as surgery of case. Labs stable 02/23 Pt seen examined, no acute events yesterday, xfer back to med surg Pt lying comfortably in bed Plan for d/c to snf in AM Discharge diagnosis: acute cholecystitis gastritis - Time Spent with Patient Total time spent providing and/or coordinating discharge services: Medical - DS: Exam - Constitutional Vitals: Vital Signs Temp Pulse Pulse Resp BP BP Pulse Ox 02/23/18 14:50 77 88/44 02/23/18 14:35 74 87/46 02/23/18 14:20 74 95/46 02/23/18 14:05 73 93/51 02/23/18 13:50 80 85/35 10/09/18 13:35 74 96/52 02/23/18 13:20 60 91/55 02/23/18 13:05 77 85/42 02/23/18 12:50 97.4 F 71 95/52 02/23/18 12:35 70 98/64 02/23/18 12:20 68 90/55 02/23/18 12:05 65 90/54 02/23/18 12:00 97.4 F 71 12 95/52 02/23/18 11:50 66 106/58 02/23/18 11:35 68 120/77 02/23/18 11:20 98 F 66 119/71 02/23/18 08:01 71 14 123/84 98 02/23/18 07:00 68 12 129/83 97 02/23/18 06:30 98 02/23/18 06:00 70 16 139/96 97 02/23/18 05:01 69 11 L 131/93 97 02/23/18 04:53 98.2 F 67 12 146/102 100 02/23/18 03:07 67 146/102 100 02/23/18 02:01 72 23 H 127/87 74 L 02/23/18 01:01 12 119/77 02/23/18 00:02 98.0 F 12 124/75 02/22/18 23:01 66 12 126/87 100 02/22/18 22:23 67 14 02/22/18 22:01 66 16 125/90 99 02/22/18 21:01 67 19 128/88 88 L 02/22/18 20:01 97.4 F 17 136/86 100 02/22/18 20:00 97 02/22/18 19:01 18 136/100 02/22/18 18:01 65 16 133/86 95 02/22/18 17:41 18 98 02/22/18 17:31 97.2 F 19 138/96 02/22/18 17:16 18 136/100 97 02/22/18 17:01 16 127/80 02/22/18 16:46 17 134/85 95 02/22/18 16:31 17 141/96 94 02/22/18 16:16 19 138/93 95 Intake and Output 02/23/18 02/23/18 02/23/18 05:59 13:59 21:59 Intake Total 300 / 300 Output Total 40 / 40 425 / 425 750 / 750 Balance 260 / 260 -425 / -425 -750 / -750 Intake: Oral 300 / 300 Output: Urine Catheter Amount 350 / 350 Void Amount 40 / 40 75 / 75 Hemodialysis UF 750 / 750 Other: Urine Appearance Purulent Straight Cloudy Urine Color Dark Yellow Dark Yellow Straight Bright Yellow Urine Odor Strong Foul Straight Foul Medical - DS: Data Labs on day of discharge: Labs from last 24 hours 02/23/18 02/23/18 02/23/18 06:02 04:17 04:17 WBC 4.8 RBC 4.00 Hgb 10.9 L Hct 35.0 L MCV 87.3 MCH 27.4 MCHC 31.3 RDW 17.5 H Plt Count 166 MPV 10.8 H Gran % 74.3 Lymph % (Auto) 16.9 Zapata % (Auto) 8.4 Eos % (Auto) 0.1 Baso % (Auto) 0.3 Gran # 3.6 Lymph # (Auto) 0.8 L Zapata # (Auto) 0.4 Eos # (Auto) 0 Baso # (Auto) 0 PT 12.5 INR 0.9 Sodium 127 L Potassium 4.5 Chloride 93 L Carbon Dioxide 17 L Anion Gap 17.0 H BUN 15 Creatinine 2.0 H GFR Calculation 30 Glucose 178 H Uric Acid 1.6 L Calcium 7.0 L Phosphorus 2.7 Magnesium 1.4 L Total Bilirubin 0.4 Direct Bilirubin < 0.2 GGT 39 H AST 34 ALT 11 Alkaline Phosphatase 181 H Lactate Dehydrogenase 348 H Total Protein 5.9 Albumin 2.2 L Globulin 3.7 Albumin/Globulin Ratio 0.6 L Triglycerides 93 02/22/18 02/22/18 15:12 15:12 WBC RBC Hgb Hct MCV MCH MCHC RDW Plt Count MPV Gran % Lymph % (Auto) Zapata % (Auto) Eos % (Auto) Baso % (Auto) Gran # Lymph # (Auto) Zapata # (Auto) Eos # (Auto) Baso # (Auto) PT INR Sodium 132 L Potassium 3.6 Chloride 94 L Carbon Dioxide 24 Anion Gap 14.0 BUN 12 Creatinine 1.7 H GFR Calculation 37 Glucose 108 H Uric Acid Calcium 8.0 L Phosphorus 1.3 L Magnesium Total Bilirubin Direct Bilirubin GGT AST ALT Alkaline Phosphatase Lactate Dehydrogenase Total Protein Albumin Globulin Albumin/Globulin Ratio Triglycerides Medical - DS: A/P - Patient/Caregiver Discharge Instructions Activity: as per physical therapy Diet: Renal/Consistent Carbs Additional Instructions: Discharge Instructions: f/u with PT/OT for eval and treat outpt Wound Care: cleanse Left 2nd Toe and Right Hip wounds with saline. Dress with silver hydrofiber and bordered foam dressing. Change 3x/ week. InterDry under breasts. Sacral dressing on for protection to sacrum. offload sacrum and float heel when in bed, turning and repositioning every 2 hours or more. Follow up at wound healing center as new patient. Prescriptions: Apixaban [Eliquis] 2.5 mg PO BID #6 tablet Ciprofloxacin HCl [Cipro] 500 mg PO BID #4 tablet - Follow up Plan Follow up with: Deann Anton MD [Physician] - Rigo Bolden MD [Physician] - (Follow up early next week as new patient at wound healing center) Jerrica Joseph DO [Primary Care Provider] - Celia Cohn MD [Physician] - Disposition: Xfer SNF Prognosis: Fair Rehab Potential: Fair I certify that the patient requires SNF services: Yes Overall status at discharge: patient is progressing back to baseline Medical - DS: Qual - VTE Deep Vein Thrombosis/Pulmonary Embolism Present on Admission: Yes
[2018-02-23] MEDS ORDERED: ATORVASTATIN 20 MG TABLET PO SCH (21:00)
[2018-02-23] MEDS ORDERED: CINACALCET 30 MG TABLET PO SCH (21:00)
[2018-02-24 06:12] LABS: Basophils # (Auto) 0 K/mcL (0.0-0.3); Basophils % (Auto) 0.4 % (0.0-2.0); Eosinophils # (Auto) 0 K/mcL (0.0-0.7); Eosinophils % (Auto) 0.5 % (0.0-7.0); Granulocytes % (Auto) 53.2 % (38.0-78.0); Lymphocytes # (Auto) 2.5 K/mcL (1.5-4.8); Lymphocytes % (Auto) 36.5 % (15.5-49.0); Mean Cell Volume 85.3 fL (80.0-100.0); Mean Corpuscular HGB Conc 31.9 g/dL (31.0-36.0); Mean Corpuscular Hemoglobin 27.2 pg (26.0-34.0); Monocytes # (Auto) 0.7 K/mcL (0.1-0.9); Monocytes % (Auto) 9.4 % (1.0-12.0); Platelet Count 143 K/mcL (140-440); RBC 3.69 M/mcL (4.00-5.20); Red Cell Distribution Width 17.1 % (11.5-14.5)
[2018-02-24 06:40] LABS: ALT/SGPT 8 U/l (0-40); Albumin 2.6 gm/dL (3.2-5.2); Albumin/Globulin Ratio 0.9 (1.0-2.3); Alkaline Phosphatase 168 U/L (39-117); Bilirubin,Direct < 0.2 mg/dL (0.0-0.3); Blood Urea Nitrogen 17 mg/dl (6-20); Gamma Glutamyl Transpeptidase 47 U/L (5-36)
[2018-02-24] MEDS ORDERED: NEUTRA PHOS 1 PACKET PO ONE (08:29)
[2018-02-24] MEDS ORDERED: CIPROFLOXACIN 400 MG/200 ML BAG IV SCH (09:00)
[2018-02-24] MEDS: VENLAFAXINE 75 MG CAP.XL.24H PO SCH (09:53)
[2018-02-24] MEDS: METOPROLOL TARTRATE 50 MG TABLET PO SCH (09:53)
[2018-02-24] MEDS: APIXABAN 2.5 MG TABLET PO SCH (09:53)
[2018-02-24] MEDS: SERTRALINE 50 MG TABLET PO SCH (09:53)
[2018-02-24] MEDS: METOCLOPRAMIDE 10 MG/2 ML VIAL IV SCH ×2 (09:54→12:17)
[2018-02-24] MEDS: PANTOPRAZOLE 40 MG VIAL IV SCH (09:54)
[2018-02-24] MEDS: INSULIN LISPRO 1 UNIT/0.01 ML UNIT SQ SCH ×2 (09:54→11:48)
[2018-02-24] MEDS ORDERED: WARFARIN 5 MG TABLET PO ONE (14:00)
--- NOTE | 2018-02-26 11:02 | Operative Note ---
DATE OF OPERATION: 02/22/2018 PREOPERATIVE DIAGNOSIS: Cholelithiasis with cholecystitis. POSTOPERATIVE DIAGNOSIS: Cholelithiasis with cholecystitis. PROCEDURE: Laparoscopic cholecystectomy. SURGEON: Celia Cohn MD FINDINGS: Edematous dilated gallbladder with large stones. DESCRIPTION OF PROCEDURE: Under general anesthesia, the patient's abdomen was prepped and draped in the sterile field. A supraumbilical incision was made. Veress needle was inserted uneventfully. Abdomen was insufflated with 3 liters of CO2. A 12 mm port was placed. Laparoscope was placed. An edematous, dilated, thick gallbladder was noted. Under videoscopic guidance, a 12 mm port and two 5 mm ports were placed in the right subcostal region. The gallbladder was grasped and decompressed using a Weck needle. It was then positioned. The cystic duct was dissected followed back to the gallbladder. Cystic artery branches were dissected followed back to the gallbladder. The cystic duct was clipped with five clips and divided. Cystic artery branches were clipped with 4 clips and divided. The gallbladder was then from the infrahepatic bed using electrocautery and blunt dissection. It was placed in an Endopouch and retrieved. Irrigation was carried out. There was no significant blood loss. Hemostasis was achieved with electrocautery. CO2 was allowed to escape from the abdomen and the ports were removed. The fascia of the umbilicus was closed with 0 Vicryl. Skin incisions were closed with star. Dressings were placed. The patient tolerated the procedure well. She was awakened, transferred to a bed and taken to the Postanesthetic Care Unit in stable, satisfactory condition. LCS:anabelle Job ID: [id number] Doc ID: [id number] Celia Cohn M.D.
--- NOTE | 2018-03-16 15:24 | Operative Note ---
DATE OF OPERATION: 02/20/2018 PREOPERATIVE DIAGNOSIS: Recurrent nausea and vomiting. POSTOPERATIVE DIAGNOSES: Gastroparesis, diffuse gastritis, fundic gland polyps, distal esophageal ulceration. PROCEDURE: Esophagogastroduodenoscopy with biopsies of stomach and GE junction. SURGEON: Celia Cohn M.D. FINDINGS: Dilated stomach with retained gastric bile pool. No visible active peristalsis. Diffuse inflammation of the entire stomach which was much worse in the antrum. Scattered fundic gland polyps which were biopsied. Chronic superficial ulceration of the GE junction. Poor peristalsis of the esophagus. Normal duodenum. DESCRIPTION OF PROCEDURE: Under general anesthesia, the patient turned to the left lateral decubitus position. Bite block was placed. Timeout procedure was carried out as per protocol. Upper endoscope was introduced into the posterior pharynx through the bite block. It was maneuvered into the esophagus uneventfully. The esophagus was widely dilated, and there was a paucity of peristaltic activity. She did not have much peristaltic contractions at all. At the GE junction, there was mild inflammation, and there was a chronic superficial ulceration with a fibrinous base longitudinally. The stomach retained a large gastric bile pool. This was suctioned free. There was diffuse inflammation of the entire stomach, but it was more concentrated in the antrum. Pylorus was unremarkable. First, second and third portions of the duodenum were normal. Scope was pulled back and retroflex view was done. There were scattered fundic gland polyps, two of which were biopsied. The healing ulceration at the GE junction was noted. Biopsies of the antrum and the fundus were taken and sent for pathology. Air was suctioned from the stomach, and the scope was pulled back up to the GE junction where biopsies of the ulceration at the GE junction were taken. Air was suctioned from the stomach, and the scope was removed. The patient tolerated the procedure well. She was allowed to awaken and was taken to the postanesthetic care area for monitoring prior to returning to the floor. LCS:patricio Job ID: [id number] Doc ID: [id number] Celia Cohn M.D.
== END 2018-02-24 15:10 | DRG 417 ==
LOC: MEDSUR 16:49 → ED 16:49 → MEDSUR 20:49 → ICU 02-22 15:52 → MEDSUR 02-23 08:38
PROVIDERS: ADMIT Internal Medicine; ATTEND Internal Medicine
CPT/HCPCS: 43239; 731; 99219; 99220; 99231; 99238; A6197; A6213; A6248; A9270; G0378; J0131; J0330; J0744; J1100; J1644; J1650; J1817; J2001; J2250; J2310; J2370; J2405; J2710; J2765; J3010; J3430; J3475; J7030; J7050; J7060; J7120; Q9967

== ENCOUNTER 2018-03-08 11:03 | Observation (INO) ==
[2018-03-08] MEDS ORDERED: ACETAMINOPHEN 325 MG TABLET PO PRN ×2 (11:10→15:41)
[2018-03-08] MEDS ORDERED: ONDANSETRON 4 MG/2 ML VIAL IV PRN ×2 (11:10→15:41)
[2018-03-08] MEDS ORDERED: 0.9 % SODIUM CHLORIDE 1,000 ML IV SCH (11:15)
--- NOTE | 2018-03-08 12:44 | XRay Report ---
CLINICAL INFORMATION: HYPOTENSION COMPARISON: 02/18/2018 FINDINGS: Right IJ double-lumen catheter tip remains in stable position in the right atrium with the tip near the tricuspid valve plane. Sternotomy changes again noted. Heart size, mediastinum and pulmonary vessels are normal. The lungs are clear. No effusions. IMPRESSION: Negative Interpreted and Authenticated by: Zion Valles 03/08/18
--- NOTE | 2018-03-08 13:25 | Cat Scan Report ---
CLINICAL INFORMATION: Status post cholecystectomy - hypotension COMPARISON: Preoperative abdominal and pelvic CT 02/19/2018. TECHNIQUE: 0.625 mm helical slices were obtained from the mid heart through the subtrochanteric regions. Following reconstruction, 2.5 mm sagittal, coronal and axial reformatted images were processed and reviewed at bone and soft tissue windows.The exam was performed using radiation dose optimization techniques including, but not limited to, automated exposure control, adjustment of the mA and/or kV according to patient size and use of iterative reconstruction technique. FINDINGS: A small left pleural effusion is new from the preoperative study. There is minor bibasilar atelectasis. The heart is mildly enlarged and sternotomy changes are noted with mild sternal dehiscence. Images through the abdomen show the gallbladder is surgically absent. Intrahepatic and common bile ducts are normal caliber CBD is 6 mm. No intraductal stones. The noncontrasted liver, both adrenal glands, and spleen are normal in size configuration and attenuation without focal lesion. There is mild atrophy of the pancreas and also atrophy of both kidneys, and previously seen, each kidney is approximately 8 cm in length. There is moderate premature calcific plaque throughout the abdominal aorta and aortic branching vessels - previously seen. Images through the pelvis show the urinary bladder is now unremarkable. A diminutive anteflexed uterus spans 5 x 1.1 cm. Malpositioned IUD with the tip extending through the endocervical canal to tent the posterior wall of the vagina seen - as before. Both ovaries are normal - as before. The stomach and small lateral large bowel are unremarkable. Tiny amounts of free intraperitoneal air is seen as expected in the post operative. There is no intraperitoneal or retroperitoneal hemorrhage. Bone windows show no osseous abnormality IMPRESSION: 1. No evidence of intra-abdominal/pelvic hemorrhage or other cause identified for postoperative hypertension 2. Malpositioned IUD with the distal portion extending through the endocervical canal and tents the posterior vagina wall. 3. Mild pancreatic and bilateral renal atrophy - stable 4. Small left pleural effusion - new from preoperative CT. 5. Sternotomy dehiscence - incompletely imaged Interpreted and Authenticated by: Zion Valles 03/08/18
[2018-03-08 13:56] LABS: Basophils # (Auto) 0.1 K/mcL (0.0-0.3); Basophils % (Auto) 1.4 % (0.0-2.0); Eosinophils # (Auto) 0.2 K/mcL (0.0-0.7); Eosinophils % (Auto) 2.3 % (0.0-7.0); Lymphocytes # (Auto) 1.8 K/mcL (1.5-4.8); Lymphocytes % (Auto) 26.5 % (15.5-49.0); Mean Cell Volume 83.7 fL (80.0-100.0); Mean Corpuscular HGB Conc 32.3 g/dL (31.0-36.0); Monocytes # (Auto) 0.7 K/mcL (0.1-0.9); Monocytes % (Auto) 9.8 % (1.0-12.0); Platelet Count 334 K/mcL (140-440); RBC 3.56 M/mcL (4.00-5.20)
[2018-03-08] MEDS ORDERED: 0.9 % SODIUM CHLORIDE 10 ML SYRINGE IV SCH (14:00)
[2018-03-08 14:20] LABS: ALT/SGPT 26 U/l (0-40); Albumin 2.5 gm/dL (3.2-5.2); Albumin/Globulin Ratio 0.7 (1.0-2.3); Alkaline Phosphatase 558 U/L (39-117); Bilirubin,Direct < 0.2 mg/dL (0.0-0.3); Blood Urea Nitrogen 19 mg/dl (6-20); Gamma Glutamyl Transpeptidase 171 U/L (5-36); Uric Acid 3.5 mg/dL (2.5-8.0)
[2018-03-08] MEDS ORDERED: ONDANSETRON ODT 4 MG TABLET SL PRN ×2 (15:40→15:57)
[2018-03-08] MEDS: 0.9 % SODIUM CHLORIDE 1,000 ML IV SCH (17:40)
[2018-03-08] MEDS: APIXABAN 2.5 MG TABLET PO SCH (20:15)
[2018-03-08] MEDS: 0.9 % SODIUM CHLORIDE 10 ML SYRINGE IV SCH (20:15)
[2018-03-08] MEDS ORDERED: APIXABAN 2.5 MG TABLET PO SCH (21:00)
[2018-03-09] MEDS: 0.9 % SODIUM CHLORIDE 10 ML SYRINGE IV SCH (05:23)
[2018-03-09] MEDS: 0.9 % SODIUM CHLORIDE 1,000 ML IV SCH (05:23)
[2018-03-09] MEDS ORDERED: PANTOPRAZOLE 40 MG TABLET PO SCH ×2 (07:30)
[2018-03-09] MEDS: APIXABAN 2.5 MG TABLET PO SCH (08:38)
[2018-03-09] MEDS ORDERED: MIDODRINE 5 MG TABLET PO PRN (08:56)
[2018-03-09] MEDS ORDERED: SERTRALINE 50 MG TABLET PO SCH ×2 (09:00)
[2018-03-09] MEDS ORDERED: VENLAFAXINE 75 MG CAP.XL.24H PO SCH (09:00)
[2018-03-09] MEDS ORDERED: VENLAFAXINE HCL 225 MG PO SCH (09:00)
[2018-03-09] MEDS ORDERED: INSULIN GLARGINE, HUMAN 1 UNIT/0.01 ML SQ SCH (21:00)
--- NOTE | 2018-03-17 11:24 | Brief Operative Note ---
Date of procedure: 03/17/18 Surgeon: Celia Cohn
--- NOTE | 2018-03-17 11:35 | General Surgery Progress Note ---
Subjective Patient reports: feels better, tolerating a regular diet, flatus, bowel movement , afebrile Narrative: Note initiated : 03/17/18 at 11:33 am Service Date, if different from initiated Date: [03/09/18] Patient: Louisa Cohn 42 y/o F admitted on 03/08/18 for Severe Hypotension. Chief Complaint: [Patient feels much better. Her weakness has improved. Her blood pressure has been stable throughout the night. Her orthostatic dizziness has resolved. She denies chest pain or shortness of breath. She denies abdominal discomfort or nausea. She is mentally alert. Patient is felt to be stable enough for discharge and transferred over to dialysis for outpatient dialysis prior to returning to the nursing care facility.] Objective Temp Pulse Resp BP Pulse Ox 98.0 F 72 16 119/72 97 03/09/18 11:25 03/09/18 11:25 03/09/18 11:25 03/09/18 11:25 03/09/18 11:25 - General physical appearance no distress, chronically ill - Eyes PERRL, normal ocular movement - ENT normal pinna, normal nares, normal mucosa, no hearing loss, no congestion - Neck no masses, no bruits, trachea midline, no lymphadenopathy, no venous distension - Respiratory normal respiratory effort, clear to auscultation (lungs are clear without any rales or rhonchi) - Cardiovascular Cardiovascular exam: Present: normal rate and rhythm, +S1, +S2. Absent: JVD, tachycardia (heart rate is about 80 and blood pressure is between 110 and 120 systolic) - Abdomen non tender, bowel sounds (present), surgical scars (none), masses (none) - Integumentary no rash, no growths, no abnormal pigmentation - Neurologic normal coordination, normal sensation - Psychiatric oriented to time, oriented to person, oriented to place, speech is normal, memory intact - Labs 03/08/18 13:05 03/08/18 13:05 Assessment and Plan (1) Hypotension Status: Acute Assessment and plan: Hypotension has resolved and blood pressure and heart rate are stable. Patient is stable for discharge and transfer to outpatient dialysis prior to being transferred to correction facility for rehabilitation (2) CAD (coronary artery disease) Status: Chronic (3) DMII (diabetes mellitus, type 2) Status: Chronic (4) End stage renal disease on dialysis Status: Chronic (5) Hypertension, essential Status: Chronic - Time Spent With Patient Total time spent is greater than 50% in coordination of care (as documented) at patient's floor/unit and/or counseling patient:
== END 2018-03-09 11:25 ==
LOC: ICU 11:51 → INTOOBSV 11:51
PROVIDERS: ADMIT Family Medicine Adult Medicine; ATTEND Family Medicine Adult Medicine

== ENCOUNTER 2018-03-26 15:54 | Inpatient (IN) ==
[2018-03-26] MEDS ORDERED: 0.9 % SODIUM CHLORIDE 1,000 ML IV SCH (16:15)
--- NOTE | 2018-03-26 16:19 | Emergency Department Note ---
General Adult HPI - General Chief complaint: Altered Mental Status Stated complaint: pos blood culture, confusion, hallucinations Time Seen by Provider: 03/26/18 16:02 Source: patient, EMS Mode of arrival: EMS Limitations: no limitations - History of Present Illness HPI Narrative: The patient is a 42-year-old female who presents today via [facility] for concern of altered mental status with hallucinations. The patient was seen yesterday and diagnosed with a UTI, started on antibiotic, and sent to dialysis. At dialysis they vangie blood cultures and today one came back preliminarily as gram-positive cocci. The shipping and receiving material handler called the patient's facility and the staff stated that she has been having hallucinations and "not doing well." He advised her to come in for further evaluation. The patient states that she has been having hallucinations and states that she is seeing spiders crawling on the wall and people walking by her room that aren't really there. She denies any pain. She does not understand what she was diagnosed with yesterday and states that she was never told. Currently in a dialysis schedule of Thursday//Thursday. Denies any fevers or chills. Denies any nausea or vomiting. - Related Data Home Medications Medication Instructions Recorded Confirmed cinacalcet 30 mg tablet 30 mg PO HS tab 07/09/17 03/26/18 Blood-Glucose Meter [Blood Glucose 1 strip 5XD 02/18/18 03/08/18 Monitoring] metoprolol succinate ER 25 mg 25 mg PO QDAY 03/04/18 03/26/18 capsule sprinkle, ext. release 24 hr midodrine 5 mg tablet 5 mg PO TID PRN tab 03/04/18 03/26/18 ondansetron HCl 4 mg tablet 4 mg PO Q4H PRN tab 03/08/18 03/26/18 warfarin 2.5 mg tablet 7.5 mg PO DAILY 03/08/18 03/26/18 Warfarin [Coumadin] 5 mg PO DAILY 03/09/18 03/26/18 Dextrose [Glucose Bits] 1 gm PO PRN PRN 03/26/18 03/26/18 Ferrous Sulfate [Iron] 325 mg PO BID 03/26/18 03/26/18 Glucagon,Human Recombinant 1 mg PO PRN PRN 03/26/18 03/26/18 [Glucagon Emergency Kit] Insulin Glargine,Hum.rec.anlog 10 unit SQ ONCE 03/26/18 03/26/18 [Basaglgracia [place] U-100] Promethazine [Phenergan] 25 mg PO Q8HP PRN 03/26/18 03/26/18 QUEtiapine [SEROquel] 25 mg PO HS 03/26/18 03/26/18 Sulfamethoxazole/Trimethoprim 1 tab PO BID 03/26/18 03/26/18 [Bactrim Ds] Previous Rx's Medication Instructions Recorded loperamide 2 mg capsule 2 mg PO QID PRN #30 cap 05/28/16 atorvastatin 40 mg tablet 40 mg PO QDAY #30 tab 07/20/17 venlafaxine ER 225 mg 225 mg PO QDAY #90 tab 07/20/17 tablet,extended release 24 hr sevelamer carbonate 800 mg tablet 1,600 mg PO TID #180 tab 08/05/17 cetirizine 5 mg tablet 5 mg PO QDAY #30 tab 01/21/18 Allergies Allergy/AdvReac Type Severity Reaction Status Date / Time No Known Drug Allergies Allergy Verified 03/25/18 10:42 Review of Systems All systems ED: reviewed and negative except as stated. Past Medical History - Past Medical History Attestation: Yes: The following information was validated with the patient. Medical history: Reports: coronary artery disease, DM (Type II now on dialysis.) , hypertension, renal disease (End-stage, on dialysis.), other (Pulmonary embolism.). Denies: cancer, CVA, GERD, hyperlipidemia, myocardial infarction, TIA Psychiatric history: Reports: depression (Takes Effexor.). Denies: anxiety Surgical history ED: Reports: coronary bypass (CABG), other (AKA (right).) - Social History smoking status: Never smoker Alcohol use: Reports: None Drug use: Reports: none. Denies: marijuana Physical Exam Limitations: no limitations General appearance: alert, in no apparent distress Head: atraumatic Eye: Present: PERRL (enlarged pupils, reactive bilaterally) ENT: normal exam Neck: Present: normal inspection Chest: Present: normal inspection Respiratory: Present: normal lung sounds bilaterally Cardiovascular: Present: regular rate, normal rhythm Abdominal: Present: soft, normal bowel sounds Upper leg: Present: other (right knee amputation above the knee) Back: Present: normal inspection Neurological: Present: alert, oriented X3, other (at times seems a bit woozy and eyes will roll back) Psychiatric: Present: normal affect, normal mood Skin: Present: warm, dry Course Course Narrative: This is a 42-year-old female recently diagnosed with UTI who presents now with worsening symptoms including hallucinations. She is afebrile on presentation with a pulse of 98. Blood work was ordered and fluids at a rate of 100 cc an hour were started. She is on dialysis and I do not want to fluid overload her but suspect she may have sepsis. Blood culture could be a contamination but in the setting of a change in symptoms will rule out systemic disease. - Reevaluation(s) Reevaluation #1: Potassium was 2.8 and started supplementation with a K-rider. Reevaluation #2: On review with the patient and her family - they state that she has had hallucinations for the week prior. No new medications were started at that time. Deny any drug use. Urine drug screen comes back as +amphetamines. Patient states she is not sure how this could have happened. Vital Signs Temperature 98.5 F 03/26/18 15:55 Pulse Rate 98 H 03/26/18 15:55 Respiratory Rate 12 03/26/18 15:55 Blood Pressure 109/88 03/26/18 15:55 Pulse Oximetry (%) 94 03/26/18 15:55 Temperature 98.4 F 03/28/18 15:49 Pulse Rate 95 H 03/28/18 15:49 Respiratory Rate 20 03/28/18 15:49 Blood Pressure 139/92 03/28/18 15:49 Pulse Oximetry (%) 93 03/28/18 15:49 Medical Decision Making - MDM Narrative Medical decision making narrative: Patient with recently diagnosed UTI presenting with altered mental status - she is having hallucinations in the room. Discussed with hospitalists who will admit the patient for possible delirium associated with UTI and try to identify what is triggering her hallucinations. - Lab Data Lab results reviewed: Yes I reviewed the patient's lab results. Result diagrams: 03/28/18 03:41 03/28/18 03:41 Lab Results 03/26/18 03/26/18 03/26/18 Range/Units 16:02 16:15 16:20 WBC (4.5-11.0) K/mcL RBC (4.00-5.20) M/mcL Hgb (12.0-15.0) g/dL Hct (36.0-48.0) % MCV (80.0-100.0) fL MCH (26.0-34.0) pg MCHC (31.0-36.0) g/dL RDW (11.5-14.5) % Plt Count (140-440) K/mcL MPV (7.4-10.4) fL Gran % (38.0-78.0) % Lymph % (Auto) (15.5-49.0) % [place] % (Auto) (1.0-12.0) % Eos % (Auto) (0.0-7.0) % Baso % (Auto) (0.0-2.0) % Gran # (1.8-8.0) K/mcL Lymph # (Auto) (1.5-4.8) K/mcL [place] # (Auto) (0.1-0.9) K/mcL Eos # (Auto) (0.0-0.7) K/mcL Baso # (Auto) (0.0-0.3) K/mcL VBG Lactic Acid 1.5 (0.5-2.0) mmol/L Sodium (133-145) mmol/L Potassium (3.3-5.1) mmol/L Chloride (96-108) mmol/L Carbon Dioxide (22-30) mmol/L Anion Gap (8-16) BUN (6-20) mg/dl Creatinine (0.6-1.1) mg/dl GFR Calculation Glucose (70-105) mg/dL Calcium (8.6-10.4) mg/dl Total Bilirubin (0.0-1.0) mg/dL AST (0-37) U/l ALT (0-40) U/l Alkaline Phosphatase (39-117) U/L Total Protein (5.9-8.4) gm/dL Albumin (3.2-5.2) gm/dL Globulin (2.2-3.7) gm/dL Albumin/Globulin Ratio (1.0-2.3) Urine Color Lanie Urine Appearance Turbid Urine pH 6.0 (5.0-9.0) Ur Specific [place] 1.014 (1.000-1.035) Urine Protein 100 A (NEG) mg/dL Urine Glucose (UA) Negative (NEG) mg/dL Urine Ketones Neg (NEG) mg/dL Urine Occult Blood 0.03 A (<0.03) mg/dL Urine Nitrate Neg (NEG) Urine Bilirubin Neg (NEG) mg/dL Urine Urobilinogen Neg (NEG) mg/dL Ur Leukocyte Esterase 500 A (NEG) /uL Urine RBC 32 H (0-1) /hpf Urine WBC > 182 H (0-4) /hpf Ur Squamous Epith Cells 1 (0-4) /hpf Urine Bacteria 0 (0) /hpf Hyaline Casts 12 H (0-2) /lpf Urine Mucus Few (0) /hpf Ur Culture Indicated? Yes Urine Opiates Screen None detected (NONDETECTED) Ur Opiates Confirm Not Reportable Ur Oxycodone Screen None detected (NONDETECTED) Urine Methadone Screen None detected (NONDETECTED) Ur Methadone Confirm Not Reportable Ur Barbiturates Screen None detected (NONDETECTED) Ur Barbiturate Confirm Not Reportable Ur Phencyclidine Scrn None detected (NONDETECTED) Urine PCP Confirm Not Reportable Ur Amphetamines Screen Suspect positive A (NONDETECTED) U Amphetamines Confirm Not Reportable U Benzodiazepines Scrn None detected (NONDETECTED) U Benzodiazepine Confm Not Reportable Urine Cocaine Screen None detected (NONDETECTED) Urine Cocaine Confirm Not Reportable U Cannabinoids Confirm Not Reportable U Marijuana (THC) Screen None detected (NONDETECTED) 03/26/18 03/26/18 Range/Units 16:24 16:24 WBC 8.4 (4.5-11.0) K/mcL RBC 2.76 L (4.00-5.20) M/mcL Hgb 7.4 L (12.0-15.0) g/dL Hct 22.3 L (36.0-48.0) % MCV 81.0 (80.0-100.0) fL MCH 26.6 (26.0-34.0) pg MCHC 32.9 (31.0-36.0) g/dL RDW 17.0 H (11.5-14.5) % Plt Count 316 (140-440) K/mcL MPV 8.6 (7.4-10.4) fL Gran % 64.4 (38.0-78.0) % Lymph % (Auto) 21.2 (15.5-49.0) % [place] % (Auto) 12.4 H (1.0-12.0) % Eos % (Auto) 1.3 (0.0-7.0) % Baso % (Auto) 0.7 (0.0-2.0) % Gran # 5.4 (1.8-8.0) K/mcL Lymph # (Auto) 1.8 (1.5-4.8) K/mcL [place] # (Auto) 1.0 H (0.1-0.9) K/mcL Eos # (Auto) 0.1 (0.0-0.7) K/mcL Baso # (Auto) 0.1 (0.0-0.3) K/mcL VBG Lactic Acid (0.5-2.0) mmol/L Sodium 132 L (133-145) mmol/L Potassium 2.8 L* (3.3-5.1) mmol/L Chloride 92 L (96-108) mmol/L Carbon Dioxide 27 (22-30) mmol/L Anion Gap 13.0 (8-16) BUN 12 (6-20) mg/dl Creatinine 1.4 H (0.6-1.1) mg/dl GFR Calculation 46 Glucose 61 L (70-105) mg/dL Calcium 8.3 L (8.6-10.4) mg/dl Total Bilirubin 0.3 (0.0-1.0) mg/dL AST 9 (0-37) U/l ALT < 5 (0-40) U/l Alkaline Phosphatase 274 H (39-117) U/L Total Protein 6.0 (5.9-8.4) gm/dL Albumin 2.7 L (3.2-5.2) gm/dL Globulin 3.3 (2.2-3.7) gm/dL Albumin/Globulin Ratio 0.8 L (1.0-2.3) Urine Color Urine Appearance Urine pH (5.0-9.0) Ur Specific [place] (1.000-1.035) Urine Protein (NEG) mg/dL Urine Glucose (UA) (NEG) mg/dL Urine Ketones (NEG) mg/dL Urine Occult Blood (<0.03) mg/dL Urine Nitrate (NEG) Urine Bilirubin (NEG) mg/dL Urine Urobilinogen (NEG) mg/dL Ur Leukocyte Esterase (NEG) /uL Urine RBC (0-1) /hpf Urine WBC (0-4) /hpf Ur Squamous Epith Cells (0-4) /hpf Urine Bacteria (0) /hpf Hyaline Casts (0-2) /lpf Urine Mucus (0) /hpf Ur Culture Indicated? Urine Opiates Screen (NONDETECTED) Ur Opiates Confirm Ur Oxycodone Screen (NONDETECTED) Urine Methadone Screen (NONDETECTED) Ur Methadone Confirm Ur Barbiturates Screen (NONDETECTED) Ur Barbiturate Confirm Ur Phencyclidine Scrn (NONDETECTED) Urine PCP Confirm Ur Amphetamines Screen (NONDETECTED) U Amphetamines Confirm U Benzodiazepines Scrn (NONDETECTED) U Benzodiazepine Confm Urine Cocaine Screen (NONDETECTED) Urine Cocaine Confirm U Cannabinoids Confirm U Marijuana (THC) Screen (NONDETECTED) Disposition Pt seen by TELEPHONE ORDER CLERK/PA only: No Clinical Impression: Altered mental status Disposition: Xfer As Inpt ([facility]) Condition: Fair
[2018-03-26 17:08] LABS: Basophils # (Auto) 0.1 K/mcL (0.0-0.3); Basophils % (Auto) 0.7 % (0.0-2.0); Eosinophils # (Auto) 0.1 K/mcL (0.0-0.7); Eosinophils % (Auto) 1.3 % (0.0-7.0); Granulocytes % (Auto) 64.4 % (38.0-78.0); Lymphocytes # (Auto) 1.8 K/mcL (1.5-4.8); Lymphocytes % (Auto) 21.2 % (15.5-49.0); Mean Corpuscular HGB Conc 32.9 g/dL (31.0-36.0); Mean Corpuscular Hemoglobin 26.6 pg (26.0-34.0); Monocytes % (Auto) 12.4 % (1.0-12.0); Platelet Count 316 K/mcL (140-440); RBC 2.76 M/mcL (4.00-5.20)
[2018-03-26 17:12] LABS: Appearance,Urine TURBID; Bacteria,Urine 0 /hpf (0); Bilirubin,Urine NEG (NEG); Color,Urine AMBER; Glucose,Urine (UA) NEGATIVE (NEG); Leukocyte Esterase,Urine 500 /uL (NEG); Mucus,Urine FEW /hpf (0); Protein,Urine 100 mg/dL (NEG); Specific Gravity,Urine 1.014 (1.000-1.035); Urine Blood 0.03 mg/dL (<0.03); Urine Hyaline Cast 12 /lpf (0-2); Urine RBC 32 /hpf (0-1); Urine Squamous Epithelial Cell 1 /hpf (0-4); Urine WBC > 182 /hpf (0-4); Urobilinogen,Urine NEG (NEG)
[2018-03-26 17:19] LABS: Amphetamine Screen,Urine SUSPECT POSITIVE (NONDETECTED); Benzodiazepines Screen,Urine NONE DETECTED (NONDETECTED); Cocaine Screen,Urine NONE DETECTED (NONDETECTED); Opiate Screen,Urine NONE DETECTED (NONDETECTED); Oxycodone, Urine Screen NONE DETECTED (NONDETECTED)
[2018-03-26 17:41] LABS: ALT/SGPT < 5 U/l (0-40); Albumin 2.7 gm/dL (3.2-5.2); Albumin/Globulin Ratio 0.8 (1.0-2.3); Alkaline Phosphatase 274 U/L (39-117); Blood Urea Nitrogen 12 mg/dl (6-20)
[2018-03-26] MEDS ORDERED: POTASSIUM CHLORIDE 40 MEQ in DEXTROSE 5% IN WATER 500 ML IV ONE (17:43)
[2018-03-26] MEDS ORDERED: POTASSIUM CHLORIDE 20 MEQ/10 ML VIAL IV ONE (18:04)
--- NOTE | 2018-03-26 21:10 | Internal Med History&Physical ---
Medical - H&P: HPI Patient information: Note initiated : 03/26/18 at 9:09 pm Service Date, if different from initiated Date: [] Patient: Louisa Cohn a 42 y/o F admitted on for pos blood culture, confusion, hallucinations. Chief Complaint: confusion, positive blood cultures History of present illness: Ms. Cohn is a 42 year old F with a history of type 2 diabetes, peripheral and cardiovascular disease, end-stage renal disease on dialysis, hypertension with periods of hypotension who presents to the ED after having blood cultures become positive. The patient was seen in the emergency room yesterday for hypoglycemia, is found to have floridly positive urine with significant pyuria and bacteriuria. She was started on Bactrim and then went to hemodialysis for her normal session as an outpatient yesterday. During dialysis she had blood cultures drawn. Patient seems to describe her having chills during hemodialysis (though later says she gets chilled chronically) and that may have been the reason for the blood cultures being drawn. Today one of those bottles of the 2 sets is positive for gram-positive cocci in clusters and she was sent back to the ED for evaluation. On top of the hypoglycemia, urinary tract infection, the patient has also had confusion for the last few weeks. She has been having hallucinations, sometimes realizing she is seeing things that are incorrect, and other times not. notes that she picks at things, sometimes appears to be attending to external stimuli. Often times during conversation and he replies she tends to ramble off tangentially. She gets hemodialysis on Tuesdays and Saturdays and not missed any sessions. She gets dialysis via a tunneled right IJ catheter. Patient states that she occasionally feels dizzy and lightheaded. She describes feeling chilled, wants to get into the car and have the heater turned up to get warm, though states that this is chronic and has not necessarily changed. She thinks she may have had blood pressure medications changed recently, not sure about others. She's had problems with low blood pressure recently. She denies dysuria. She has no abdominal pain. She has chronic nausea as well as chronic loose stools which were unchanged. Her appetite is decreased. She has been having trouble with low glucoses, and her Lantus has been stopped. The patient currently resides at a skilled facility for further strengthening. She's had several hospitalizations, including coronary bypass surgery in August, subsequent sternal wound infection, pulmonary embolism, hospitalization at this facility for nausea and vomiting, status post cholecystectomy last month. In the emergency department, her white count was normal, she was hypokalemic. She has evidence of ongoing urinary tract infection. She has evidence of ongoing confusion and some hallucinations. She is being admitted for treatment of urinary tract infection, delirium as well as further evaluation of possible bloodstream infection. All systems: reviewed and no additional remarkable complaints except as stated Medical - H&P: PMH Medical history: DMII (diabetes mellitus, type 2) (Chronic ~2003) Hypotension (Chronic) Metabolic bone disease (Chronic) Hyperlipidemia (Chronic) End stage renal disease on dialysis (Chronic) CAD (coronary artery disease) (Chronic) Hypertension, essential (Chronic ~1999) Bowel incontinence (Chronic) Anemia of chronic renal failure (Chronic) Amputee, above knee (Chronic) 2016 Kidney failure (Chronic ~2006) Congenital heart disease (Chronic) Heart problem (Chronic ~2002) Depression (Chronic ~2005) Anxiety (Chronic ~2003) Surgical history: H/O colonoscopy (Chronic) History of surgery (Chronic 08/16/15) Atherosclerosis with ulceration of right lower extremity Severe 3 vessel coronary artery disease History of surgery (Chronic 09/03/15) Revascularization left lower extremity with transluminal angioplasty of left superficial femoral and popliteal artery segments Revascularization with transliminal angioplasty of left anterior tibial artery Hx of coronary artery bypass graft (Chronic 08/20/17) Endoscopic left radial artery harvest; left saphenous vein harvest, CABG x4 Hx of AKA (above knee amputation) (Chronic 09/07/15) right thigh through femur History of cholecystectomy Pertinent family history: Father Diabetes Hypertension, essential Heart attack Grandfather Prostate cancer Paternal Diabetes Paternal Hypertension, essential Paternal Grandmother Dementia Paternal Family/Other Diabetes Uncle-paternal Hypertension, essential Uncle -paternal Family/Other Cervical cancer Aunt Social history: marital status: smoking status: Never smoker alcohol intake frequency: does not drink substance use type: does not use Medical - H&P: Meds Home Medications Medication Instructions Recorded Confirmed Type loperamide 2 mg capsule 2 mg PO QID PRN #30 cap 05/28/16 03/26/18 Rx cinacalcet 30 mg tablet 30 mg PO HS tab 07/09/17 03/26/18 History atorvastatin 40 mg tablet 40 mg PO QDAY #30 tab 07/20/17 03/26/18 Rx venlafaxine ER 225 mg 225 mg PO QDAY #90 tab 07/20/17 03/26/18 Rx tablet,extended release 24 hr sevelamer carbonate 800 mg tablet 1,600 mg PO TID #180 tab 08/05/17 03/26/18 Rx cetirizine 5 mg tablet 5 mg PO QDAY #30 tab 01/21/18 03/26/18 Rx Blood-Glucose Meter [Blood Glucose 1 strip 5XD 02/18/18 03/08/18 History Monitoring] metoprolol succinate ER 25 mg 25 mg PO QDAY 03/04/18 03/26/18 History capsule sprinkle, ext. release 24 hr midodrine 5 mg tablet 5 mg PO TID PRN tab 03/04/18 03/26/18 History ondansetron HCl 4 mg tablet 4 mg PO Q4H PRN tab 03/08/18 03/26/18 History warfarin 2.5 mg tablet 7.5 mg PO DAILY 03/08/18 03/26/18 History Warfarin [Coumadin] 5 mg PO DAILY 03/09/18 03/26/18 History Dextrose [Glucose Bits] 1 gm PO PRN PRN 03/26/18 03/26/18 History Ferrous Sulfate [Iron] 325 mg PO BID 03/26/18 03/26/18 History Glucagon,Human Recombinant 1 mg PO PRN PRN 03/26/18 03/26/18 History [Glucagon Emergency Kit] Insulin Glargine,Hum.rec.anlog 10 unit SQ ONCE 03/26/18 03/26/18 History [Basaglar Kwikpen U-100] Promethazine [Phenergan] 25 mg PO Q8HP PRN 03/26/18 03/26/18 History QUEtiapine [SEROquel] 25 mg PO HS 03/26/18 03/26/18 History Sulfamethoxazole/Trimethoprim 1 tab PO BID 03/26/18 03/26/18 History [Bactrim Ds] amLODIPine [Norvasc] PO ONCE 03/26/18 History Allergies Allergy/AdvReac Type Severity Reaction Status Date / Time No Known Drug Allergies Allergy Verified 03/25/18 10:42 Medical - H&P: Exam - Constitutional Vitals: Temp Pulse Resp BP Pulse Ox 98.5 F 95 H 10 L 103/92 92 03/26/18 15:55 03/26/18 20:37 03/26/18 20:37 03/26/18 20:31 03/26/18 20:37 Exam: GENERAL: Alert, oriented, in no acute distress, though tends to ramble on answering. HEENT: Atraumatic. Right pupil 6 mm, left pupil 5 mm, equally reactive to direct and indirect light. Conjunctiva clear, no scleral icterus. Hearing grossly intact. Oropharynx with moist mucous membranes, no lip or gum lesions, no pharyngeal erythema or exudate. Tongue midline, palate rises symmetrically. NECK: Supple without meningismus, no thyromegaly RESPIRATORY: Breath sounds clear bilaterally without wheezes or rhonchi. Respiratory effort is unlabored. CHEST: Midline sternotomy scar. Healed, no open areas. Right IJ tunneled catheter without tenderness or overlying erythema. CARDIOVASCULAR: Regular rate and rhythm, no murmur gallop or rub. No peripheral edema. Carotid pulses 2+ without bruit. Pedal pulses 2+. GI: Abdomen soft, nontender, no guarding or rebound. Bowel sounds are present. No hepatosplenomegaly. LYMPHATIC: No cervical or supraclavicular lymphadenopathy MUSCULOSKELETAL: No joint erythema or swelling, normal range of motion in all extremities. Right lower extremity above knee amputation. SKIN: Warm, dry. Sternotomy scars as above. Several ecchymoses on the arms. Skin turgor normal. NEUROLOGIC: Cranial nerves II through XII grossly intact. Muscle mass decreased. Strength 5-/5 in the upper and lower extremities. Sensation intact to light touch bilaterally. PSYCHIATRIC: Alert, oriented to person, place, situation, date; normal mood and affect; appears to pick at the air, attend to external stimuli during the interview. Replies are tangential at times. Speech is not pressured. Medical - H&P: Reslt - Labs CBC & Chem 7: 03/26/18 16:24 03/26/18 16:24 Labs: Short CBC 03/26/18 Range/Units 16:24 WBC 8.4 (4.5-11.0) K/mcL Hgb 7.4 L (12.0-15.0) g/dL Hct 22.3 L (36.0-48.0) % Plt Count 316 (140-440) K/mcL BMP 03/26/18 16:24 Sodium 132 L Potassium 2.8 L* Chloride 92 L Carbon Dioxide 27 BUN 12 Creatinine 1.4 H Glucose 61 L Calcium 8.3 L Liver Function 03/26/18 Range/Units 16:24 Total Bilirubin 0.3 (0.0-1.0) mg/dL AST 9 (0-37) U/l ALT < 5 (0-40) U/l Alkaline Phosphatase 274 H (39-117) U/L Albumin 2.7 L (3.2-5.2) gm/dL Urine 03/26/18 Range/Units 16:02 Urine Color Lanie Urine Appearance Turbid Urine pH 6.0 (5.0-9.0) Ur Specific [place] 1.014 (1.000-1.035) Urine Protein 100 A (NEG) mg/dL Urine Glucose (UA) Negative (NEG) mg/dL Microbiology Blood cultures from 03/25: 05/21 bottles positive for GPC/clusters Medical - H&P: A/P (1) Delirium Current visit: Yes Status: Acute (2) Urinary tract infection Current visit: No Status: Acute (3) CAD (coronary artery disease) Current visit: No Status: Chronic (4) End stage renal disease on dialysis Current visit: No Status: Chronic - Narrative A/P Narrative: 42-year-old female with multiple medical problems including type 2 diabetes, vascular disease, hypertension, end-stage renal disease on dialysis presenting with positive blood cultures in the setting of several days to a few weeks of confusion, hallucinations and recently diagnosed UTI. Urinary tract infection with mental status changes/delirium. Patient does have apparent acute cystitis, less likely upper tract infection based on exam. However she does have alteration in mentation with evidence of delirium, as noted below. Part of that could be secondary to urinary infection. He been started on Bactrim, which may not be effective in end-stage renal disease. Plan: -Inpatient admission -Ceftriaxone for UTI -Follow up cultures Delirium. She has waxing and waning of orientation. She has occasional hallucinations. Appears to be more of a delirium, less likely a primary psychiatric diagnosis. Possible causes include medications, metabolic alterations from dialysis, hypoglycemia, acute infection with urinary tract infection. Also possible bloodstream infection. Plan: Treating infectious sources, replete electrolytes, monitor Positive blood culture. One of 4 bottles obtained during dialysis is positive for gram-positive cocci. Could be a contaminant, however with her indwelling dialysis catheter will need to evaluate for true bloodstream infection rule out catheter infection. Plan: Redraw blood cultures tonight, once her peripherally, one set from the dialysis catheter. Cover with empiric vancomycin until ID and sensitivities are identified. End-stage renal disease. On hemodialysis Thursday, , Thursday. She has hypokalemia and the EGD. That's been repleted. Plan: Nephrology consultation, dialysis per renal. History of hypotension with history of hypertension. Blood pressures been lower lately, is on midodrine as needed. Also has been on anti-hypertensives in the past. Plan: Hold antihypertensives, monitor blood pressure. Rule out bloodstream infection. Type 2 diabetes mellitus with recent hypoglycemia. Lantus has been held due to hypo's. Unclear etiology, could be related to infection. Plan: Controlled carbohydrate/renal diet, sliding scale insulin for now. Coronary artery disease, status post CABG. Recent sternal wound infection. No evidence of current sternal wound infection. No evidence of angina. Plan: Continue medical management. CODE STATUS: Full code. Prophylaxis: The patient's therapeutically anticoagulated warfarin secondary to prior pulmonary embolism.
[2018-03-26] MEDS ORDERED: cefTRIAXone 1 GM in DEXTROSE 5% IN WATER 50 ML IV SCH (21:15)
[2018-03-26] MEDS ORDERED: ONDANSETRON 4 MG/2 ML VIAL IV PRN (21:15)
[2018-03-26] MEDS ORDERED: CINACALCET 30 MG TABLET PO SCH (21:15)
[2018-03-26] MEDS ORDERED: DEXTROSE 31 GM ORAL.SUSP PO PRN (21:15)
[2018-03-26] MEDS ORDERED: PROMETHAZINE 25 MG TABLET PO PRN (21:15)
[2018-03-26] MEDS ORDERED: ACETAMINOPHEN 325 MG TABLET PO PRN (21:15)
[2018-03-26] MEDS ORDERED: VANCOMYCIN PER PHARMACY IV ONE (21:15)
[2018-03-26] MEDS ORDERED: LOPERAMIDE 2 MG CAPSULE PO PRN (21:15)
[2018-03-26] MEDS ORDERED: QUEtiapine 25 MG TABLET PO SCH (21:15)
--- NOTE | 2018-03-26 21:16 | Nephrology Consult Note ---
History of Present Illness - Reason for Consult Patient information: Note initiated : 03/26/18 at 9:13 pm Louisa Cohn is a 42-year-old female admitted on 03/26/18. Consult date: 03/26/18 end stage renal disease, hypokalemia Requesting physician: Rosetta Deal - Chief Complaint Confusion - History of Present Illness Louisa Cohn is a 42-year-old female with end-stage renal disease on chronic hemodialysis (through right IJ tunneled hemodialysis catheter, at [facility], on TTS, followed by Dr. Anton), secondary hyperparathyroidism of renal origin, chronic anemia due to kidney disease, chronic hypotension, coronary artery disease s/p CABG, peripheral vascular disease s/p BKA and renal artery stenosis s/p stenting , diabetes mellitus type 2, admitted on 03/26/18. The patient seen in ED. She is not able to provide history. I obtained information from SNF and dialysis RNs. Review of Systems ROS unobtainable: due to mental status Past History Past medical history: Medical History (Last Reviewed 03/08/18 @ 11:34 by Celia Cohn MD) Hypotension (Chronic) Metabolic bone disease (Chronic) Hyperlipidemia (Chronic) End stage renal disease on dialysis (Chronic) CAD (coronary artery disease) (Chronic) Bowel incontinence (Chronic) Anemia of chronic renal failure (Chronic) Adult health maintenance (Chronic) Amputee, above knee (Chronic) Kidney failure (Chronic ~2006) Hypertension, essential (Chronic ~1999) Congenital heart disease (Chronic) Heart problem (Chronic ~2002) DMII (diabetes mellitus, type 2) (Chronic ~2003) Depression (Chronic ~2005) Anxiety (Chronic ~2003) Past surgical history: Past Surgical History (Last Reviewed 03/08/18 @ 11:34 by Celia Cohn MD) History of laparoscopic cholecystectomy (Acute) H/O colonoscopy (Chronic) History of surgery (Chronic 08/16/15) History of surgery (Chronic 09/03/15) History of surgery (Chronic 08/20/17) Hx of AKA (above knee amputation) (Chronic 09/07/15) Hx of coronary artery bypass graft (Chronic 08/20/17) Status post debridement (Chronic 09/16/17) Past family history: Family History (Last Reviewed 03/08/18 @ 11:34 by Celia Cohn MD) Family/Other Cervical cancer Grandfather Prostate cancer Diabetes Hypertension, essential Grandmother Dementia Father Diabetes Hypertension, essential Heart attack Family/Other Diabetes Hypertension, essential Past social history: Social History (Last Updated 03/08/18 @ 12:35 by Celia Cohn MD) No Social History Section defined Medications and Allergies Home Medications Medication Instructions Recorded Confirmed Type loperamide 2 mg capsule 2 mg PO QID PRN #30 cap 05/28/16 03/26/18 Rx cinacalcet 30 mg tablet 30 mg PO HS tab 07/09/17 03/26/18 History atorvastatin 40 mg tablet 40 mg PO QDAY #30 tab 07/20/17 03/26/18 Rx venlafaxine ER 225 mg 225 mg PO QDAY #90 tab 07/20/17 03/26/18 Rx tablet,extended release 24 hr sevelamer carbonate 800 mg tablet 1,600 mg PO TID #180 tab 08/05/17 03/26/18 Rx cetirizine 5 mg tablet 5 mg PO QDAY #30 tab 01/21/18 03/26/18 Rx Blood-Glucose Meter [Blood Glucose 1 strip 5XD 02/18/18 03/08/18 History Monitoring] metoprolol succinate ER 25 mg 25 mg PO QDAY 03/04/18 03/26/18 History capsule sprinkle, ext. release 24 hr midodrine 5 mg tablet 5 mg PO TID PRN tab 03/04/18 03/26/18 History ondansetron HCl 4 mg tablet 4 mg PO Q4H PRN tab 03/08/18 03/26/18 History warfarin 2.5 mg tablet 7.5 mg PO DAILY 03/08/18 03/26/18 History Warfarin [Coumadin] 5 mg PO DAILY 03/09/18 03/26/18 History Dextrose [Glucose Bits] 1 gm PO PRN PRN 03/26/18 03/26/18 History Ferrous Sulfate [Iron] 325 mg PO BID 03/26/18 03/26/18 History Glucagon,Human Recombinant 1 mg PO PRN PRN 03/26/18 03/26/18 History [Glucagon Emergency Kit] Insulin Glargine,Hum.rec.anlog 10 unit SQ ONCE 03/26/18 03/26/18 History [Basaglar Kwikpen U-100] Promethazine [Phenergan] 25 mg PO Q8HP PRN 03/26/18 03/26/18 History QUEtiapine [SEROquel] 25 mg PO HS 03/26/18 03/26/18 History Sulfamethoxazole/Trimethoprim 1 tab PO BID 03/26/18 03/26/18 History [Bactrim Ds] amLODIPine [Norvasc] PO ONCE 03/26/18 History Allergies Allergy/AdvReac Type Severity Reaction Status Date / Time No Known Drug Allergies Allergy Verified 03/25/18 10:42 Exam - Vital Signs Vital signs: Temp Pulse Resp BP Pulse Ox 98.5 F 95 H 10 L 103/92 92 03/26/18 15:55 03/26/18 20:37 03/26/18 20:37 03/26/18 20:31 03/26/18 20:37 - General Appearance General appearance: appears started age, chronically ill EENT: mucous membranes dry Neck: supple Respiratory: clear Cardiology: no edema, regular rate Gastrointestinal: no tenderness Integumentary: warm and dry Neurologic: confused, disoriented Musculoskeletal: no deformities Psychiatric: cooperative Results - Lab Results 03/26/18 16:24 03/26/18 16:24 Most recent lab results Calcium 8.3 mg/dl (8.6-10.4) L 03/26/18 16:24 Assessment and Plan (1) End stage renal disease on dialysis Louisa Cohn is a 42-year-old female with end-stage renal disease on chronic hemodialysis (through right IJ tunneled hemodialysis catheter, at [facility], on TTS, followed by Dr. Anton), secondary hyperparathyroidism of renal origin, chronic anemia due to kidney disease, chronic hypotension, admitted on 03/26/18. Plan: Continue hemodialysis as inpatient Status: Chronic Priority: Medium (2) Hypokalemia Replaced in ED Status: Acute Priority: Medium (3) Acute encephalopathy Work up in progress Status: Acute
[2018-03-26] MEDS: VANCOMYCIN 1,000 MG in 0.9 % SODIUM CHLORIDE 250 ML IV SCH (22:11)
[2018-03-26] MEDS: cefTRIAXone 1 GM VIAL IV SCH (22:11)
[2018-03-26] MEDS: DEXTROSE 50% 50 ML VIAL IV PRN (22:35)
[2018-03-26] MEDS: INSULIN LISPRO 1 UNIT/0.01 ML UNIT SQ SCH (22:43)
[2018-03-26] MEDS: 0.9 % SODIUM CHLORIDE 10 ML SYRINGE IV SCH (22:49)
[2018-03-26] MEDS: 0.9 % SODIUM CHLORIDE 1,000 ML IV SCH (22:49)
[2018-03-27] MEDS: DEXTROSE 50% 50 ML VIAL IV PRN ×2 (03:13→08:40)
[2018-03-27 06:08] LABS: Basophils # (Auto) 0.1 K/mcL (0.0-0.3); Basophils % (Auto) 0.8 % (0.0-2.0); Eosinophils # (Auto) 0.1 K/mcL (0.0-0.7); Eosinophils % (Auto) 0.9 % (0.0-7.0); Granulocytes % (Auto) 61.5 % (38.0-78.0); Lymphocytes % (Auto) 24.5 % (15.5-49.0); Mean Cell Volume 81.8 fL (80.0-100.0); Mean Corpuscular HGB Conc 32.1 g/dL (31.0-36.0); Mean Corpuscular Hemoglobin 26.2 pg (26.0-34.0); Monocytes % (Auto) 12.3 % (1.0-12.0); Platelet Count 292 K/mcL (140-440); RBC 2.68 M/mcL (4.00-5.20); Red Cell Distribution Width 16.7 % (11.5-14.5)
[2018-03-27 06:15] LABS: ALT/SGPT < 5 U/l (0-40); Albumin 2.7 gm/dL (3.2-5.2); Albumin/Globulin Ratio 0.9 (1.0-2.3); Alkaline Phosphatase 264 U/L (39-117); Bilirubin,Direct < 0.2 mg/dL (0.0-0.3); Blood Urea Nitrogen 13 mg/dl (6-20); Gamma Glutamyl Transpeptidase 55 U/L (5-36); Uric Acid 1.8 mg/dL (2.5-8.0)
--- NOTE | 2018-03-27 06:41 | Nephrology Progress Note ---
Subjective Patient information: Note initiated : 03/27/18 at 6:38 am Louisa Cohn is a 42-year-old female admitted on 03/26/18. Chief Complaint: Confusion Principal diagnosis: Acute encephalopathy; ESRD on HD Pertinent ROS: Confused and disoriented No chest or abdominal pain No shortness of breath Objective - Vital Signs Vital signs: Vital Signs Temp Pulse Pulse Resp BP BP Pulse Ox 03/27/18 03:43 97.1 F 97 H 16 95/43 89 L 03/27/18 00:00 97.7 F 96 H 16 102/64 90 03/26/18 21:10 97.9 F 97 H 16 123/62 90 03/26/18 20:37 95 H 10 L 92 03/26/18 20:31 18 103/92 03/26/18 20:27 20 110/73 03/26/18 20:21 17 60/24 03/26/18 19:47 14 72/48 03/26/18 19:33 16 115/94 03/26/18 19:17 13 85/70 03/26/18 19:05 93 H 24 H 131/115 99 03/26/18 18:45 19 03/26/18 18:16 13 96/42 03/26/18 18:15 13 97/58 03/26/18 18:01 12 97/58 03/26/18 17:31 17 87/57 03/26/18 17:26 21 63/54 03/26/18 17:20 62/40 03/26/18 17:12 13 60/48 03/26/18 17:03 17 38/21 03/26/18 16:50 20 03/26/18 16:01 96 H 16 109/88 92 03/26/18 15:59 98 H 91 03/26/18 15:55 98.5 F 98 H 12 109/88 94 Intake and Output 03/26/18 03/27/18 03/27/18 21:59 05:59 13:59 Intake Total 1006 / 1006 250 / 250 Balance 1006 / 1006 250 / 250 Intake: IV 1006 / 1006 250 / 250 Sodium Chloride 0.9% 1,000 ml @ 487 / 487 100 mls/hr IV .Q10H [facility] Rx#: [id number] Potassium Chloride 40 Meq In 520 / 520 Dextrose 5% in Water 500 ml @ 130 mls/hr IV ONCE ONE Rx#: [id number] Vancomycin 1,000 mg In Sodium 250 / 250 Chloride 0.9% 250 ml @ 250 mls/ hr IV Q12H [facility] Rx#:[id number] Other: Urine Appearance Fem Cath Cloudy Sediment Urine Color Fem Cath Brown Urine Odor Fem Cath Foul Weight 147 lb Intake & Output: Intake & Output 03/26/18 03/27/18 03/27/18 21:59 05:59 13:59 Intake Total 1006 / 1006 250 / 250 Balance 1007 / 1006 250 / 250 Weight 147 lb Intake: IV 1006 / 1007 250 / 250 Sodium Chloride 0.9% 1,000 ml @ 487 / 487 100 mls/hr IV .Q10H [facility] Rx#: [id number] Potassium Chloride 40 Meq In 520 / 520 Dextrose 5% in Water 500 ml @ 130 mls/hr IV ONCE ONE Rx#: [id number] Vancomycin 1,000 mg In Sodium 250 / 250 Chloride 0.9% 250 ml @ 250 mls/ hr IV Q12H [facility] Rx#:[id number] Other: Urine Appearance Fem Cath Cloudy Sediment Urine Color Fem Cath Brown Urine Odor Fem Cath Foul - General Appearance General appearance: chronically ill, frail EENT: mucous membranes moist Neck: supple Respiratory: clear Cardiology: no edema, regular rate, regular rhythm Gastrointestinal: no tenderness Integumentary: warm and dry Neurologic: confused, disoriented Musculoskeletal: no erythema, no cyanosis Psychiatric: cooperative - Lab 03/27/18 04:18 03/27/18 04:18 Most recent lab results Calcium 7.9 mg/dl (8.6-10.4) L 03/27/18 04:18 Phosphorus 0.5 mg/dL (2.7-4.5) L 03/27/18 04:18 Magnesium 1.5 mg/dL (1.6-2.5) L 03/27/18 04:18 Assessment and Plan (1) End stage renal disease on dialysis Louisa Cohn is a 42-year-old female with end-stage renal disease on chronic hemodialysis (through right IJ tunneled hemodialysis catheter, at [facility], on TTS, followed by Dr. Anton), secondary hyperparathyroidism of renal origin, chronic anemia due to kidney disease, chronic hypotension, coronary artery disease s/p CABG, peripheral vascular disease s/p BKA and renal artery stenosis s/p stenting , diabetes mellitus type 2, admitted on 03/26/18. Progress: Acute encephalopathy, not changed. Hypokalemia, resolved. Hypotension, improved. Plan: Continue hemodialysis as inpatient. The patient seen and evaluated during hemodialysis at 12:02. BP is low. Midodrine 10 mg PO x 1 ordered. Status: Chronic Priority: Medium (2) Acute encephalopathy Please see above Status: Acute Priority: Medium (3) Hypokalemia Status: Resolved Priority: Medium (4) Anemia in ESRD (end-stage renal disease) Aranesp 40 mcg IV x 1 ordered on 03/27/18 for Hb 7.0 Status: Chronic Priority: Medium
[2018-03-27] MEDS ORDERED: PHYTONADIONE 1 MG in 0.9 % SODIUM CHLORIDE 50 ML IV ONE (07:15)
[2018-03-27] MEDS ORDERED: VANCOMYCIN PER PHARMACY IV SCH ×2 (07:30→11:45)
[2018-03-27] MEDS ORDERED: POTASSIUM PHOSPHATE 40 MEQ in DEXTROSE 5% IN WATER 500 ML IV ONE (07:30)
--- NOTE | 2018-03-27 07:38 | Cat Scan Report ---
CLINICAL INFORMATION: Hallucinations. Altered mental status. Markedly elevated INR COMPARISON: None. TECHNIQUE: Axial noncontrast-enhanced images through the brain. FINDINGS: No acute intracranial hemorrhage. No intra-axial hematoma. No subdural or subarachnoid hemorrhage. There is white matter abnormality which is abnormal for age. There is low density in the white matter of both frontal lobes. There is also low density within the right external capsule and lentiform nucleus. No mass effect. Findings are probably not acute but comparison with any prior examinations would be helpful. White matter abnormality appears to be limited to the frontal lobes but this may be secondary to small vessel ischemic change. I have reviewed prior CT scans of the abdomen and pelvis in this patient has extensive atherosclerotic disease. This suggests diabetes in this young patient. No localized mass effect. No midline shift. No evidence for acute abnormality. Brainstem and cerebellum are negative. Basilar cisterns are negative. There is calcification of the intracranial vertebral arteries and internal carotid arteries. IMPRESSION: 1. No acute intracranial hemorrhage. 2. No acute abnormality. 3. Vascular calcification consistent with atherosclerotic disease 4. Predominantly white matter abnormality in both frontal lobes is probably related to small vessel ischemic abnormality. The exam was performed using radiation dose optimization techniques including, but not limited to, automated exposure control, adjustment of the mA and/or kV according to patient size and use of iterative reconstruction technique. Interpreted and Authenticated by: Zion Solo 03/27/18
[2018-03-27] MEDS: 0.9 % SODIUM CHLORIDE 10 ML SYRINGE IV SCH ×3 (07:59→22:36)
[2018-03-27] MEDS ORDERED: SEVELAMER 800 MG TABLET PO SCH (08:00)
[2018-03-27] MEDS ORDERED: FERROUS SULFATE 325 MG TABLET PO SCH (08:00)
[2018-03-27 08:45] LABS: Estimated Average Glucose(eAG) 128 mg/dL; Hemoglobin A1C 6.1 % HGB (4.0-6.0)
[2018-03-27] MEDS ORDERED: VENLAFAXINE 75 MG CAP.XL.24H PO SCH (09:00)
[2018-03-27] MEDS ORDERED: NEUTRA PHOS 1 PACKET PO SCH (09:00)
[2018-03-27] MEDS ORDERED: CETIRIZINE 10 MG TABLET PO SCH (09:00)
[2018-03-27] MEDS ORDERED: DARBEPOETIN ALFA 40 MCG/ML VIAL IV ONE (09:00)
[2018-03-27] MEDS: INSULIN LISPRO 1 UNIT/0.01 ML UNIT SQ SCH ×4 (09:03→23:16)
[2018-03-27] MEDS: cefTRIAXone 1 GM VIAL IV SCH (10:11)
--- NOTE | 2018-03-27 10:59 | Internal Med Progress Note ---
Medical - PN: Subj Patient information: Note initiated : 03/27/18 at 10:56 am Service Date, if different from initiated Date: [] Patient: Louisa Cohn a 42 y/o F admitted on 03/26/18 for pos blood culture, confusion, hallucinations. Chief Complaint: f/u UTI, delirium Interval history: 03/26 Ms. Cohn is a 42 year old F with a history of type 2 diabetes, peripheral and cardiovascular disease, end-stage renal disease on dialysis, hypertension with periods of hypotension who presents to the ED after having blood cultures become positive. The patient was seen in the emergency room yesterday for hypoglycemia, is found to have floridly positive urine with significant pyuria and bacteriuria. She was started on Bactrim and then went to hemodialysis for her normal session as an outpatient yesterday. During dialysis she had blood cultures drawn. Patient seems to describe her having chills during hemodialysis (though later says she gets chilled chronically) and that may have been the reason for the blood cultures being drawn. Today one of those bottles of the 2 sets is positive for gram-positive cocci in clusters and she was sent back to the ED for evaluation. On top of the hypoglycemia, urinary tract infection, the patient has also had confusion for the last few weeks. She has been having hallucinations, sometimes realizing she is seeing things that are incorrect, and other times not. notes that she picks at things, sometimes appears to be attending to external stimuli. Often times during conversation and he replies she tends to ramble off tangentially. She gets hemodialysis on Tuesdays and Saturdays and not missed any sessions. She gets dialysis via a tunneled right IJ catheter. Patient states that she occasionally feels dizzy and lightheaded. She describes feeling chilled, wants to get into the car and have the heater turned up to get warm, though states that this is chronic and has not necessarily changed. She thinks she may have had blood pressure medications changed recently, not sure about others. She's had problems with low blood pressure recently. She denies dysuria. She has no abdominal pain. She has chronic nausea as well as chronic loose stools which were unchanged. Her appetite is decreased. She has been having trouble with low glucoses, and her Lantus has been stopped. The patient currently resides at a skilled facility for further strengthening. She's had several hospitalizations, including coronary bypass surgery in August, subsequent sternal wound infection, pulmonary embolism, hospitalization at this facility for nausea and vomiting, status post cholecystectomy last month. In the emergency department, her white count was normal, she was hypokalemic. She has evidence of ongoing urinary tract infection. She has evidence of ongoing confusion and some hallucinations. She is being admitted for treatment of urinary tract infection, delirium as well as further evaluation of possible bloodstream infection. 03/27 Still confused, still with hallucinations and attending to external stimuli, though no she's a [place] notes that she is here because she is ill and does respond appropriately at times. Denies any dyspnea, denies nausea, denies fever. No lightheadedness. Has remained hypoglycemic, requiring dextrose, has not received insulin. INR critically elevated at [address] of the head is negative for acute process, though some chronic bifrontal changes.. - Constitutional Vitals: Vital Signs Temp Pulse Resp BP Pulse Ox 98.1 F 84 16 112/62 94 03/27/18 08:00 03/27/18 08:00 03/27/18 08:00 03/27/18 08:00 03/27/18 08:00 Period Temp Pulse Resp BP Sys/Brenner Pulse Ox Last 24 Hr 97.1 F-98.5 F 84-98 10-24 38-131/21-115 89-99 Intake and Output 03/26/18 03/27/18 03/27/18 21:59 05:59 13:59 Intake Total 1007 / 1007 250 / 250 Balance 1007 / 1007 250 / 250 Weight 147 lb Intake & Output: Intake & Output 03/26/18 03/27/18 03/27/18 21:59 05:59 13:59 Intake Total 1007 / 1007 250 / 250 Balance 1007 / 1007 250 / 250 Weight 147 lb Intake: IV 1007 / 1007 250 / 250 Sodium Chloride 0.9% 1,000 ml @ 487 / 487 100 mls/hr IV .Q10H [facility] Rx#: [id number] Potassium Chloride 40 Meq In 520 / 520 Dextrose 5% in Water 500 ml @ 130 mls/hr IV ONCE ONE Rx#: [id number] Vancomycin 1,000 mg In Sodium 250 / 250 Chloride 0.9% 250 ml @ 250 mls/ hr IV Q12H [facility] Rx#:[id number] Other: Urine Appearance Fem Cath Cloudy Sediment Urine Color Fem Cath Brown Urine Odor Fem Cath Foul Exam: General: [place], restless, occasionally picking at things. Chest: Clear, unlabored Cardiovascular: Regular, no murmur Abdomen: Soft, nontender, active bowel sounds Musculoskeletal: Right stump intact, no cyanosis or clubbing remaining extremities Neuro: Alert, oriented to self, place and situation when directly asked. Moves all extremities equally. Psych: Rambles at times, some tangential thoughts, apparent hallucinations. Medical - PN: Obj Da - Labs CBC & Chem 7: 03/27/18 04:18 03/27/18 04:18 Labs: Abnormal Lab Results 03/27/18 03/27/18 03/27/18 04:18 04:18 04:18 RBC 2.68 L Hgb 7.0 L* Hct 21.9 L RDW 16.7 H [place] % (Auto) 12.3 H [place] # (Auto) 1.0 H PT 69.6 H INR 8.1 H* Sodium Potassium Chloride Creatinine 1.7 H Glucose Hemoglobin A1c 6.1 H Uric Acid 1.8 L Calcium 7.9 L Phosphorus 0.5 L Magnesium 1.5 L GGT 55 H Alkaline Phosphatase 264 H Total Protein 5.7 L Albumin 2.7 L Albumin/Globulin Ratio 0.9 L Urine Protein Urine Occult Blood Ur Leukocyte Esterase Urine RBC Urine WBC Hyaline Casts Ur Amphetamines Screen 03/26/18 03/26/18 03/26/18 16:24 16:24 16:15 RBC 2.76 L Hgb 7.4 L Hct 22.3 L RDW 17.0 H [place] % (Auto) 12.4 H [place] # (Auto) 1.0 H PT INR Sodium 132 L Potassium 2.8 L* Chloride 92 L Creatinine 1.4 H Glucose 61 L Hemoglobin A1c Uric Acid Calcium 8.3 L Phosphorus Magnesium GGT Alkaline Phosphatase 274 H Total Protein Albumin 2.7 L Albumin/Globulin Ratio 0.8 L Urine Protein Urine Occult Blood Ur Leukocyte Esterase Urine RBC Urine WBC Hyaline Casts Ur Amphetamines Screen Suspect positive A 03/26/18 16:02 RBC Hgb Hct RDW [place] % (Auto) [place] # (Auto) PT INR Sodium Potassium Chloride Creatinine Glucose Hemoglobin A1c Uric Acid Calcium Phosphorus Magnesium GGT Alkaline Phosphatase Total Protein Albumin Albumin/Globulin Ratio Urine Protein 100 A Urine Occult Blood 0.03 A Ur Leukocyte Esterase 500 A Urine RBC 32 H Urine WBC > 182 H Hyaline Casts 12 H Ur Amphetamines Screen Meds: Medications Acetaminophen (Tylenol) 650 mg PO Q6HP PRN PRN Reason: PAIN/FEVER > 101 Atorvastatin Calcium (Lipitor) 40 mg PO HS [facility] Ceftriaxone Sodium (Rocephin) 1 gm IV Q24H [facility] Last Admin: 03/27/18 10:11 Dose: 1 gm Cetirizine HCl (Zyrtec) 5 mg PO DAILY [facility] Last Admin: 03/27/18 10:02 Dose: 5 mg Cinacalcet (Sensipar) 30 mg PO HS [facility] Last Admin: 03/26/18 22:05 Dose: 30 mg Dextrose (Dextrose 50%) 0 ml IV UD PRN PRN Reason: Hypoglycemia Last Admin: 03/27/18 08:40 Dose: 25 ml Diagnostic Test (Pha) (Accu-Chek) 1 each FS [facility] Last Admin: 03/27/18 09:10 Dose: 1 each Ferrous Sulfate (Ferrous Sulfate) 325 mg PO BIDCC [facility] Last Admin: 03/27/18 07:52 Dose: 325 mg Glucose (Insta-Glucose) 15 gm PO PRN PRN PRN Reason: Hypoglycemia Sodium Chloride (Sodium Chloride 0.9%) 1,000 mls @ 100 mls/hr IV .Q10H [facility] Last Admin: 03/26/18 22:49 Dose: 100 mls/hr Vancomycin HCl 1,000 mg/ (Sodium Chloride) 250 mls @ 250 mls/hr IV Q12H [facility] Last Infusion: 03/26/18 23:17 Dose: Infused Potassium Phosphate 40 meq/ (Dextrose) 509.0909 mls @ 127.273 mls/hr IV ONCE ONE Stop: 03/27/18 11:29 Last Admin: 03/27/18 10:10 Dose: 127.273 mls/hr Insulin Human Lispro (Humalog) 0 unit SQ [facility]; Protocol Last Admin: 03/27/18 09:03 Dose: Not Given Loperamide HCl (Imodium) 2 mg PO QIDP PRN PRN Reason: loose stool Ondansetron HCl (Zofran) 4 mg IV Q6HP PRN PRN Reason: Nausea And Vomiting Promethazine HCl (Phenergan) 25 mg PO Q8HP PRN PRN Reason: Nausea Quetiapine Fumarate (Seroquel) 25 mg PO HS [facility] Last Admin: 03/26/18 22:05 Dose: 25 mg Sevelamer Carbonate (Renvela) 1,600 mg PO TIDCC [facility] Last Admin: 03/27/18 09:22 Dose: Not Given Sodium Chloride (Saline Flush) 10 ml IV Q8 [facility] Last Admin: 03/27/18 07:59 Dose: 10 ml Vancomycin HCl (Vancomycin Per Pharmacy) 1 order IV UD [facility] Venlafaxine HCl (Effexor Xr) 225 mg PO DAILY [facility] Last Admin: 03/27/18 10:02 Dose: 225 mg Warfarin Sodium (Coumadin Per Pharmacy) 1 order PO UD [facility] Medical - PN: A/P (1) Delirium Status: Acute Current Visit: Yes (2) Urinary tract infection Status: Acute Current Visit: No (3) CAD (coronary artery disease) Status: Chronic Current Visit: No (4) End stage renal disease on dialysis Status: Chronic Current Visit: No - Narrative A/P Narrative: 42-year-old female with multiple medical problems including type 2 diabetes, vascular disease, hypertension, end-stage renal disease on dialysis presenting with positive blood cultures in the setting of several days to a few weeks of confusion, hallucinations and recently diagnosed UTI. Urinary tract infection with mental status changes/delirium. Patient does have apparent acute cystitis, less likely upper tract infection based on exam. She has alteration in mentation with evidence of delirium, as noted below. Part of that could be secondary to urinary infection. She been started on Bactrim on day prior to admission, which may not be effective in end-stage renal disease. Plan: Continue ceftriaxone, follow-up urine culture from admission. Attempted to add urine culture on to sample obtained in ED on 03/25. Delirium. She has waxing and waning of orientation and hallucinations. Appears to be more of a delirium, less likely a primary psychiatric diagnosis. Possible causes include medications, metabolic alterations from dialysis, hypoglycemia, acute infection with urinary tract infection. Also possible bloodstream infection. Plan: Treating infectious sources, replete electrolytes, monitor; change her medicine to telemetry status for intensity of nursing care Positive blood culture. One of 4 bottles obtained during dialysis 03/25 is positive for gram-positive cocci. Could be a contaminant, however with her indwelling dialysis catheter will need to evaluate for true bloodstream infection rule out catheter infection. Plan: Follow up blood cultures drawn on the evening of admission, including one set from her dialysis catheter. Continue empiric vancomycin and follow up ID and sensitivities. Coagulopathy. INR critically elevated in the 8 range. No evidence of bleeding. She is on warfarin secondary to pulmonary embolism in August of this year. Plan: Hold warfarin, 1 mg of IV vitamin K, bed rest and fall risk precautions, follow INR in morning. End-stage renal disease. On hemodialysis Thursday, , Thursday. She has hypokalemia and the ED. Plan: Nephrology consultation, dialysis per renal; replete lytes PRN History of hypotension with history of hypertension. Blood pressures been lower lately, is on midodrine as needed. Also has been on anti-hypertensives in the past. Plan: Hold antihypertensives, monitor blood pressure. Rule out bloodstream infection. Type 2 diabetes mellitus with recent hypoglycemia. Lantus has been held due to hypo's. Unclear etiology, could be related to infection. Plan: Controlled carbohydrate/renal diet, sliding scale insulin for now; add dextrose to IV fluids. Coronary artery disease, status post CABG. Recent sternal wound infection. No evidence of current sternal wound infection. No evidence of angina. Plan: Continue medical management. Medical - PN: Qual - VTE Deep Vein Thrombosis/Pulmonary Embolism Present on Admission: No
[2018-03-27] MEDS ORDERED: LOPERAMIDE 2 MG CAPSULE PO PRN (11:45)
[2018-03-27] MEDS ORDERED: PROMETHAZINE 25 MG TABLET PO PRN (11:45)
[2018-03-27] MEDS ORDERED: ONDANSETRON 4 MG/2 ML VIAL IV PRN (11:45)
[2018-03-27] MEDS ORDERED: ACETAMINOPHEN 325 MG TABLET PO PRN (11:45)
[2018-03-27] MEDS ORDERED: DEXTROSE 31 GM ORAL.SUSP PO PRN (11:45)
[2018-03-27] MEDS ORDERED: DEXTROSE 50% 50 ML VIAL IV PRN (11:45)
[2018-03-27] MEDS ORDERED: MIDODRINE 5 MG TABLET PO ONE (12:02)
--- NOTE | 2018-03-27 13:32 | Internal Med Progress Note ---
Medical - PN: Subj Patient information: Note initiated : 03/27/18 at 1:22 pm Service Date, if different from initiated Date: [] Patient: Louisa Cohn a 42 y/o F admitted on 03/26/18 for pos blood culture, confusion, hallucinations. Chief Complaint: [] Interval history: Ms. Cohn is a 42 year old F with a history of type 2 diabetes, peripheral and cardiovascular disease, end-stage renal disease on dialysis, hypertension with periods of hypotension who presents to the ED after having blood cultures become positive. The patient was seen in the emergency room yesterday for hypoglycemia, is found to have floridly positive urine with significant pyuria and bacteriuria. She was started on Bactrim and then went to hemodialysis for her normal session as an outpatient yesterday. During dialysis she had blood cultures drawn. Patient seems to describe her having chills during hemodialysis (though later says she gets chilled chronically) and that may have been the reason for the blood cultures being drawn. Today one of those bottles of the 2 sets is positive for gram-positive cocci in clusters and she was sent back to the ED for evaluation. On top of the hypoglycemia, urinary tract infection, the patient has also had confusion for the last few weeks. She has been having hallucinations, sometimes realizing she is seeing things that are incorrect, and other times not. notes that she picks at things, sometimes appears to be attending to external stimuli. Often times during conversation and he replies she tends to ramble off tangentially. She gets hemodialysis on Tuesdays and Saturdays and not missed any sessions. She gets dialysis via a tunneled right IJ catheter. Patient states that she occasionally feels dizzy and lightheaded. She describes feeling chilled, wants to get into the car and have the heater turned up to get warm, though states that this is chronic and has not necessarily changed. She thinks she may have had blood pressure medications changed recently, not sure about others. She's had problems with low blood pressure recently. She denies dysuria. She has no abdominal pain. She has chronic nausea as well as chronic loose stools which were unchanged. Her appetite is decreased. She has been having trouble with low glucoses, and her Lantus has been stopped. The patient currently resides at a skilled facility for further strengthening. She's had several hospitalizations, including coronary bypass surgery in August, subsequent sternal wound infection, pulmonary embolism, hospitalization at this facility for nausea and vomiting, status post cholecystectomy last month. In the emergency department, her white count was normal, she was hypokalemic. She has evidence of ongoing urinary tract infection. She has evidence of ongoing confusion and some hallucinations. She is being admitted for treatment of urinary tract infection, delirium as well as further evaluation of possible bloodstream infection. 03/27 Still confused, still with hallucinations and attending to external stimuli, though no she's a [place] notes that she is here because she is ill and does respond appropriately at times. Denies any dyspnea, denies nausea, denies fever. No lightheadedness. Has remained hypoglycemic, requiring dextrose, has not received insulin. INR critically elevated at [address] of the head is negative for acute process, though some chronic bifrontal changes.. 03/28 - Constitutional Vitals: Vital Signs Temp Pulse Resp BP Pulse Ox 98.2 F 94 H 16 97/62 94 03/27/18 11:53 03/27/18 13:15 03/27/18 08:00 03/27/18 13:15 03/27/18 08:00 Period Temp Pulse Resp BP Sys/Brenner Pulse Ox Last 24 Hr 97.1 F-98.5 F 84-98 10-24 38-131/21-115 89-99 Intake and Output 03/26/18 03/27/18 03/27/18 21:59 05:59 13:59 Intake Total 1007 / 1007 250 / 250 50.1 / 50.1 Balance 1007 / 1007 250 / 250 50.1 / 50.1 Weight 66.678 kg 66.678 kg Patient Weight 03/28/18 05:59 Weight 66.678 kg Intake & Output: Intake & Output 03/26/18 03/27/18 03/27/18 21:59 05:59 13:59 Intake Total 1007 / 1007 250 / 250 50.1 / 50.1 Balance 1007 / 1007 250 / 250 50.1 / 50.1 Weight 66.678 kg 66.678 kg Intake: IV 1007 / 1007 250 / 250 50.1 / 50.1 Sodium Chloride 0.9% 1,000 ml @ 487 / 487 100 mls/hr IV .Q10H [facility] Rx#: [id number] Potassium Chloride 40 Meq In 520 / 520 Dextrose 5% in Water 500 ml @ 130 mls/hr IV ONCE ONE Rx#: [id number] Vancomycin 1,000 mg In Sodium 250 / 250 Chloride 0.9% 250 ml @ 250 mls/ hr IV Q12H [facility] Rx#:[id number] Other: Urine Appearance Fem Cath Cloudy Sediment Urine Color Fem Cath Brown Urine Odor Fem Cath Foul Exam: General: Alert, Awake, No acute Distress HEENT: EOMI, supple neck CV: RRR, No murmurs, normal s1/s2 Pulm: Clear b/l, no wheezing/rhonchi/rales Abd: soft, nontender, +BS x4 Ext: no clubbing/cyanosis, Right BKA Neuro: Alert, oriented to self, place and situation when directly asked. Moves all extremities equally. Skin: warm/dry Psych: Rambles at times, some tangential thoughts, apparent hallucinations. Medical - PN: Obj Da - Labs CBC & Chem 7: 03/27/18 04:18 03/27/18 04:18 Labs: Abnormal Lab Results 03/27/18 03/27/18 03/27/18 04:18 04:18 04:18 RBC 2.68 L Hgb 7.0 L* Hct 21.9 L RDW 16.7 H [place] % (Auto) 12.3 H [place] # (Auto) 1.0 H PT 69.6 H INR 8.1 H* Sodium Potassium Chloride Creatinine 1.7 H Glucose Hemoglobin A1c 6.1 H Uric Acid 1.8 L Calcium 7.9 L Phosphorus 0.5 L Magnesium 1.5 L GGT 55 H Alkaline Phosphatase 264 H Total Protein 5.7 L Albumin 2.7 L Albumin/Globulin Ratio 0.9 L Urine Protein Urine Occult Blood Ur Leukocyte Esterase Urine RBC Urine WBC Hyaline Casts Ur Amphetamines Screen 03/26/18 03/26/18 03/26/18 16:24 16:24 16:15 RBC 2.76 L Hgb 7.4 L Hct 22.3 L RDW 17.0 H [place] % (Auto) 12.4 H [place] # (Auto) 1.0 H PT INR Sodium 132 L Potassium 2.8 L* Chloride 92 L Creatinine 1.4 H Glucose 61 L Hemoglobin A1c Uric Acid Calcium 8.3 L Phosphorus Magnesium GGT Alkaline Phosphatase 274 H Total Protein Albumin 2.7 L Albumin/Globulin Ratio 0.8 L Urine Protein Urine Occult Blood Ur Leukocyte Esterase Urine RBC Urine WBC Hyaline Casts Ur Amphetamines Screen Suspect positive A 03/26/18 16:02 RBC Hgb Hct RDW [place] % (Auto) [place] # (Auto) PT INR Sodium Potassium Chloride Creatinine Glucose Hemoglobin A1c Uric Acid Calcium Phosphorus Magnesium GGT Alkaline Phosphatase Total Protein Albumin Albumin/Globulin Ratio Urine Protein 100 A Urine Occult Blood 0.03 A Ur Leukocyte Esterase 500 A Urine RBC 32 H Urine WBC > 182 H Hyaline Casts 12 H Ur Amphetamines Screen Meds: Medications Acetaminophen (Tylenol) 650 mg PO Q6HP PRN PRN Reason: PAIN/FEVER > 101 Atorvastatin Calcium (Lipitor) 40 mg PO HS [facility] Ceftriaxone Sodium (Rocephin) 1 gm IV Q24H [facility] Cetirizine HCl (Zyrtec) 5 mg PO DAILY [facility] Cinacalcet (Sensipar) 30 mg PO HS [facility] Dextrose (Dextrose 50%) 0 ml IV UD PRN PRN Reason: Hypoglycemia Diagnostic Test (Pha) (Accu-Chek) 1 each FS ACHS [facility] Last Admin: 03/27/18 12:15 Dose: 1 each Ferrous Sulfate (Ferrous Sulfate) 325 mg PO BIDCC [facility] Glucose (Insta-Glucose) 15 gm PO PRN PRN PRN Reason: Hypoglycemia Vancomycin HCl 1,000 mg/ (Sodium Chloride) 250 mls @ 250 mls/hr IV Q12H [facility] Dextrose/Sodium Chloride (Dextrose 5%-Ns Iv Solution) 1,000 mls @ 75 mls/hr IV .[id number] [facility] Insulin Human Lispro (Humalog) 0 unit SQ ACHS [facility]; Protocol Loperamide HCl (Imodium) 2 mg PO QIDP PRN PRN Reason: loose stool Ondansetron HCl (Zofran) 4 mg IV Q6HP PRN PRN Reason: Nausea And Vomiting Promethazine HCl (Phenergan) 25 mg PO Q8HP PRN PRN Reason: Nausea Quetiapine Fumarate (Seroquel) 25 mg PO HS [facility] Sodium Chloride (Saline Flush) 10 ml IV Q8 [facility] Vancomycin HCl (Vancomycin Per Pharmacy) 1 order IV UD [facility] Venlafaxine HCl (Effexor Xr) 225 mg PO DAILY [facility] Warfarin Sodium (Coumadin Per Pharmacy) 1 order PO UD [facility] Medical - PN: A/P - Time Spent With Patient Total time spent is greater than 50% in coordination of care (as documented) at patient's floor/unit and/or counseling patient: - Narrative A/P Narrative: A: *UTI with AMS/delirium: *Encephalopathy (Delirium & Hallucinations): -She has waxing and waning of orientation and hallucinations. Appears to be more of a delirium, less likely a primary psychiatric diagnosis. -causes include medications, substance abuse,metabolic alterations from dialysis, hypoglycemia, acute infection with urinary tract infection; also possible bloodstream infection. -UDS with Meth *Positive blood culture: One of 4 bottles obtained during dialysis 03/25 is positive for gram-positive cocci. Could be a contaminant, however with her indwelling dialysis catheter will need to evaluate for true bloodstream infection rule out catheter infection. *Coagulopathy: 2/2 warfarin, She is on warfarin secondary to pulmonary embolism in August of this year. - INR critically elevated in the 8 range. No evidence of bleeding. *ESRD (Thursday, , Thursday): *Anemia, chronic *h/o hypotension: on midodrine prn. was on antihypertensives in the past *DM w/hypoglycemia: Unclear etiology, could be related to infection. *CAD w/CABG and recent sternal wound infection (No evidence of current sternal wound infection): *Hypokalemia: improved P: -continue ceftriaxone, follow-up urine culture from admission. Attempted to add urine culture on to sample obtained in ED on 03/25. -Treating infectious sources, replete electrolytes, monitor; -Follow up blood cultures drawn on the evening of admission, including one set from her dialysis catheter. Continue empiric vancomycin and follow up ID and sensitivities. -Hold warfarin, 1 mg of IV vitamin K, bed rest and fall risk precautions, follow INR in morning -HD per Nephro -Hold antihypertensives, monitor blood pressure. Rule out bloodstream infection. -Controlled carbohydrate/renal diet, lantus held, sliding scale insulin for now ; add dextrose to IV fluids. -may need CT chest/abd/pelv to look for source of infection(?abscess) -monitor H&H, aranesp given per NEphro -ppx: warfarin per pharm Medical - PN: Qual - VTE Deep Vein Thrombosis/Pulmonary Embolism Present on Admission: No
[2018-03-27] MEDS ORDERED: LORazepam 2 MG/ML VIAL IV PRN (13:40)
[2018-03-27] MEDS: DEXTROSE 5%-NS 1,000 ML IV SCH (15:46)
[2018-03-27] MEDS: VANCOMYCIN 1,000 MG in 0.9 % SODIUM CHLORIDE 250 ML IV SCH ×2 (16:26→19:51)
[2018-03-27] MEDS: 0.9 % SODIUM CHLORIDE 1,000 ML IV SCH (16:26)
[2018-03-27] MEDS: FERROUS SULFATE 325 MG TABLET PO SCH (18:03)
[2018-03-27] MEDS ORDERED: VANCOMYCIN 1,000 MG in 0.9 % SODIUM CHLORIDE 250 ML IV ONE (19:00)
[2018-03-27] MEDS ORDERED: QUEtiapine 25 MG TABLET PO SCH (21:00)
[2018-03-27] MEDS ORDERED: CINACALCET 30 MG TABLET PO SCH (21:00)
[2018-03-27] MEDS ORDERED: ATORVASTATIN 20 MG TABLET PO SCH ×2 (21:00)
[2018-03-27] MEDS ORDERED: VANCOMYCIN 1,000 MG in 0.9 % SODIUM CHLORIDE 250 ML IV SCH (22:00)
[2018-03-28] MEDS: DEXTROSE 5%-NS 1,000 ML IV SCH (03:52)
[2018-03-28] MEDS: 0.9 % SODIUM CHLORIDE 10 ML SYRINGE IV SCH ×2 (05:07→14:16)
[2018-03-28 05:44] LABS: Basophils # (Auto) 0 K/mcL (0.0-0.3); Basophils % (Auto) 0.6 % (0.0-2.0); Eosinophils # (Auto) 0.1 K/mcL (0.0-0.7); Granulocytes % (Auto) 68.2 % (38.0-78.0); Lymphocytes # (Auto) 1.4 K/mcL (1.5-4.8); Lymphocytes % (Auto) 16.8 % (15.5-49.0); Mean Cell Volume 81.6 fL (80.0-100.0); Mean Corpuscular HGB Conc 32.4 g/dL (31.0-36.0); Mean Corpuscular Hemoglobin 26.4 pg (26.0-34.0); Monocytes # (Auto) 1.1 K/mcL (0.1-0.9); Monocytes % (Auto) 13.4 % (1.0-12.0); Platelet Count 290 K/mcL (140-440); Red Cell Distribution Width 16.1 % (11.5-14.5)
[2018-03-28 06:01] LABS: ALT/SGPT < 5 U/l (0-40); Albumin 2.7 gm/dL (3.2-5.2); Albumin/Globulin Ratio 0.9 (1.0-2.3); Alkaline Phosphatase 258 U/L (39-117); Bilirubin,Direct < 0.2 mg/dL (0.0-0.3); Blood Urea Nitrogen 2 mg/dl (6-20); Gamma Glutamyl Transpeptidase 49 U/L (5-36)
[2018-03-28] MEDS ORDERED: POTASSIUM PHOSPHATE 20 MEQ in DEXTROSE 5% IN WATER 250 ML IV ONE (07:09)
--- NOTE | 2018-03-28 07:17 | Internal Med Progress Note ---
Medical - PN: Subj Patient information: Note initiated : 03/28/18 at 7:01 am Service Date, if different from initiated Date: [] Patient: Louisa Cohn a 42 y/o F admitted on 03/26/18 for pos blood culture, confusion, hallucinations. Chief Complaint: [] Interval history: Ms. Cohn is a 42 year old F with a history of type 2 diabetes, peripheral and cardiovascular disease, end-stage renal disease on dialysis, hypertension with periods of hypotension who presents to the ED after having blood cultures become positive. The patient was seen in the emergency room yesterday for hypoglycemia, is found to have floridly positive urine with significant pyuria and bacteriuria. She was started on Bactrim and then went to hemodialysis for her normal session as an outpatient yesterday. During dialysis she had blood cultures drawn. Patient seems to describe her having chills during hemodialysis (though later says she gets chilled chronically) and that may have been the reason for the blood cultures being drawn. Today one of those bottles of the 2 sets is positive for gram-positive cocci in clusters and she was sent back to the ED for evaluation. On top of the hypoglycemia, urinary tract infection, the patient has also had confusion for the last few weeks. She has been having hallucinations, sometimes realizing she is seeing things that are incorrect, and other times not. notes that she picks at things, sometimes appears to be attending to external stimuli. Often times during conversation and he replies she tends to ramble off tangentially. She gets hemodialysis on Tuesdays and Saturdays and not missed any sessions. She gets dialysis via a tunneled right IJ catheter. Patient states that she occasionally feels dizzy and lightheaded. She describes feeling chilled, wants to get into the car and have the heater turned up to get warm, though states that this is chronic and has not necessarily changed. She thinks she may have had blood pressure medications changed recently, not sure about others. She's had problems with low blood pressure recently. She denies dysuria. She has no abdominal pain. She has chronic nausea as well as chronic loose stools which were unchanged. Her appetite is decreased. She has been having trouble with low glucoses, and her Lantus has been stopped. The patient currently resides at a skilled facility for further strengthening. She's had several hospitalizations, including coronary bypass surgery in August, subsequent sternal wound infection, pulmonary embolism, hospitalization at this facility for nausea and vomiting, status post cholecystectomy last month. In the emergency department, her white count was normal, she was hypokalemic. She has evidence of ongoing urinary tract infection. She has evidence of ongoing confusion and some hallucinations. She is being admitted for treatment of urinary tract infection, delirium as well as further evaluation of possible bloodstream infection. 03/27 Still confused, still with hallucinations and attending to external stimuli, though no she's a [place] notes that she is here because she is ill and does respond appropriately at times. Denies any dyspnea, denies nausea, denies fever. No lightheadedness. Has remained hypoglycemic, requiring dextrose, has not received insulin. INR critically elevated at [address] of the head is negative for acute process, though some chronic bifrontal changes.. 03/28 Lethargic this morning. Did get some IV Ativan last night. Poor sleep last night did not appear to get any sleep until after 4. She does answers my questions, although sometimes slow to respond, Poor functional status resides at a nursing facility wheelchair-bound recently prior to that was using a walker we believe. Mostly bedbound per notes from February admission (cholecystitis) Review of Systems: denies headache/fever/chills/nausea/vomiting/chest or abdominal pain/cough/ dyspnea/diarrhea. Otherwise see above. - Constitutional Vitals: Vital Signs Temp Pulse Resp BP Pulse Ox 98.0 F 102 H 18 107/64 92 03/28/18 04:00 03/28/18 04:00 03/28/18 04:00 03/28/18 04:00 03/28/18 04:00 Period Temp Pulse Resp BP Sys/Brenner Pulse Ox Last 24 Hr 98 F-98.3 F 84-111 16-24 82-137/39-95 92-94 Intake and Output 03/27/18 03/28/18 03/28/18 21:59 05:59 13:59 Intake Total 1689.0909 / 1689.0909 908 / 908 Output Total 0 / 0 Balance 1689.0909 / 1689.0909 908 / 908 Weight 66.043 kg Intake & Output: Intake & Output 03/27/18 03/28/18 03/28/18 21:59 05:59 13:59 Intake Total 1689.0909 / 1689.0909 908 / 908 Output Total 0 / 0 Balance 1689.0909 / 1689.0909 908 / 908 Weight 66.043 kg Intake: IV 1509.0909 / 1509.0909 908 / 908 Dextrose 5%-Ns IV Solution 1, 908 / 908 000 ml @ 75 mls/hr IV .[id number] [facility] Rx#:[id number] Oral 180 / 180 Output: Hemodialysis UF 0 / 0 Other: Stool Size Large Stool Color Brown Stool Consistency Liquid # of times incontinent of 1 Bowels Exam: General: lethargic but arrousable, HEENT: EOMI, supple neck CV: RRR, No murmurs, normal s1/s2 Pulm: Clear b/l, no wheezing/rhonchi/rales Abd: soft, nontender, +BS x4 Ext: no clubbing/cyanosis, Right BKA Neuro: lethargic, oriented to self/Time/President, but could not tell me place. Moves all extremities equally. 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 Medical - PN: Obj Da - Labs CBC & Chem 7: 03/28/18 03:41 03/28/18 03:41 Labs: Abnormal Lab Results 03/28/18 03/28/18 03/28/18 03:51 03:41 03:41 RBC 2.60 L Hgb 6.9 L* Hct 21.2 L RDW 16.1 H [place] % (Auto) 13.4 H Lymph # (Auto) 1.4 L [place] # (Auto) 1.1 H PT 46.0 H INR 4.8 H Sodium Potassium Chloride BUN 2 L Creatinine Glucose 106 H Hemoglobin A1c Uric Acid 1.0 L Calcium 7.4 L Phosphorus 0.8 L Magnesium GGT 49 H Alkaline Phosphatase 258 H Total Protein 5.7 L Albumin 2.7 L Albumin/Globulin Ratio 0.9 L Urine Protein Urine Occult Blood Ur Leukocyte Esterase Urine RBC Urine WBC Hyaline Casts Ur Amphetamines Screen 03/27/18 03/27/18 03/27/18 04:18 04:18 04:18 RBC 2.68 L Hgb 7.0 L* Hct 21.9 L RDW 16.7 H [place] % (Auto) 12.3 H Lymph # (Auto) [place] # (Auto) 1.0 H PT 69.6 H INR 8.1 H* Sodium Potassium Chloride BUN Creatinine 1.7 H Glucose Hemoglobin A1c 6.1 H Uric Acid 1.8 L Calcium 7.9 L Phosphorus 0.5 L Magnesium 1.5 L GGT 55 H Alkaline Phosphatase 264 H Total Protein 5.7 L Albumin 2.7 L Albumin/Globulin Ratio 0.9 L Urine Protein Urine Occult Blood Ur Leukocyte Esterase Urine RBC Urine WBC Hyaline Casts Ur Amphetamines Screen 03/26/18 03/26/18 03/26/18 16:24 16:24 16:15 RBC 2.76 L Hgb 7.4 L Hct 22.3 L RDW 17.0 H [place] % (Auto) 12.4 H Lymph # (Auto) [place] # (Auto) 1.0 H PT INR Sodium 132 L Potassium 2.8 L* Chloride 92 L BUN Creatinine 1.4 H Glucose 61 L Hemoglobin A1c Uric Acid Calcium 8.3 L Phosphorus Magnesium GGT Alkaline Phosphatase 274 H Total Protein Albumin 2.7 L Albumin/Globulin Ratio 0.8 L Urine Protein Urine Occult Blood Ur Leukocyte Esterase Urine RBC Urine WBC Hyaline Casts Ur Amphetamines Screen Suspect positive A 03/26/18 16:02 RBC Hgb Hct RDW [place] % (Auto) Lymph # (Auto) [place] # (Auto) PT INR Sodium Potassium Chloride BUN Creatinine Glucose Hemoglobin A1c Uric Acid Calcium Phosphorus Magnesium GGT Alkaline Phosphatase Total Protein Albumin Albumin/Globulin Ratio Urine Protein 100 A Urine Occult Blood 0.03 A Ur Leukocyte Esterase 500 A Urine RBC 32 H Urine WBC > 182 H Hyaline Casts 12 H Ur Amphetamines Screen Meds: Medications Acetaminophen (Tylenol) 650 mg PO Q6HP PRN PRN Reason: PAIN/FEVER > 101 Atorvastatin Calcium (Lipitor) 40 mg PO HS [facility] Last Admin: 03/27/18 21:33 Dose: 40 mg Ceftriaxone Sodium (Rocephin) 1 gm IV Q24H [facility] Cetirizine HCl (Zyrtec) 5 mg PO DAILY [facility] Cinacalcet (Sensipar) 30 mg PO HS [facility] Last Admin: 03/27/18 21:36 Dose: 30 mg Dextrose (Dextrose 50%) 0 ml IV UD PRN PRN Reason: Hypoglycemia Diagnostic Test (Pha) (Accu-Chek) 1 each FS ACHS [facility] Last Admin: 03/27/18 21:32 Dose: 1 each Ferrous Sulfate (Ferrous Sulfate) 325 mg PO BIDCC [facility] Last Admin: 03/27/18 18:03 Dose: 325 mg Glucose (Insta-Glucose) 15 gm PO PRN PRN PRN Reason: Hypoglycemia Dextrose/Sodium Chloride (Dextrose 5%-Ns Iv Solution) 1,000 mls @ 75 mls/hr IV .[id number] [facility] Last Admin: 03/28/18 03:52 Dose: 75 mls/hr Insulin Human Lispro (Humalog) 0 unit SQ ACHS [facility]; Protocol Last Admin: 03/27/18 21:32 Dose: Not Given Loperamide HCl (Imodium) 2 mg PO QIDP PRN PRN Reason: loose stool Lorazepam (Ativan) 1 mg IV Q2-4HP PRN PRN Reason: withdrawal/anxiety Last Admin: 03/27/18 23:14 Dose: 1 mg Ondansetron HCl (Zofran) 4 mg IV Q6HP PRN PRN Reason: Nausea And Vomiting Promethazine HCl (Phenergan) 25 mg PO Q8HP PRN PRN Reason: Nausea Quetiapine Fumarate (Seroquel) 25 mg PO HS [facility] Last Admin: 03/27/18 21:33 Dose: 25 mg Sodium Chloride (Saline Flush) 10 ml IV Q8 [facility] Last Admin: 03/28/18 05:07 Dose: Not Given Vancomycin HCl (Vancomycin Per Pharmacy) 1 order IV [facility] [place] Venlafaxine HCl (Effexor Xr) 225 mg PO DAILY [facility] Warfarin Sodium (Coumadin Per Pharmacy) 1 order PO UD [facility] Medical - PN: A/P - Time Spent With Patient Total time spent is greater than 50% in coordination of care (as documented) at patient's floor/unit and/or counseling patient: - Narrative A/P Narrative: A: *UTI with AMS/delirium: *Encephalopathy (Delirium & Hallucinations): -She has waxing/waning of orientation and hallucinations. Appears to be more of a delirium, less likely a primary psychiatric diagnosis. -DDx include medications/metabolic alterations from dialysis/hypoglycemia/ acute infection w/urinary tract infection or possible bloodstream infection. -CT brain no acute *Positive blood culture: One of 4 bottles obtained during dialysis 03/25 is positive for gram-positive cocci. Could be a contaminant, however with her indwelling dialysis catheter will need to evaluate for true bloodstream infection rule out catheter infection. -f/u BC on 03/26 negative thus far -did have cholecystectomy 1 month ago. *h/o PE 08/2017: has been on warfarin *Coagulopathy: 2/2 warfarin - INR critically elevated in the 8 range. Vit K given -INR now 4.8 *Anemia, acute on chronic: FOBT negative, bruising to RUE (?hematoma) *ESRD (Thursday, , Thursday): *h/o hypotension: on midodrine prn. was on antihypertensives in the past. currently low-normal *DM w/hypoglycemia: Unclear etiology, could be related to infection. was on lantus 10u at home *CAD w/CABG and recent sternal wound infection (No evidence of current sternal wound infection): *Hypokalemia/phos/natremia: improved *Depression: P: -continue ceftriaxone/vanco, pending UC/BC -Replete electrolytes, monitor -Follow up blood cultures drawn on the evening of admission, including one set from her dialysis catheter. -HD per Nephro -monitor blood pressure. Rule out bloodstream infection and other source of infection - given recent cholecystectomy will image abd/pelvis -u/s RUE to eval for hematoma -ADA diet, lantus held, SSI for now; add dextrose to IV fluids. -D5NS d/c -may need CT chest/abd/pelv to look for source of infection(?abscess) -monitor H&H, aranesp given per NEphro, transfuse 1 unit today -ppx: warfarin per pharm (komal held) Medical - PN: Qual - VTE Deep Vein Thrombosis/Pulmonary Embolism Present on Admission: No
[2018-03-28] MEDS ORDERED: 0.9 % SODIUM CHLORIDE 250 ML IV SCH ×2 (07:30→10:30)
--- NOTE | 2018-03-28 07:57 | Nephrology Progress Note ---
Subjective Patient information: Note initiated : 03/28/18 at 7:55 am Louisa Cohn is a 42-year-old female admitted on 03/26/18. Chief Complaint: Confusion Principal diagnosis: Acute encephalopathy; ESRD on HD Pertinent ROS: Limited due to altered mental status Confused and disoriented Drowsy Right shoulder bruising No chest or abdominal pain No shortness of breath Objective - Vital Signs Vital signs: Vital Signs Temp Pulse Pulse Pulse Resp BP BP 03/28/18 04:00 98.0 F 102 H 18 107/64 03/28/18 00:00 98.3 F 111 H 20 105/66 03/27/18 20:00 98.0 F 100 H 18 100/62 03/27/18 16:00 98.0 F 24 H 131/86 03/27/18 14:55 98 F 97 H 100/39 03/27/18 14:30 96 H 137/95 03/27/18 14:15 95 H 112/84 03/27/18 14:00 94 H 122/92 03/27/18 13:45 92 H 126/61 03/27/18 13:30 95 H 110/79 03/27/18 13:15 94 H 97/62 03/27/18 13:00 96 H 90/75 03/27/18 12:45 96 H 86/77 03/27/18 12:30 94 H 100/58 03/27/18 12:15 96 H 90/62 03/27/18 12:00 94 H 95/69 03/27/18 11:53 98.2 F 94/72 03/27/18 11:45 95 H 94/72 03/27/18 11:30 95 H 104/72 03/27/18 11:15 95 H 85/64 03/27/18 11:00 94 H 82/66 03/27/18 10:55 98.3 F 95 H 90/47 03/27/18 08:00 98.1 F 84 16 112/62 Pulse Ox 03/28/18 04:00 92 03/28/18 00:00 92 03/27/18 20:00 93 03/27/18 16:00 94 03/27/18 14:55 03/27/18 14:30 03/27/18 14:15 03/27/18 14:00 03/27/18 13:45 03/27/18 13:30 03/27/18 13:15 03/27/18 13:00 03/27/18 12:45 03/27/18 12:30 03/27/18 12:15 03/27/18 12:00 03/27/18 11:53 03/27/18 11:45 03/27/18 11:30 03/27/18 11:15 03/27/18 11:00 03/27/18 10:55 03/27/18 08:00 94 Intake and Output 03/27/18 03/28/18 03/28/18 21:59 05:59 13:59 Intake Total 1689.0909 / 1689.0909 908 / 908 Output Total 0 / 0 Balance 1689.0909 / 1689.0909 908 / 908 Intake: IV 1509.0909 / 1509.0909 908 / 908 Dextrose 5%-Ns IV Solution 1, 908 / 908 000 ml @ 75 mls/hr IV .[id number] [facility] Rx#:[id number] Oral 180 / 180 Output: Hemodialysis UF 0 / 0 Other: Stool Size Large Stool Color Brown Stool Consistency Liquid # of times incontinent of 1 Bowels Weight 145 lb 9.6 oz Intake & Output: Intake & Output 03/27/18 03/28/18 03/28/18 21:59 05:59 13:59 Intake Total 1689.0909 / 1689.0909 908 / 908 Output Total 0 / 0 Balance 1689.0909 / 1689.0909 908 / 908 Weight 145 lb 9.6 oz Intake: IV 1509.0909 / 1509.0909 908 / 908 Dextrose 5%-Ns IV Solution 1, 908 / 908 000 ml @ 75 mls/hr IV .[id number] [facility] Rx#:[id number] Oral 180 / 180 Output: Hemodialysis UF 0 / 0 Other: Stool Size Large Stool Color Brown Stool Consistency Liquid # of times incontinent of 1 Bowels - General Appearance General appearance: chronically ill, frail EENT: mucous membranes moist Neck: supple Respiratory: clear Cardiology: no edema Gastrointestinal: no tenderness Integumentary: warm and dry, ecchymotic (right shoulder) Neurologic: confused, disoriented Musculoskeletal: no erythema, no cyanosis Psychiatric: cooperative - Lab 03/28/18 03:41 03/28/18 03:41 Most recent lab results Calcium 7.4 mg/dl (8.6-10.4) L 03/28/18 03:41 Phosphorus 0.8 mg/dL (2.7-4.5) L 03/28/18 03:41 Magnesium 1.7 mg/dL (1.6-2.5) 03/28/18 03:41 Assessment and Plan (1) End stage renal disease on dialysis Louisa Cohn is a 42-year-old female with end-stage renal disease on chronic hemodialysis (through right IJ tunneled hemodialysis catheter, at [facility], on TTS, followed by Dr. Anton), secondary hyperparathyroidism of renal origin, chronic anemia due to kidney disease, chronic hypotension, coronary artery disease s/p CABG, peripheral vascular disease s/p BKA and renal artery stenosis s/p stenting , diabetes mellitus type 2, admitted on 03/26/18. Progress: Acute encephalopathy with hallucinations, not changed after hemodialysis yesterday, unclear etiology. Drowsiness, new, likely due to Lorazepam administration. Acute blood loss anemia due to right shoulder hematoma associated with over therapeutic INR on chronic anemia due to ESRD, 1 unit PRBC ordered by hospitalist. Hypokalemia, resolved. Hypotension, improved. Plan: Continue hemodialysis as inpatient. Status: Chronic Priority: Medium (2) Acute encephalopathy Acute encephalopathy with hallucinations, not changed after hemodialysis yesterday, unclear etiology. Drowsiness, new, likely due to Lorazepam administration. Status: Acute Priority: Medium (3) Anemia in ESRD (end-stage renal disease) Acute blood loss anemia due to right shoulder hematoma associated with over therapeutic INR on chronic anemia due to ESRD. Aranesp 40 mcg IV x 1 ordered on 03/27/18. 1 unit PRBC ordered by hospitalist on 03/28/18. Status: Chronic Priority: Medium
[2018-03-28] MEDS: INSULIN LISPRO 1 UNIT/0.01 ML UNIT SQ SCH ×2 (08:02→12:19)
[2018-03-28] MEDS ORDERED: CETIRIZINE 10 MG TABLET PO SCH (09:00)
[2018-03-28] MEDS ORDERED: cefTRIAXone 1 GM VIAL IV SCH (09:00)
[2018-03-28] MEDS ORDERED: VENLAFAXINE 75 MG CAP.XL.24H PO SCH (09:00)
[2018-03-28] MEDS ORDERED: NEUTRA PHOS 1 PACKET PO SCH (09:00)
[2018-03-28] MEDS: FERROUS SULFATE 325 MG TABLET PO SCH (10:15)
--- NOTE | 2018-03-28 11:08 | Ultrasound Report ---
CLINICAL INFORMATION: Swelling and bruising of the right upper extremity TECHNIQUE: Grayscale and color flow Doppler spectral imaging COMPARISON: None. FINDINGS: Right upper extremity is markedly swollen. There is edema throughout the right upper extremity with fluid between muscle bundles. No well-defined discrete fluid collection or solid mass. No shadowing abnormalities. No discrete abscess identified. Findings may be secondary to edema or cellulitis. A vascular study was not performed. The brachial artery and veins are normal. Antecubital vessels are patent. IMPRESSION: 1. Swelling of the right upper extremity 2. Diffuse edema or cellulitis with fluid between muscle bundles. No focal fluid collection or mass Interpreted and Authenticated by: Zion Solo 03/28/18
[2018-03-28 11:12] LABS: C-Reactive Protein 3.5 mg/dl (0.0-0.8)
[2018-03-28 11:31] LABS: Vitamin B12 623.8 pg/ml (232-1245)
--- NOTE | 2018-03-28 12:01 | Cat Scan Report ---
CLINICAL INFORMATION: Right upper extremity swelling. Altered mental status. Possible sepsis. TECHNIQUE: Axial images through the chest, abdomen, pelvis. Repeat imaging through the right upper extremity. Sagittally and coronally reformatted images. Intravenous contrast material was not administered. This patient has a history of renal failure and is not scheduled for dialysis in the next 24 hours COMPARISON: Multiple previous examinations. Most recent CT scans are dated 03/08/2018 and 02/19/2018 FINDINGS: There is subcutaneous and intramuscular edema within the right upper extremity. It is above the elbow. There is subcutaneous edema within the right lateral chest wall. No well-defined discrete soft tissue mass identified. There is gas dissecting within fascial planes. Appearance is consistent with necrotizing fasciitis. The patient's nurse was notified of this diagnosis, 03/28/2018, 1145. There is no focal abscess. There are bilateral pleural effusions, left larger than right. No septations are loculations identified. There is mild left lower lobe volume loss or infiltrate. Lungs are otherwise negative. There is extensive calcified atherosclerotic disease with dense coronary artery calcification. No pericardial effusion. No pathologic hilar or mediastinal lymphadenopathy. No pathologic axillary adenopathy. Liver is negative to the limits of noncontrast enhanced examination. No detectable mass. Liver contour is smooth. There are surgical clips in the gallbladder fossa. No dilated bile ducts. Spleen is negative. No splenomegaly. Pancreas is atrophic. No pancreatic mass or peripancreatic abnormality. The adrenal glands are negative Kidneys are present. No hydronephrosis. No detectable mass. Uterus is present. There is an intrauterine device within the uterus. Caudal portion of the intrauterine device extends into the myometrium and may penetrate slightly into the retroperitoneal fat. This is unchanged. No adnexal mass. No free pelvic fluid. No intra-abdominal abscess. No pneumoperitoneum. No biliary or portal venous gas. : Is negative. No diverticulitis. No colonic mass identified. No mechanical small bowel obstruction. No evidence for appendicitis. There is extensive atherosclerotic disease. There is no abdominal aortic aneurysm. Lumbar spine is negative. No endplate destruction. No evidence for discitis. Thoracic spine is negative. Patient has undergone previous median sternotomy. Sacrum and pelvis are negative. No fracture. No lytic lesion. Hips are negative. No fracture. No evidence for avascular necrosis IMPRESSION: 1. Soft tissue edema within the right upper extremity and right lateral chest wall. There is soft tissue gas consistent with necrotizing fasciitis 2. Bilateral pleural effusions, left larger than right 3. Intrauterine device appears to penetrate the myometrium, unchanged since 03/08/2018 4. No intra-abdominal abscess Interpreted and Authenticated by: Zion Solo 03/28/18
--- NOTE | 2018-03-28 12:36 | Orthopedic Consult Note ---
History of Present Illness - HPI Patient information: Note initiated : 03/28/18 at 12:36 pm Service Date, if different from initiated Date: [] Patient: Louisa Cohn 42 y/o F admitted on 03/26/18 for pos blood culture, confusion, hallucinations. Chief Complaint: [right arm swelling and bruising ] Consult date: 03/28/18 Consult reason: other History of present illness: Patient is a 42 year old female with a PMH significant for type 2 diabetes, peripheral and cardiovascular disease, ESRD on dialysis. Her HPI is gathered from prior charting and Dr. Calderon as the patient is mentally altered this morning. She was seen in the ER on 03/27/18 for hypoglycemia with a profoundly positive UA. She was started on antibiotics and sent to dialysis. Blood cultures were drawn and found to be positive for gram positive cocci. She had felt confused, dizzy and light headed as well as having fevers and chills. During my exam this morning, the nurse informed me that an IV was attempted yesterday on her right arm which had to be done with ultrasound. This morning the arm is quite swollen and she developed two large bruises. She was taken for a CT scan where gas was seen within the fascial planes. Review of Systems ROS unobtainable: due to mental status Medications and Allergies Home Medications Medication Instructions Recorded Confirmed Type loperamide 2 mg capsule 2 mg PO QID PRN #30 cap 05/28/16 03/26/18 Rx cinacalcet 30 mg tablet 30 mg PO HS tab 07/09/17 03/26/18 History atorvastatin 40 mg tablet 40 mg PO QDAY #30 tab 07/20/17 03/26/18 Rx venlafaxine ER 225 mg 225 mg PO QDAY #90 tab 07/20/17 03/26/18 Rx tablet,extended release 24 hr sevelamer carbonate 800 mg tablet 1,600 mg PO TID #180 tab 08/05/17 03/26/18 Rx cetirizine 5 mg tablet 5 mg PO QDAY #30 tab 01/21/18 03/26/18 Rx Blood-Glucose Meter [Blood Glucose 1 strip 5XD 02/18/18 03/08/18 History Monitoring] metoprolol succinate ER 25 mg 25 mg PO QDAY 03/04/18 03/26/18 History capsule sprinkle, ext. release 24 hr midodrine 5 mg tablet 5 mg PO TID PRN tab 03/04/18 03/26/18 History ondansetron HCl 4 mg tablet 4 mg PO Q4H PRN tab 03/08/18 03/26/18 History warfarin 2.5 mg tablet 7.5 mg PO DAILY 03/08/18 03/26/18 History Warfarin [Coumadin] 5 mg PO DAILY 03/09/18 03/26/18 History Dextrose [Glucose Bits] 1 gm PO PRN PRN 03/26/18 03/26/18 History Ferrous Sulfate [Iron] 325 mg PO BID 03/26/18 03/26/18 History Glucagon,Human Recombinant 1 mg PO PRN PRN 03/26/18 03/26/18 History [Glucagon Emergency Kit] Insulin Glargine,Hum.rec.anlog 10 unit SQ ONCE 03/26/18 03/26/18 History [Basaglar Kwikpen U-100] Promethazine [Phenergan] 25 mg PO Q8HP PRN 03/26/18 03/26/18 History QUEtiapine [SEROquel] 25 mg PO HS 03/26/18 03/26/18 History Sulfamethoxazole/Trimethoprim 1 tab PO BID 03/26/18 03/26/18 History [Bactrim Ds] Allergies Allergy/AdvReac Type Severity Reaction Status Date / Time No Known Drug Allergies Allergy Verified 03/25/18 10:42 Assessment and Plan (1) Sepsis possible subcutaneous infection of right arm: -CT imaging reveals gas in fascial plane. Overall picture concerning for necrotizing fasciitis vs gas gangrene though WBC was WNL 2 days ago. From an orthopedic standpoint, this is more of a general surgery procedure if it is deemed necessary for an emergent radical fasciotomy and debridement. We recommend further evaluation from general surgery to determine if surgery is necessary. Status: Acute Exam Vital signs: Temp Pulse Resp BP Pulse Ox 98.2 F 96 H 16 103/82 95 03/28/18 08:00 03/28/18 08:00 03/28/18 08:00 03/28/18 08:00 03/28/18 08:00 Constitutional: moderate distress Musculoskeletal: other (right arm grossly swollen from neck to wrist. Soft compartments. Large ecchymotic area anterior upper arm and inner upper arm as well as forearm. No blisters or abrasions. Radial pulse 1+. Full PROM elbow and shoulder)
[2018-03-28] MEDS ORDERED: CLINDAMYCIN 900 MG in DEXTROSE 5% IN WATER 50 ML IV SCH (13:00)
--- NOTE | 2018-03-28 13:18 | Transfer Summary ---
Transfer Discharge Sum: Prov Patient information: Note initiated : 03/28/18 at 1:16 pm Service Date, if different from initiated Date: [] Patient: Louisa Cohn 42 y/o F admitted on 03/26/18 for pos blood culture, confusion, hallucinations. Chief Complaint: [] Date of admission: 03/26/18 21:10 Discharge Date: 03/28/18 Primary care physician: Jerrica Joseph DO Consults: 03/26/18 Consult to Physician [CONS] Stat Comment: Consulting Provider: Rosetta Deal Reason For Exam: Physician to Consult 03/26/18 21:15 Consult to Physician [CONS] Routine Comment: Consulting Provider: Ghazal Banegas Reason For Exam: Physician to Consult 03/28/18 Consult to Physician [CONS] Urgent Comment: Consulting Provider: Zion Joy Reason For Exam: Physician to Consult oscar zenon RUMadai Transfer Discharge Sum: Diag - Discharge Diagnosis (1) Necrotizing fasciitis Status: Acute Transfer Discharge Sum: Med - Medications Active and Home Medications: Home Medications loperamide 2 mg capsule 2 mg PO QID PRN #30 cap 05/28/16 [Rx Confirmed 03/26/18] cinacalcet 30 mg tablet 30 mg PO HS tab 07/09/17 [History Confirmed 03/26/18] atorvastatin 40 mg tablet 40 mg PO QDAY #30 tab 07/20/17 [Rx Confirmed 03/26/18] venlafaxine ER 225 mg tablet,extended release 24 hr 225 mg PO QDAY #90 tab 07/20 [Rx Confirmed 03/26/18] sevelamer carbonate 800 mg tablet 1,600 mg PO TID #180 tab 08/05/17 [Rx Confirmed 03/26/18] cetirizine 5 mg tablet 5 mg PO QDAY #30 tab 01/21/18 [Rx Confirmed 03/26/18] Blood-Glucose Meter [Blood Glucose Monitoring] 1 strip 5XD 02/18/18 [History Confirmed 03/08/18] metoprolol succinate ER 25 mg capsule sprinkle, ext. release 24 hr 25 mg PO QDAY 03/04/18 [History Confirmed 03/26/18] midodrine 5 mg tablet 5 mg PO TID PRN tab 03/04/18 [History Confirmed 03/26/18] ondansetron HCl 4 mg tablet 4 mg PO Q4H PRN tab 03/08/18 [History Confirmed 02/02] warfarin 2.5 mg tablet 7.5 mg PO DAILY 03/08/18 [History Confirmed 03/26/18] Warfarin [Coumadin] 5 mg PO DAILY 03/09/18 [History Confirmed 03/26/18] Dextrose [Glucose Bits] 1 gm PO PRN PRN 03/26/18 [History Confirmed 03/26/18] Ferrous Sulfate [Iron] 325 mg PO BID 03/26/18 [History Confirmed 03/26/18] Glucagon,Human Recombinant [Glucagon Emergency Kit] 1 mg PO PRN PRN 03/26/18 [ History Confirmed 03/26/18] Insulin Glargine,Hum.rec.anlog [Basaglar Kwikpen U-100] 10 unit SQ ONCE [History Confirmed 03/26/18] Promethazine [Phenergan] 25 mg PO Q8HP PRN 03/26/18 [History Confirmed 03/26/18] QUEtiapine [SEROquel] 25 mg PO HS 03/26/18 [History Confirmed 03/26/18] Sulfamethoxazole/Trimethoprim [Bactrim Ds] 1 tab PO BID 03/26/18 [History Confirmed 03/26/18] Active Medications Acetaminophen (Tylenol) 650 mg PO Q6HP PRN PRN Reason: PAIN/FEVER > 101 Atorvastatin Calcium (Lipitor) 40 mg PO [facility] Last Admin: 03/27/18 21:33 Dose: 40 mg Ceftriaxone Sodium (Rocephin) 1 gm IV Q24H [facility] Last Admin: 03/28/18 12:34 Dose: 1 gm Cinacalcet (Sensipar) 30 mg PO [facility] Last Admin: 03/27/18 21:36 Dose: 30 mg Dextrose (Dextrose 50%) 0 ml IV UD PRN PRN Reason: Hypoglycemia Diagnostic Test (Pha) (Accu-Chek) 1 each FS ACHS [facility] Last Admin: 03/28/18 12:18 Dose: 1 each Ferrous Sulfate (Ferrous Sulfate) 325 mg PO BIDCC [facility] Last Admin: 03/28/18 10:15 Dose: 325 mg Glucose (Insta-Glucose) 15 gm PO PRN PRN PRN Reason: Hypoglycemia Sodium Chloride (Sodium Chloride 0.9%) 250 mls @ 20 mls/hr IV .[id number] [facility] Stop: 03/28/18 19:59 Sodium Chloride (Sodium Chloride 0.9%) 250 mls @ 20 mls/hr IV .[id number] [facility] Clindamycin Phosphate 900 mg/ (Dextrose) 56 mls @ 100 mls/hr IV Q8H [facility] Last Admin: 03/28/18 12:34 Dose: 100 mls/hr Insulin Human Lispro (Humalog) 0 unit SQ ACHS [facility]; Protocol Last Admin: 03/28/18 12:19 Dose: Not Given Loperamide HCl (Imodium) 2 mg PO QIDP PRN PRN Reason: loose stool Ondansetron HCl (Zofran) 4 mg IV Q6HP PRN PRN Reason: Nausea And Vomiting Potassium/Phosphorus/Sodium (Neutra Phos) 2 packet PO BID [facility] Stop: 03/29/18 21:01 Last Admin: 03/28/18 10:16 Dose: 2 packet Promethazine HCl (Phenergan) 25 mg PO Q8HP PRN PRN Reason: Nausea Quetiapine Fumarate (Seroquel) 25 mg PO HS [facility] Last Admin: 03/27/18 21:33 Dose: 25 mg Sodium Chloride (Saline Flush) 10 ml IV Q8 [facility] Last Admin: 03/28/18 05:07 Dose: Not Given Vancomycin HCl (Vancomycin Per Pharmacy) 1 order IV UD [facility] Venlafaxine HCl (Effexor Xr) 150 mg PO DAILY [facility] Warfarin Sodium (Coumadin Per Pharmacy) 1 order PO UD [facility] Transfer Discharge Sum: Hosp Hospital course: Ms. Cohn is a 42 year old F with a history of type 2 diabetes, peripheral and cardiovascular disease, end-stage renal disease on dialysis, hypertension with periods of hypotension who presents to the ED after having blood cultures become positive. The patient was seen in the emergency room yesterday for hypoglycemia, is found to have floridly positive urine with significant pyuria and bacteriuria. She was started on Bactrim and then went to hemodialysis for her normal session as an outpatient yesterday. During dialysis she had blood cultures drawn. Patient seems to describe her having chills during hemodialysis (though later says she gets chilled chronically) and that may have been the reason for the blood cultures being drawn. Today one of those bottles of the 2 sets is positive for gram-positive cocci in clusters and she was sent back to the ED for evaluation. On top of the hypoglycemia, urinary tract infection, the patient has also had confusion for the last few weeks. She has been having hallucinations, sometimes realizing she is seeing things that are incorrect, and other times not. notes that she picks at things, sometimes appears to be attending to external stimuli. Often times during conversation and he replies she tends to ramble off tangentially. She gets hemodialysis on Tuesdays and Saturdays and not missed any sessions. She gets dialysis via a tunneled right IJ catheter. Patient states that she occasionally feels dizzy and lightheaded. She describes feeling chilled, wants to get into the car and have the heater turned up to get warm, though states that this is chronic and has not necessarily changed. She thinks she may have had blood pressure medications changed recently, not sure about others. She's had problems with low blood pressure recently. She denies dysuria. She has no abdominal pain. She has chronic nausea as well as chronic loose stools which were unchanged. Her appetite is decreased. She has been having trouble with low glucoses, and her Lantus has been stopped. The patient currently resides at a skilled facility for further strengthening. She's had several hospitalizations, including coronary bypass surgery in August, subsequent sternal wound infection, pulmonary embolism, hospitalization at this facility for nausea and vomiting, status post cholecystectomy last month. In the emergency department, her white count was normal, she was hypokalemic. She has evidence of ongoing urinary tract infection. She has evidence of ongoing confusion and some hallucinations. She is being admitted for treatment of urinary tract infection, delirium as well as further evaluation of possible bloodstream infection. 03/27 Still confused, still with hallucinations and attending to external stimuli, though no she's a [place] notes that she is here because she is ill and does respond appropriately at times. Denies any dyspnea, denies nausea, denies fever. No lightheadedness. Has remained hypoglycemic, requiring dextrose, has not received insulin. INR critically elevated at [address] of the head is negative for acute process, though some chronic bifrontal changes.. 03/28 Lethargic this morning. Did get some IV Ativan last night. Poor sleep last night did not appear to get any sleep until after 4. She does answers my questions, although sometimes slow to respond, Poor functional status resides at a nursing facility wheelchair-bound recently prior to that was using a walker we believe. Mostly bedbound per notes from February admission (cholecystitis) Overnight patient's right upper arm became swollen with increasing swelling throughout the morning. No color change. There was some ecchymosis over the right lateral upper aspect and initially suspect may be there was a hematoma from her elevated INR on admission which led to ultrasound of the upper extremity which showed no hematoma. Further imaging including CT chest abdomen for occult infection which revealed gas dissecting the fascial planes in the right upper chest. Discussed the case with cardiothoracic surgeon (Rafaela) and then subsequent powertrain engineer (Arabella) with accepting the patient. Patient's vital signs stable this time patient will travel by air. She did receive hemodialysis yesterday. - Time Spent with Patient Total time spent providing and/or coordinating transfer services: Greater than 30 minutes Transfer Discharge Sum: Exam - Constitutional Vitals: Vital Signs Temp Pulse Pulse Resp BP BP Pulse Ox 03/28/18 08:00 98.2 F 96 H 16 103/82 95 03/28/18 04:00 98.0 F 102 H 18 107/64 92 03/28/18 00:00 98.3 F 111 H 20 105/66 92 03/27/18 20:00 98.0 F 100 H 18 100/62 93 03/27/18 16:00 98.0 F 24 H 131/86 94 03/27/18 14:55 98 F 97 H 100/39 03/27/18 14:30 96 H 137/95 03/27/18 14:15 95 H 112/84 03/27/18 14:00 94 H 122/92 03/27/18 13:45 92 H 126/61 03/27/18 13:30 95 H 110/79 Intake and Output 03/27/18 03/28/18 03/28/18 21:59 05:59 13:59 Intake Total 1689.0909 / 1689.0909 908 / 908 Output Total 0 / 0 Balance 1689.0909 / 1689.0909 908 / 908 Intake: IV 1509.0909 / 1509.0909 908 / 908 Dextrose 5%-Ns IV Solution , 8 / 908 000 ml @ 75 mls/hr IV .[id number] [facility] Rx#:[id number] Oral 180 / 180 Output: Hemodialysis UF 0 / 0 Other: Stool Size Large Stool Color Brown Green Stool Consistency Liquid # of times incontinent of 1 Bowels Weight 66.043 kg Transfer Discharge Sum: Data Procedures and tests throughout hospitalization: Pending Orders 03/26/18 Consult to Physician [CONS] Stat 03/26/18 16:02 Urine Culture Stat 03/26/18 20:13 Resuscitation Status Routine 03/26/18 20:34 Blood Culture Stat 03/26/18 21:15 Admit as Inpatient Routine Condition Routine IV Insertion/Management QSHIFT Intake and Output qshiftio Notify Provider .routine Up to chair PRN VTE Risk: Assessment ONCE Vital Signs Q4 Weight Monitoring QHS Consult to Physician [CONS] Routine RD to Adjust Diet/Supplements as Needed Routine 03/27/18 08:03 Hemodialysis Treatment .ROUTINE 03/27/18 11:45 metal buffer CONT Acetaminophen [Tylenol] 650 mg PO Q6HP PRN Dextrose 50% See Dose Instructions IV UD PRN Dextrose [Insta-Glucose] 15 gm PO PRN PRN Loperamide [Imodium] 2 mg PO QIDP PRN Ondansetron [Zofran] 4 mg IV Q6HP PRN Promethazine [Phenergan] 25 mg PO Q8HP PRN Vancomycin Per Pharmacy 1 order IV UD 03/27/18 12:05 Consistent Carbohydrate Diet 03/27/18 14:00 0.9 % Sodium Chloride [Saline Flush] 10 ml IV Q8 Warfarin Per Pharmacy [Coumadin Per Pharmacy] 1 order PO UD 03/27/18 17:00 Accu-Chek 1 each FS ACHS Insulin Lispro [HumaLOG] See Dose Instructions SQ ACHS 03/27/18 17:30 Ferrous Sulfate 325 mg PO BIDCC 03/27/18 21:00 Atorvastatin [Lipitor] 40 mg PO HS Cinacalcet [Sensipar] 30 mg PO HS QUEtiapine [SEROquel] 25 mg PO HS 03/28/18 Consult to Physician [CONS] Urgent 03/28/18 07:20 Blood Product Documentation NOW 03/28/18 07:30 0.9 % Sodium Chloride [Sodium Chloride 0.9%] 250 ml IV 20 mls/hr 03/28/18 09:00 Neutra Phos 2 packet PO BID cefTRIAXone [Rocephin] 1 gm IV Q24H 03/28/18 10:16 Notify ONCE 03/28/18 10:30 0.9 % Sodium Chloride [Sodium Chloride 0.9%] 250 ml IV 20 mls/hr 03/28/18 13:00 Clindamycin [Cleocin] 900 mg Dextrose 5% in Water 50 ml IV Q8H 03/29/18 04:00 Complete Blood Count DAILY INR [Prothrombin Time INR] DAILY Inpatient Panel DAILY 03/29/18 09:00 Venlafaxine [Effexor Xr] 150 mg PO DAILY 03/30/18 04:00 Complete Blood Count DAILY INR [Prothrombin Time INR] DAILY Inpatient Panel DAILY Transfer Discharge Sum: A/P - Problem Maintenance (1) Necrotizing fasciitis Assessment & Plan: transfer to [facility] for surgical debridement Status: Acute - Plan Disposition: Xfer As Inpt ([facility]) Quality Measure Queries - VTE Deep Vein Thrombosis/Pulmonary Embolism Present on Admission: No
[2018-03-29] MEDS ORDERED: VENLAFAXINE 150 MG CAP.XL.24H PO SCH (09:00)
== END 2018-03-28 15:41 | disposition other institution (70) | DRG 557 ==
LOC: ED 15:54 → ICU 21:10
PROVIDERS: ADMIT Internal Medicine; ATTEND Internal Medicine
CPT/HCPCS: 84145; 90935; J0696; J0881; J0881-EC; J0882; J2060; J3370; J3430; J3480; J7030; J7042; J7050; J7060

== ENCOUNTER 2018-04-17 15:12 | Observation (INO) ==
[2018-04-17] MEDS ORDERED: 0.9 % SODIUM CHLORIDE 250 ML IV SCH ×3 (15:30→21:00)
[2018-04-17 16:16] LABS: Basophils # (Auto) 0.1 K/mcL (0.0-0.3); Basophils % (Auto) 0.6 % (0.0-2.0); Eosinophils # (Auto) 0.7 K/mcL (0.0-0.7); Eosinophils % (Auto) 4.8 % (0.0-7.0); Lymphocytes # (Auto) 3.9 K/mcL (1.5-4.8); Lymphocytes % (Auto) 27.7 % (15.5-49.0); Mean Cell Volume 81.1 fL (80.0-100.0); Mean Corpuscular Hemoglobin 25.9 pg (26.0-34.0); Monocytes # (Auto) 1.8 K/mcL (0.1-0.9); Monocytes % (Auto) 12.9 % (1.0-12.0); Platelet Count 275 K/mcL (140-440); RBC 2.69 M/mcL (4.00-5.20); Red Cell Distribution Width 16.1 % (11.5-14.5)
--- NOTE | 2018-04-17 16:35 | Emergency Department Note ---
General Adult HPI - General Chief complaint: Weakness Stated complaint: Weakness, low H & H Time Seen by Provider: 04/17/18 15:42 Source: patient Mode of arrival: wheelchair Limitations: no limitations - History of Present Illness HPI Narrative: 42-year-old female presents in the ED after dialysis today. Patient was advised while in dialysis she needed to come into the ED for blood transfusion due to low hemoglobin/hematocrit. Patient states she over the last few days she has been increasingly tired but today she has felt pretty good. Patient's has no changes in urinary or bowel. Patient says she normally has chronic diarrhea. Patient has no complaints of shortness of breath, chest pain, difficulty swallowing, gastric pain. Patient has health history of end-stage renal disease on chronic hemodialysis (through right IJ tunneled hemodialysis catheter followed by Dr. Anton), secondary hyperparathyroidism of renal origin, chronic anemia due to kidney disease, chronic hypotension, coronary artery disease, peripheral vascular disease, renal artery stenosis, diabetes mellitus type 2. Dr. Anton requested patient have a GI workup to rule out any possible bleed. Onset (ago): day(s) (3) Radiation: non-radiation Treatments Prior to Arrival: other (dialysis) - Related Data Home Medications Medication Instructions Recorded Confirmed cinacalcet 30 mg tablet 30 mg PO HS tab 07/09/17 03/26/18 Blood-Glucose Meter [Blood Glucose 1 strip 5XD 02/18/18 03/08/18 Monitoring] metoprolol succinate ER 25 mg 25 mg PO QDAY 03/04/18 03/26/18 capsule sprinkle, ext. release 24 hr midodrine 5 mg tablet 5 mg PO TID PRN tab 03/04/18 03/26/18 ondansetron HCl 4 mg tablet 4 mg PO Q4H PRN tab 03/08/18 03/26/18 warfarin 2.5 mg tablet 7.5 mg PO DAILY 03/08/18 03/26/18 Warfarin [Coumadin] 5 mg PO DAILY 03/09/18 03/26/18 Dextrose [Glucose Bits] 1 gm PO PRN PRN 03/26/18 03/26/18 Ferrous Sulfate [Iron] 325 mg PO BID 03/26/18 03/26/18 Glucagon,Human Recombinant 1 mg PO PRN PRN 03/26/18 03/26/18 [Glucagon Emergency Kit] Insulin Glargine,Hum.rec.anlog 10 unit SQ ONCE 03/26/18 03/26/18 [Basaglar Kwikpen U-100] Promethazine [Phenergan] 25 mg PO Q8HP PRN 03/26/18 03/26/18 QUEtiapine [SEROquel] 25 mg PO HS 03/26/18 03/26/18 Sulfamethoxazole/Trimethoprim 1 tab PO BID 03/26/18 03/26/18 [Bactrim Ds] Acetaminophen 650 mg PO PRN PRN 04/17/18 04/17/18 Adult Aspirin 81 mg PO QDAY 04/17/18 04/17/18 Calcitriol [Rocaltrol] 0.25 mg PO 3XW 04/17/18 04/17/18 Cholecalciferol (Vitamin D3) 2,000 unit PO 04/17/18 [Vitamin D] Docusate Sodium 100 mg PO BID 04/17/18 04/17/18 Gabapentin 100 mg PO TID 04/17/18 04/17/18 Glucagon Emergency Kit 1 mg IM PRN 04/17/18 Glucose Bits 1 gm PO PRN PRN 04/17/18 04/17/18 Heparin 5,000 units SQ BID 04/17/18 04/17/18 Insulin Lispro [HumaLOG] 0 unit SQ ACHS 04/17/18 04/17/18 Melatonin [Melatonin 3Mg Tablet] 3 mg PO HS 04/17/18 04/17/18 Metoclopramide [Reglan] 10 mg PO AC 04/17/18 04/17/18 Polyethylene Glycol 3350 [Miralax] 17 mg PO PRN PRN 04/17/18 04/17/18 Previous Rx's Medication Instructions Recorded loperamide 2 mg capsule 2 mg PO QID PRN #30 cap 05/28/16 atorvastatin 40 mg tablet 40 mg PO QDAY #30 tab 07/20/17 venlafaxine ER 225 mg 225 mg PO QDAY #90 tab 07/20/17 tablet,extended release 24 hr sevelamer carbonate 800 mg tablet 1,600 mg PO TID #180 tab 08/05/17 cetirizine 5 mg tablet 5 mg PO QDAY #30 tab 01/21/18 Allergies Allergy/AdvReac Type Severity Reaction Status Date / Time No Known Drug Allergies Allergy Verified 04/17/18 15:12 Review of Systems All systems ED: reviewed and negative except as stated. Past Medical History - Past Medical History PMFSH Narrative: All Active Problems (Last Reviewed 03/08/18 @ 11:34 by Celia Cohn MD) Urinary tract infection (Acute) Acute encephalopathy (Acute) Delirium (Acute) Anemia in ESRD (end-stage renal disease) (Chronic) Sepsis (Acute) Necrotizing fasciitis (Acute) Altered mental status (Acute) Intractable nausea and vomiting (Acute) Peripheral vascular disease due to secondary diabetes (Chronic) Cholelithiasis with cholecystitis without obstruction (Acute) Hypotension (Chronic) Metabolic bone disease (Chronic) Hyperlipidemia (Chronic) End stage renal disease on dialysis (Chronic) CAD (coronary artery disease) (Chronic) Bowel incontinence (Chronic) Anemia of chronic renal failure (Chronic) Hypotension (Acute) Bradycardia (Acute) Dialysis patient (Acute) Status post coronary artery bypass graft (Acute) Abnormal resting ECG findings (Acute) Anemia (Acute) Pulmonary embolism (Acute) Adult health maintenance (Chronic) Amputee, above knee (Chronic) Kidney failure (Chronic ~2006) Hypertension, essential (Chronic ~1999) Congenital heart disease (Chronic) Heart problem (Chronic ~2002) DMII (diabetes mellitus, type 2) (Chronic ~2003) Depression (Chronic ~2005) Anxiety (Chronic ~2003) Past Surgical History (Last Reviewed 03/08/18 @ 11:34 by Celia Cohn MD) History of laparoscopic cholecystectomy (Acute) H/O colonoscopy (Chronic) History of surgery (Chronic 08/16/15) History of surgery (Chronic 09/03/15) History of surgery (Chronic 08/20/17) Hx of AKA (above knee amputation) (Chronic 09/07/15) Hx of coronary artery bypass graft (Chronic 08/20/17) Status post debridement (Chronic 09/16/17) Family History (Last Reviewed 03/08/18 @ 11:34 by Celia Cohn MD) Family/Other Cervical cancer Grandfather Prostate cancer Diabetes Hypertension, essential Grandmother Dementia Father Diabetes Hypertension, essential Heart attack Family/Other Diabetes Hypertension, essential Medical history: Reports: coronary artery disease, DM (Type II now on dialysis.) , hypertension, renal disease (End-stage, on dialysis.), other (Pulmonary embolism.). Denies: cancer, CVA, GERD, hyperlipidemia, myocardial infarction, TIA Psychiatric history: Reports: depression (Takes Effexor.). Denies: anxiety Surgical history ED: Reports: coronary bypass (CABG), other (AKA (right).) - Social History smoking status: Never smoker Alcohol use: Reports: None Drug use: Reports: none. Denies: marijuana Physical Exam Limitations: no limitations General appearance: alert, in no apparent distress Head: atraumatic, normocephalic, normal inspection Eye: Present: normal appearance, PERRL, other (mucous membranes pale) ENT: normal exam, normal oropharynx, mucous membranes moist, TM's normal bilaterally, normal external ear exam Neck: Present: normal inspection. Absent: tenderness, lymphadenopathy Chest: Present: normal inspection, symmetric chest wall rise, other (right upper chest with IJ tunneled hemodialysis catheter). Absent: tenderness Respiratory: Present: normal lung sounds bilaterally. Absent: respiratory distress, rales/crackles, wheezes Cardiovascular: Present: regular rate, normal rhythm. Absent: systolic murmur, diastolic murmur Abdominal: Present: soft, normal bowel sounds, other (small bruises from medication injections across abdomen). Absent: distention, tenderness, guarding , rebound, rigidity Rectal: Present: normal inspection, normal rectal tone, heme (+) stool, other ( soft non-formed bowel). Absent: fecal impaction, tenderness Extremities: Present: normal inspection, other (right leg above the knee amputee ). Absent: tenderness Back: Present: normal inspection. Absent: tenderness, CVA tenderness (R), CVA tenderness (L) Neurological: Present: alert, oriented X3 Psychiatric: Present: normal affect, normal mood. Absent: depressed, agitated, anxious Skin: Present: warm, dry, intact, pallor. Absent: cyanosis, diaphoresis, erythema Course Vital Signs Temperature 98.0 F 04/17/18 15:13 Pulse Rate 81 04/17/18 15:13 Respiratory Rate 16 04/17/18 15:13 Blood Pressure 135/89 04/17/18 15:13 Pulse Oximetry (%) 98 04/17/18 15:13 Temperature 98.0 F 04/17/18 21:02 Pulse Rate 85 04/17/18 21:02 Respiratory Rate 21 04/17/18 21:02 Blood Pressure 116/93 04/17/18 21:02 Pulse Oximetry (%) 100 04/17/18 21:02 Medical Decision Making - MDM Narrative Medical decision making narrative: Patient did have positive guaiac stool and hemoglobin 7/hematocrit 20.8. Consulted Dr. Clarke roping machine tender advised he would do an EGD if patient met admission criteria. Consulted Dr. Hernandez who admitted patient and observations. - Medical Records Medical records reviewed: Yes I reviewed the patient's medical records. - Lab Data Lab results reviewed: Yes I reviewed the patient's lab results. Result diagrams: 04/17/18 15:20 04/17/18 15:21 Lab Results 04/17/18 04/17/18 04/17/18 Range/Units 15:20 15:21 15:21 WBC 14.1 H (4.5-11.0) K/mcL RBC 2.69 L (4.00-5.20) M/mcL Hgb 7.0 L* (12.0-15.0) g/dL Hct 21.8 L (36.0-48.0) % POC Hct 23.0 L (36.0-48.0) % MCV 81.1 (80.0-100.0) fL MCH 25.9 L (26.0-34.0) pg MCHC 32.0 (31.0-36.0) g/dL RDW 16.1 H (11.5-14.5) % Plt Count 275 (140-440) K/mcL MPV 7.9 (7.4-10.4) fL Gran % 54.0 (38.0-78.0) % Lymph % (Auto) 27.7 (15.5-49.0) % [place] % (Auto) 12.9 H (1.0-12.0) % Eos % (Auto) 4.8 (0.0-7.0) % Baso % (Auto) 0.6 (0.0-2.0) % Gran # 7.6 (1.8-8.0) K/mcL Lymph # (Auto) 3.9 (1.5-4.8) K/mcL [place] # (Auto) 1.8 H (0.1-0.9) K/mcL Eos # (Auto) 0.7 (0.0-0.7) K/mcL Baso # (Auto) 0.1 (0.0-0.3) K/mcL PT (11.9-14.5) sec INR (0.9-1.1) POC Sodium 135 (133-145) mmol/L Sodium 132 L (133-145) mmol/L POC Potassium 3.2 L (3.3-5.1) mmol/L Potassium 3.3 (3.3-5.1) mmol/L POC Chloride 91 L (96-108) mmol/L Chloride 93 L (96-108) mmol/L Carbon Dioxide 30 (22-30) mmol/L POC Total CO2 29 (22-30) mmol/L Anion Gap 9.0 (8-16) POC BUN < 3 L (6-20) mg/dl BUN 3 L (6-20) mg/dl Creatinine 1.0 (0.6-1.1) mg/dl POC Creatinine 1.1 (0.6-1.1) mg/dl GFR Calculation 69 Glucose 127 H (70-105) mg/dL POC Glucose 126 H (70-105) mg/dL Calcium 8.4 L (8.6-10.4) mg/dl POC WB Ioniz Calcium 1.05 L (1.16-1.32) mmol/L Magnesium 1.6 (1.6-2.5) mg/dL Total Bilirubin 0.3 (0.0-1.0) mg/dL AST 9 (0-37) U/l ALT 7 (0-40) U/l Alkaline Phosphatase 361 H (39-117) U/L Total Protein 6.3 (5.9-8.4) gm/dL Albumin 3.1 L (3.2-5.2) gm/dL Globulin 3.2 (2.2-3.7) gm/dL Albumin/Globulin Ratio 1.0 (1.0-2.3) Procalcitonin 0.39 (<0.10) ng/mL 04/17/18 Range/Units 15:45 WBC (4.5-11.0) K/mcL RBC (4.00-5.20) M/mcL Hgb (12.0-15.0) g/dL Hct (36.0-48.0) % POC Hct (36.0-48.0) % MCV (80.0-100.0) fL MCH (26.0-34.0) pg MCHC (31.0-36.0) g/dL RDW (11.5-14.5) % Plt Count (140-440) K/mcL MPV (7.4-10.4) fL Gran % (38.0-78.0) % Lymph % (Auto) (15.5-49.0) % [place] % (Auto) (1.0-12.0) % Eos % (Auto) (0.0-7.0) % Baso % (Auto) (0.0-2.0) % Gran # (1.8-8.0) K/mcL Lymph # (Auto) (1.5-4.8) K/mcL [place] # (Auto) (0.1-0.9) K/mcL Eos # (Auto) (0.0-0.7) K/mcL Baso # (Auto) (0.0-0.3) K/mcL PT 12.6 (11.9-14.5) sec INR 0.9 (0.9-1.1) POC Sodium (133-145) mmol/L Sodium (133-145) mmol/L POC Potassium (3.3-5.1) mmol/L Potassium (3.3-5.1) mmol/L POC Chloride (96-108) mmol/L Chloride (96-108) mmol/L Carbon Dioxide (22-30) mmol/L POC Total CO2 (22-30) mmol/L Anion Gap (8-16) POC BUN (6-20) mg/dl BUN (6-20) mg/dl Creatinine (0.6-1.1) mg/dl POC Creatinine (0.6-1.1) mg/dl GFR Calculation Glucose (70-105) mg/dL POC Glucose (70-105) mg/dL Calcium (8.6-10.4) mg/dl POC WB Ioniz Calcium (1.16-1.32) mmol/L Magnesium (1.6-2.5) mg/dL Total Bilirubin (0.0-1.0) mg/dL AST (0-37) U/l ALT (0-40) U/l Alkaline Phosphatase (39-117) U/L Total Protein (5.9-8.4) gm/dL Albumin (3.2-5.2) gm/dL Globulin (2.2-3.7) gm/dL Albumin/Globulin Ratio (1.0-2.3) Procalcitonin (<0.10) ng/mL Disposition Pt seen by PATCH PRESS OPERATOR/PA only: No ([place]) Clinical Impression: Anemia in ESRD (end-stage renal disease) Disposition: Xfer As Inpt ([facility]) Condition: Fair Time of Disposition: 23:19
[2018-04-17 16:44] LABS: ALT/SGPT 7 U/l (0-40); Albumin 3.1 gm/dL (3.2-5.2); Alkaline Phosphatase 361 U/L (39-117); Blood Urea Nitrogen 3 mg/dl (6-20)
--- NOTE | 2018-04-17 18:59 | Internal Med History&Physical ---
Medical - H&P: HPI Patient information: Note initiated : 04/17/18 at 6:54 pm Patient: Louisa Cohn a 42 y/o F admitted on for Weakness, low H & H. Chief Complaint: Anemia on labs, lightheadedness History of present illness: Ms. Cohn is a 42 year old F with Type 2 diabetes, end-stage renal disease on hemodialysis, peripheral arterial disease, status post right above-knee amputation who is known to me from admission here on 03/26 with delirium. He now presents due to falling hemoglobin level/worsening anemia. Patient was admitted here on 03/26, emergently transferred to [facility] 03/28 due to concern for necrotizing fasciitis (swelling of the upper extremity with possible air dissecting into the chest wall, she tells me this turns out to been infiltration of fluid). She presented with confusion and hallucinations. Appears ultimately her symptoms are secondary to VRE urinary tract infection. She had a hemoglobin in the 7 range at that time and since then, she has had low and slowly decreasing hemoglobin levels, these of been monitored while on dialysis. He needed to drift down, today on routine monitoring her hemoglobin was 7.0 and her hematocrit was 20.8. She was referred to the emergency department for transfusion. Upon evaluation the ED, she is found to have normal appearing stool however it was guaiac positive. During March her hemoglobin has been in the 7 range, was 6.9 on 03/28 (day of transfer to [facility] ). Back in February hemoglobin was up in the 10 range. The patient takes a baby aspirin a day for peripheral arterial disease. She has been on warfarin for history of PE, though her INR 0.9 currently. [place]. She has chronic intermittent nausea which is unchanged. No abdominal pain. She 's had no hematemesis. She's noted no karen blood in her stools, no maroon or melenic stools. She does have a problem with chronic loose stools which is unchanged. Patient notes that she had a fall yesterday, she was getting up to transfer with her wheelchair, was lightheaded and fell to the floor (she remains at rehabilitation facility, where she has been postop after recent surgeries). She denies any chest pain/tightness/squeezing. She has intermittent shortness of breath which is chronic and unchanged. Patient's unsure if she is beginning erythropoietin during dialysis, though Dr. Anton has been closely monitoring her anemia and I suspect she has been receiving it. Given her guaiac positive stools, Dr. Mckeon was contacted, he plans to see the patient and likely perform endoscopy to find source of chronic GI blood loss. She is being hospitalized for transfusion for symptomatic anemia as well as further investigation of source of blood loss. All systems: reviewed and no additional remarkable complaints except as stated Medical - H&P: PMH Medical history: DMII (diabetes mellitus, type 2) (Chronic ~2003) Hypotension (Chronic) Metabolic bone disease (Chronic) Hyperlipidemia (Chronic) End stage renal disease on dialysis (Chronic) CAD (coronary artery disease) (Chronic)-s/p CABG x 4, 08/2017 Hypertension, essential (Chronic ~1999) Bowel incontinence (Chronic) Anemia of chronic renal failure (Chronic) Amputee, above knee (Chronic) 2016 Kidney failure (Chronic ~2006) Congenital heart disease (Chronic) Heart problem (Chronic ~2002) Depression (Chronic ~2005) Anxiety (Chronic ~2003) Surgical history: H/O colonoscopy (Chronic) History of surgery (Chronic 08/16/15) Atherosclerosis with ulceration of right lower extremity Severe 3 vessel coronary artery disease History of surgery (Chronic 09/03/15) Revascularization left lower extremity with transluminal angioplasty of left superficial femoral and popliteal artery segments Revascularization with transluminal angioplasty of left anterior tibial artery Hx of coronary artery bypass graft (Chronic 08/20/17) Endoscopic left radial artery harvest; left saphenous vein harvest, CABG x4 Hx of AKA (above knee amputation) (Chronic 09/07/15) right thigh through femur History of cholecystectomy Pertinent family history: Father Diabetes Hypertension, essential Heart attack Grandfather Prostate cancer Paternal Diabetes Paternal Hypertension, essential Paternal Grandmother Dementia Paternal Family/Other Diabetes Uncle-paternal Hypertension, essential Uncle -paternal Family/Other Cervical cancer Aunt Social history: marital status: smoking status: Never smoker alcohol intake frequency: does not drink substance use type: does not use Medical - H&P: Meds Home Medications Medication Instructions Recorded Confirmed Type loperamide 2 mg capsule 2 mg PO QID PRN #30 cap 05/28/16 04/17/18 Rx cinacalcet 30 mg tablet 30 mg PO HS tab 07/09/17 03/26/18 History atorvastatin 40 mg tablet 40 mg PO QDAY #30 tab 07/20/17 04/17/18 Rx venlafaxine ER 225 mg 225 mg PO QDAY #90 tab 07/20/17 03/26/18 Rx tablet,extended release 24 hr sevelamer carbonate 800 mg tablet 1,600 mg PO TID #180 tab 08/05/17 03/26/18 Rx cetirizine 5 mg tablet 5 mg PO QDAY #30 tab 01/21/18 03/26/18 Rx Blood-Glucose Meter [Blood Glucose 1 strip 5XD 02/18/18 03/08/18 History Monitoring] metoprolol succinate ER 25 mg 25 mg PO QDAY 03/04/18 03/26/18 History capsule sprinkle, ext. release 24 hr midodrine 5 mg tablet 5 mg PO TID PRN tab 03/04/18 03/26/18 History ondansetron HCl 4 mg tablet 4 mg PO Q4H PRN tab 03/08/18 03/26/18 History warfarin 2.5 mg tablet 7.5 mg PO DAILY 03/08/18 03/26/18 History Warfarin [Coumadin] 5 mg PO DAILY 03/09/18 03/26/18 History Dextrose [Glucose Bits] 1 gm PO PRN PRN 03/26/18 03/26/18 History Ferrous Sulfate [Iron] 325 mg PO BID 03/26/18 03/26/18 History Glucagon,Human Recombinant 1 mg PO PRN PRN 03/26/18 03/26/18 History [Glucagon Emergency Kit] Insulin Glargine,Hum.rec.anlog 10 unit SQ ONCE 03/26/18 03/26/18 History [Basaglar Asyapen U-100] Promethazine [Phenergan] 25 mg PO Q8HP PRN 03/26/18 03/26/18 History QUEtiapine [SEROquel] 25 mg PO HS 03/26/18 03/26/18 History Sulfamethoxazole/Trimethoprim 1 tab PO BID 03/26/18 03/26/18 History [Bactrim Ds] Acetaminophen 650 mg PO PRN PRN 04/17/18 04/17/18 History Adult Aspirin 81 mg PO QDAY 04/17/18 04/17/18 History Calcitriol [Rocaltrol] 0.25 mg PO 3XW 04/17/18 04/17/18 History Cholecalciferol (Vitamin D3) 2,000 unit PO 04/17/18 History [Vitamin D] Docusate Sodium 100 mg PO BID 04/17/18 04/17/18 History Gabapentin 100 mg PO TID 04/17/18 04/17/18 History Glucagon Emergency Kit 1 mg IM PRN 04/17/18 History Glucose Bits 1 gm PO PRN PRN 04/17/18 04/17/18 History Heparin 5,000 units SQ BID 04/17/18 04/17/18 History Insulin Lispro [HumaLOG] 0 unit SQ ACHS 04/17/18 04/17/18 History Melatonin [Melatonin 3Mg Tablet] 3 mg PO HS 04/17/18 04/17/18 History Metoclopramide [Reglan] 10 mg PO AC 04/17/18 04/17/18 History Polyethylene Glycol 3350 [Miralax] 17 mg PO PRN PRN 04/17/18 04/17/18 History Allergies Allergy/AdvReac Type Severity Reaction Status Date / Time No Known Drug Allergies Allergy Verified 04/17/18 15:12 Medical - H&P: Exam - Constitutional Vitals: Temp Pulse Resp BP Pulse Ox 98.0 F 81 16 135/89 98 04/17/18 15:13 04/17/18 15:13 04/17/18 15:13 04/17/18 15:13 04/17/18 15:13 Exam: GENERAL: Alert, oriented, in no acute distress. Cooperative, appears stated age. HEENT: Atraumatic. Right pupil 6 mm, left pupil 5 mm, reactive to direct and indirect light; conjunctiva clear, no scleral icterus. Hearing grossly intact. Oropharynx with moist mucous membranes, no lip or gum lesions, no pharyngeal erythema or exudate. Tongue midline, palate rises symmetrically. NECK: Supple without meningismus, no thyromegaly RESPIRATORY: Breath sounds clear bilaterally without wheezes or rhonchi. Respiratory effort is unlabored. CHEST: Right-sided tunneled dialysis catheter, nontender and intact. Well- healed median sternotomy scar. CARDIOVASCULAR: Regular rate and rhythm, 1/6 systolic precordial murmur, no gallop or rub. No peripheral edema. Carotid pulses 2+ without bruit. GI: Abdomen soft, nontender, no guarding or rebound. Bowel sounds are present. No hepatosplenomegaly. LYMPHATIC: No cervical or supraclavicular lymphadenopathy MUSCULOSKELETAL: Right-sided above-knee amputation, stump is with well-healed surgical wound. Otherwise, no joint erythema or swelling, normal range of motion in maintaining extremities. SKIN: Intact, warm, dry. Skin turgor normal. NEUROLOGIC: Cranial nerves II through XII grossly intact. Muscle mass diminished. Strength 5/5 in the upper and left lower extremities. Sensation intact to light touch bilaterally. PSYCHIATRIC: Alert, oriented x3, normal mood and affect, normal insight. Thought processes are linear, no evidence of hallucination. Medical - H&P: Reslt - Labs CBC & Chem 7: 04/17/18 15:20 04/17/18 15:21 Labs: Short CBC 04/17/18 Range/Units 15:20 WBC 14.1 H (4.5-11.0) K/mcL Hgb 7.0 L* (12.0-15.0) g/dL Hct 21.8 L (36.0-48.0) % Plt Count 275 (140-440) K/mcL BMP 04/17/18 15:21 Sodium 132 L Potassium 3.3 Chloride 93 L Carbon Dioxide 30 BUN 3 L Creatinine 1.0 Glucose 127 H Calcium 8.4 L Liver Function 04/17/18 Range/Units 15:21 Total Bilirubin 0.3 (0.0-1.0) mg/dL AST 9 (0-37) U/l ALT 7 (0-40) U/l Alkaline Phosphatase 361 H (39-117) U/L Albumin 3.1 L (3.2-5.2) gm/dL Medical - H&P: A/P - Narrative A/P Narrative: A 2-year-old female with history of diabetes, end-stage renal disease, coronary disease, peripheral arterial disease who presents the ED after having been found to have significant, worsening anemia on monitoring. Acute on chronic anemia. Suspect at this point a component of chronic GI blood loss with heme positive stools. The patient is on 81 mg of aspirin, also has been on warfarin (unclear when that stopped, INR currently normal at 0.9). She was symptomatic with this, and becoming lightheaded and resulting in a fall yesterday. Plan: Hospitalize on observation, telemetry monitoring Transfuse 2 units packed red blood cells GI consultation for consideration of endoscopy to define source of blood loss Acid suppression/PPI End-stage renal disease. On dialysis Thursday, , Saturdays. Received hemodialysis today. No evidence of volume overload. Plan: Furosemide if needed after transfusion to manage volume status. Type 2 diabetes mellitus on insulin therapy. Plan: Continue with Lantus, sliding scale insulin, diabetic/renal diet. Hypertension with hypotension during dialysis. Blood pressure variable in the emergency department. Plan: Currently hold home antihypertensives. History of VRE urinary tract infection/acute cystitis Plan: Contact precautions Coronary artery disease, status post CABG back in August. No current chest symptoms associated with her anemia. Plan: Monitor Prophylaxis: SCDs CODE STATUS: Full code
[2018-04-17] MEDS ORDERED: DEXTROSE 31 GM ORAL.SUSP PO PRN (21:00)
[2018-04-17] MEDS ORDERED: ACETAMINOPHEN 325 MG TABLET PO PRN (21:00)
[2018-04-17] MEDS ORDERED: DEXTROSE 50% 50 ML VIAL IV PRN (21:00)
[2018-04-17] MEDS ORDERED: INSULIN GLARGINE, HUMAN 1 UNIT/0.01 ML SQ SCH (21:00)
[2018-04-17] MEDS ORDERED: QUEtiapine 25 MG TABLET PO SCH (21:00)
[2018-04-17] MEDS ORDERED: ONDANSETRON 4 MG/2 ML VIAL IV PRN (21:00)
--- NOTE | 2018-04-17 21:04 | Emergency Department Note ---
ED Note Addendum Note Addendum: Dr. Anton contacted me about this patient initially; she ordered type and screen for transfusion as patient has markedly low hemoglobin and is coming from dialysis over to the ER. I then saw this patient with Katty BOGGS. I agree with her evaluation management and documentation. We discussed the need for admission and so hospitalist was contacted by Katty along with GI consult with Dr. Cox. Patient will be admitted to Dr. Rosetta Hernandez, the hospitalist for further evaluation and workup.
[2018-04-17] MEDS: INSULIN LISPRO 1 UNIT/0.01 ML UNIT SQ SCH (22:14)
[2018-04-17] MEDS: 0.9 % SODIUM CHLORIDE 10 ML SYRINGE IV SCH (22:16)
[2018-04-18] MEDS: 0.9 % SODIUM CHLORIDE 10 ML SYRINGE IV SCH (05:49)
[2018-04-18 07:00] LABS: Basophils # (Auto) 0.1 K/mcL (0.0-0.3); Basophils % (Auto) 0.6 % (0.0-2.0); Eosinophils # (Auto) 0.5 K/mcL (0.0-0.7); Eosinophils % (Auto) 3.5 % (0.0-7.0); Granulocytes % (Auto) 59.3 % (38.0-78.0); Lymphocytes # (Auto) 2.7 K/mcL (1.5-4.8); Lymphocytes % (Auto) 21.3 % (15.5-49.0); Mean Cell Volume 83.2 fL (80.0-100.0); Mean Corpuscular Hemoglobin 27.5 pg (26.0-34.0); Monocytes % (Auto) 15.3 % (1.0-12.0); Platelet Count 240 K/mcL (140-440); RBC 3.74 M/mcL (4.00-5.20); Red Cell Distribution Width 15.9 % (11.5-14.5)
[2018-04-18 07:12] LABS: ALT/SGPT 7 U/l (0-40); Albumin 2.8 gm/dL (3.2-5.2); Albumin/Globulin Ratio 0.9 (1.0-2.3); Alkaline Phosphatase 335 U/L (39-117); Bilirubin,Direct < 0.2 mg/dL (0.0-0.3); Blood Urea Nitrogen 4 mg/dl (6-20); Gamma Glutamyl Transpeptidase 96 U/L (5-36); Uric Acid 2.1 mg/dL (2.5-8.0)
[2018-04-18] MEDS: INSULIN LISPRO 1 UNIT/0.01 ML UNIT SQ SCH ×2 (08:06→12:41)
[2018-04-18 09:34] LABS: Ferritin 838.2 ng/ml (13-150)
[2018-04-18] MEDS ORDERED: METOCLOPRAMIDE 10 MG TABLET PO SCH (11:30)
[2018-04-18] MEDS ORDERED: NEUTRA PHOS 1 PACKET PO ONE (12:55)
--- NOTE | 2018-04-18 12:58 | Nephrology Progress Note ---
Subjective Patient information: Note initiated : 04/18/18 at 12:56 pm Service Date, if different from initiated Date: [] Patient: Louisa Cohn 42 y/o F admitted on 04/17/18 for Weakness, low H & H. Chief Complaint: [] Principal diagnosis: severe anemia Interval history: Patient noted to have severe anemia with progressive down of Hb despite increasing aranesp dose, normal Tsat she does have stool occult blood positive and she will need GI work up but given stable labs GI recommends this can be done outpatient, discussed with patient and she wants to be discharged back to rehab facility she states her nausea, vomiting is better if she gets reglan pre meal she thinks she is eating better she is feeling a little better since blood transfusion she denies SOB, CP no edema no other concerns Pertinent ROS: as above Objective - Vital Signs Vital signs: Vital Signs Temp Pulse Resp BP BP BP Pulse Ox 04/18/18 12:00 98.2 F 140/92 100 04/18/18 11:59 96 04/18/18 11:00 98.7 F 20 128/89 100 04/18/18 10:01 138/89 100 04/18/18 08:00 16 155/97 91 04/18/18 07:30 16 138/89 97 04/18/18 07:00 98.4 F 20 101/77 94 04/18/18 04:01 98.5 F 17 166/109 99 04/18/18 02:20 98.4 F 16 154/95 98 04/18/18 01:00 98.4 F 16 147/98 98 04/18/18 00:00 98.5 F 16 120/87 120/87 98 04/17/18 23:25 98.4 F 16 129/86 97 04/17/18 23:15 98.3 F 16 147/87 92 04/17/18 22:55 98.8 F 18 132/79 95 04/17/18 22:00 98.4 F 18 122/87 98 04/17/18 21:40 98.4 F 18 122/70 98 04/17/18 21:30 98.8 F 18 111/67 96 04/17/18 21:02 98.0 F 85 21 116/93 100 04/17/18 21:00 98.8 F 18 104/61 96 04/17/18 20:44 98.8 F 18 104/61 96 04/17/18 20:30 21 116/93 04/17/18 20:16 85 21 119/86 100 04/17/18 20:01 82 24 H 127/89 99 04/17/18 19:49 16 106/77 04/17/18 19:47 84 17 88/29 93 04/17/18 19:41 82 16 96 04/17/18 19:36 84 15 120/89 98 04/17/18 18:45 85 16 119/87 95 04/17/18 18:30 89 17 98/52 99 04/17/18 18:15 85 19 115/73 94 04/17/18 18:00 83 20 114/70 99 04/17/18 17:45 83 15 135/75 100 04/17/18 16:45 80 18 109/76 96 04/17/18 16:31 77 18 120/98 100 04/17/18 16:30 80 18 119/90 98 04/17/18 16:15 77 15 123/88 96 04/17/18 15:45 77 15 101/62 98 04/17/18 15:30 78 18 120/79 99 04/17/18 15:13 98.0 F 81 16 135/89 98 Intake and Output 04/17/18 04/18/18 04/18/18 21:59 05:59 13:59 Intake Total 286 / 286 358 / 358 Output Total 151 / 151 Balance 286 / 286 282 / 282 -151 / -151 Intake: Blood Product 286 / 286 358 / 358 Output: Void Amount 75 / 75 # of times incontinent of urine Urine/Stool Mix 150 / 150 Other: Stool Size Moderate Small Stool Color Brown Brown Rory Colored Stool Consistency Soft Soft Loose # Bowel Movements 1 # of times incontinent of 1 1 Bowels Weight 134 lb 14.4 oz Intake & Output: Intake & Output 04/17/18 04/18/18 04/18/18 21:59 05:59 13:59 Intake Total 286 / 286 358 / 358 Output Total 76 151 / 151 Balance 286 / 286 282 / 282 -151 / -151 Weight 134 lb 14.4 oz Intake: Blood Product 286 / 286 358 / 358 Output: Void Amount 75 / 75 # of times incontinent of urine Urine/Stool Mix 150 / 150 Other: Stool Size Moderate Small Stool Color Brown Brown Rory Colored Stool Consistency Soft Soft Loose # Bowel Movements 1 # of times incontinent of 1 1 Bowels - General Appearance General appearance: appears started age, chronically ill, frail EENT: mucous membranes moist Neck: no JVD Respiratory: clear Cardiology: no rub, no edema, normal S1, normal S2 Gastrointestinal: no tenderness, no guarding Integumentary: warm and dry Neurologic: alert and oriented x3 Musculoskeletal: no erythema, no cyanosis Psychiatric: mood/affect appropriate - Lab 04/18/18 04:10 04/18/18 04:10 Most recent lab results Calcium 9.0 mg/dl (8.6-10.4) 04/18/18 04:10 Phosphorus 1.0 mg/dL (2.7-4.5) L 04/18/18 04:10 Magnesium 1.6 mg/dL (1.6-2.5) 04/18/18 04:10 Assessment and Plan - Narrative A/P Narrative: ESRD on HD, no emergent need for [employer], dialysed yesterday, tolerated transfusion well no s/o fluid excess of K issues plan for HD on Thursday as scheduled anemia: s/p transfusion aranesp tsat not low GI work up as outpatient Low phos from poor po intake binders on hold one dose of neutra phos requested patient to have foods high in phos as she claims she has been eating better will monitor Will follow in dialysis Appreciate Dr Deal's help in managing this patient
--- NOTE | 2018-04-18 13:50 | Discharge Summary ---
Medical - DS: Prov Patient information: Note initiated : 04/18/18 at 1:46 pm Service Date, if different from initiated Date: [] Patient: Louisa Cohn 42 y/o F admitted on 04/17/18 for Weakness, low H & H. Date of admission: 04/17/18 20:44 Discharge date: 04/18/18 Primary care physician: Jerrica Joseph DO Admitting clinician: Rosetta Deal Consults: 04/17/18 Consult to Physician [CONS] Stat Comment: Consulting Provider: Noel Mckeon Reason For Exam: Physician to Consult Consult to Physician [CONS] Stat Comment: Consulting Provider: Rosetta Deal Reason For Exam: Physician to Consult Discharging clinician: Rosetta Deal Medical - DS: Meds - Discharge Medications Active and Home Medications: Home Medications atorvastatin 40 mg tablet 40 mg PO QDAY #30 tab 07/20/17 [Rx Confirmed 04/18/18 Last Taken 04/16/18] Blood-Glucose Meter [Blood Glucose Monitoring] 1 strip 5XD 02/18/18 [History Confirmed 04/18/18 Last Taken 02/17/18 21:00] ondansetron HCl 4 mg tablet 4 mg PO Q4H PRN tab 03/08/18 [History Confirmed 07/05 Last Taken 04/05/18] Dextrose [Glucose Bits] 1 gm PO PRN PRN 03/26/18 [History Confirmed 04/18/18 Last Taken 04/07/18] Glucagon,Human Recombinant [Glucagon Emergency Kit] 1 mg PO PRN PRN 03/26/18 [ History Confirmed 04/18/18 Last Taken Unknown] Calcitriol [Rocaltrol] 0.25 mg PO 3XW 04/17/18 [History Confirmed 04/18/18 Last Taken 04/17/18] Cholecalciferol (Vitamin D3) [Vitamin D] 2,000 unit PO QDAY 04/17/18 [History Confirmed 04/18/18 Last Taken 04/17/18] Docusate Sodium 100 mg PO BID 04/17/18 [History Confirmed 04/18/18 Last Taken ] Gabapentin 100 mg PO TID 04/17/18 [History Confirmed 04/18/18 Last Taken ] Glucagon Emergency Kit 1 mg IM PRN PRN 04/17/18 [History Confirmed 04/18/18 Last Taken Unknown] Heparin 5,000 units SQ BID 04/17/18 [History Confirmed 04/18/18 Last Taken 04/17] Insulin Lispro [HumaLOG] 0 unit SQ ACHS 04/17/18 [History Confirmed 04/18/18 Last Taken 04/17/18 08:00] Melatonin [Melatonin 3Mg Tablet] 6 mg PO HS 04/17/18 [History Confirmed Last Taken 04/16/18] Metoclopramide [Reglan] 10 mg PO AC 04/17/18 [History Confirmed 04/18/18 Last Taken 04/17/18] Polyethylene Glycol 3350 [Miralax] 17 mg PO PRN PRN 04/17/18 [History Confirmed 04/18/18 Last Taken Unknown] Acetaminophen [Non-Aspirin] 650 mg PO Q4HP PRN 04/18/18 [History Confirmed 04/18 Last Taken 04/10/18] Acetaminophen [Tylenol] 325 mg PO Q4HP PRN 04/18/18 [History Confirmed 04/18/18 Last Taken Unknown] Aspirin [Lois Chewable Aspirin] 81 mg PO DAILY 04/18/18 [History Confirmed 07/05 Last Taken 04/17/18] Loperamide [Imodium] 2 mg PO QIDP PRN 04/18/18 [History Confirmed 04/18/18 Last Taken 04/16/18] Venlafaxine HCl ER 150 mg PO DAILY 04/18/18 [History Confirmed 04/18/18 Last Taken 04/17/18] Medical - DS: Hosp Hospital course: 04/17 Ms. Cohn is a 42 year old F with Type 2 diabetes, end-stage renal disease on hemodialysis, peripheral arterial disease, status post right above-knee amputation who is known to me from admission here on 03/26 with delirium. He now presents due to falling hemoglobin level/worsening anemia. She had a hemoglobin in the 7 range at admission here on 03/26, she has had low and slowly decreasing hemoglobin levels, these of been monitored while on dialysis. He needed to drift down, today on routine monitoring her hemoglobin was 7.0 and her hematocrit was 20.8. She was referred to the emergency department for transfusion. Upon evaluation the ED, she is found to have normal appearing stool however it was guaiac positive. During March her hemoglobin has been in the 7 range, was 6.9 on 03/28 (day of transfer to [facility] ). Back in February hemoglobin was up in the 10 range. The patient takes a baby aspirin a day for peripheral arterial disease. She has been on warfarin for history of PE, though her INR 0.9 currently. She has chronic intermittent nausea which is unchanged. No abdominal pain. She's had no hematemesis. She's noted no karen blood in her stools, no maroon or melenic stools. She does have a problem with chronic loose stools which is unchanged. Patient notes that she had a fall yesterday, she was getting up to transfer with her wheelchair, was lightheaded and fell to the floor (she remains at rehabilitation facility, where she has been postop after recent surgeries). She denies any chest pain/tightness/squeezing. She has intermittent shortness of breath which is chronic and unchanged. 04/18 Feels well, tolerated transfusions. Review of medication list from living facility shows that she has been on subcutaneous heparin, 5000 units twice a day since discharge from [facility] on 04/02. Warfarin was stopped during that visit. She had been on warfarin for provoked PE after her surgeries earlier this year. She's completed 6 months of therapy. Given her ongoing anemia, suspected GI blood loss, heparin will be stopped at the time of discharge until she's had endoscopy. Discussed with Dr. Mckeon yesterday, she can have elective endoscopy as an outpatient as she is stable posttransfusion. Discharge diagnosis: Chronic blood loss anemia Secondary discharge diagnosis: ESRD on HD Low phosphorous from poor po intake, binders on hold, received 1 dose of Neutra- Phos Type 2 diabetes mellitus on insulin therapy. Hypertension with hypotension during dialysis. History of VRE urinary tract infection/acute cystitis, s/p treatment with Zyvox Coronary artery disease, status post CABG back in August. No current chest symptoms associated with her anemia. - Time Spent with Patient Total time spent providing and/or coordinating discharge services: Greater than 30 minutes Medical - DS: Exam - Constitutional Vitals: Vital Signs Temp Pulse Resp BP BP BP Pulse Ox 04/18/18 12:00 98.2 F 140/92 100 04/18/18 11:59 96 04/18/18 11:00 98.7 F 20 128/89 100 04/18/18 10:01 138/89 100 04/18/18 08:00 16 155/97 91 04/18/18 07:30 16 138/89 97 04/18/18 07:00 98.4 F 20 101/77 94 04/18/18 04:01 98.5 F 17 166/109 99 04/18/18 02:20 98.4 F 16 154/95 98 04/18/18 01:00 98.4 F 16 147/98 98 04/18/18 00:00 98.5 F 16 120/87 120/87 98 04/17/18 23:25 98.4 F 16 129/86 97 04/17/18 23:15 98.3 F 16 147/87 92 04/17/18 22:55 98.8 F 18 132/79 95 04/17/18 22:00 98.4 F 18 122/87 98 04/17/18 21:40 98.4 F 18 122/70 98 04/17/18 21:30 98.8 F 18 111/67 96 04/17/18 21:02 98.0 F 85 21 116/93 100 04/17/18 21:00 98.8 F 18 104/61 96 04/17/18 20:44 98.8 F 18 104/61 96 04/17/18 20:30 21 116/93 04/17/18 20:16 85 21 119/86 100 04/17/18 20:01 82 24 H 127/89 99 04/17/18 19:49 16 106/77 04/17/18 19:47 84 17 88/29 93 04/17/18 19:41 82 16 96 04/17/18 19:36 84 15 120/89 98 04/17/18 18:45 85 16 119/87 95 04/17/18 18:30 89 17 98/52 99 04/17/18 18:15 85 19 115/73 94 04/17/18 18:00 83 20 114/70 99 04/17/18 17:45 83 15 135/75 100 04/17/18 16:45 80 18 109/76 96 04/17/18 16:31 77 18 120/98 100 04/17/18 16:30 80 18 119/90 98 04/17/18 16:15 77 15 123/88 96 04/17/18 15:45 77 15 101/62 98 04/17/18 15:30 78 18 120/79 99 04/17/18 15:13 98.0 F 81 16 135/89 98 Intake and Output 04/17/18 04/18/18 04/18/18 21:59 05:59 13:59 Intake Total 286 / 286 358 / 358 Output Total 76 / 76 151 / 151 Balance 286 / 286 282 / 282 -151 / -151 Intake: Blood Product 286 / 286 358 / 358 Output: Void Amount 75 / 75 # of times incontinent of urine Urine/Stool Mix 150 / 150 Other: Stool Size Moderate Small Stool Color Brown Brown Rory Colored Stool Consistency Soft Soft Loose # Bowel Movements 1 # of times incontinent of 1 1 Bowels Weight 134 lb 14.4 oz Additional comments: General: In bed in no acute distress Chest: Clear, unlabored Cardio vascular: Regular Abdomen: Soft, nontender Musculoskeletal: Right AKA Neuro: Alert, oriented, some generalized weakness. Medical - DS: Data Procedures and tests throughout hospitalization: Transfusion of 2 units packed red cells, 1 unit "least incompatible", which was tolerated well Labs on day of discharge: Labs from last 24 hours 04/18/18 04/18/18 04/18/18 05:06 04:10 04:10 WBC 12.9 H RBC 3.74 L Hgb 10.3 L Hct 31.2 L POC Hct MCV 83.2 MCH 27.5 MCHC 33.0 RDW 15.9 H Plt Count 240 MPV 8.6 Gran % 59.3 Lymph % (Auto) 21.3 [place] % (Auto) 15.3 H Eos % (Auto) 3.5 Baso % (Auto) 0.6 Gran # 7.7 Lymph # (Auto) 2.7 [place] # (Auto) 2.0 H Eos # (Auto) 0.5 Baso # (Auto) 0.1 PT INR POC Sodium Sodium 134 POC Potassium Potassium 3.8 POC Chloride Chloride 96 Carbon Dioxide 27 POC Total CO2 Anion Gap 11.0 POC BUN BUN 4 L Creatinine 1.6 H POC Creatinine GFR Calculation 39 Glucose 90 POC Glucose Uric Acid 2.1 L Calcium 9.0 POC WB Ioniz Calcium Phosphorus 1.0 L Magnesium 1.6 Iron 127 TIBC 227 L Unsat Iron Binding 100 L Transferrin % Sat 55 H Ferritin 838.2 H Total Bilirubin 0.9 Direct Bilirubin < 0.2 GGT 96 H AST 12 ALT 7 Alkaline Phosphatase 335 H Lactate Dehydrogenase 245 Total Protein 6.0 Albumin 2.8 L Globulin 3.2 Albumin/Globulin Ratio 0.9 L Triglycerides 88 Procalcitonin 04/18/18 04/17/18 04/17/18 04:10 15:45 15:21 WBC RBC Hgb Hct POC Hct MCV MCH MCHC RDW Plt Count MPV Gran % Lymph % (Auto) [place] % (Auto) Eos % (Auto) Baso % (Auto) Gran # Lymph # (Auto) [place] # (Auto) Eos # (Auto) Baso # (Auto) PT 12.9 12.6 INR 1.0 0.9 POC Sodium Sodium POC Potassium Potassium POC Chloride Chloride Carbon Dioxide POC Total CO2 Anion Gap POC BUN BUN Creatinine POC Creatinine GFR Calculation Glucose POC Glucose Uric Acid Calcium POC WB Ioniz Calcium Phosphorus Magnesium Iron TIBC Unsat Iron Binding Transferrin % Sat Ferritin Total Bilirubin Direct Bilirubin GGT AST ALT Alkaline Phosphatase Lactate Dehydrogenase Total Protein Albumin Globulin Albumin/Globulin Ratio Triglycerides Procalcitonin 0.39 04/17/18 04/17/18 15:21 15:20 WBC 14.1 H RBC 2.69 L Hgb 7.0 L* Hct 21.8 L POC Hct 23.0 L MCV 81.1 MCH 25.9 L MCHC 32.0 RDW 16.1 H Plt Count 275 MPV 7.9 Gran % 54.0 Lymph % (Auto) 27.7 [place] % (Auto) 12.9 H Eos % (Auto) 4.8 Baso % (Auto) 0.6 Gran # 7.6 Lymph # (Auto) 3.9 [place] # (Auto) 1.8 H Eos # (Auto) 0.7 Baso # (Auto) 0.1 PT INR POC Sodium 135 Sodium 132 L POC Potassium 3.2 L Potassium 3.3 POC Chloride 91 L Chloride 93 L Carbon Dioxide 30 POC Total CO2 29 Anion Gap 9.0 POC BUN < 3 L BUN 3 L Creatinine 1.0 POC Creatinine 1.1 GFR Calculation 69 Glucose 127 H POC Glucose 126 H Uric Acid Calcium 8.4 L POC WB Ioniz Calcium 1.05 L Phosphorus Magnesium 1.6 Iron TIBC Unsat Iron Binding Transferrin % Sat Ferritin Total Bilirubin 0.3 Direct Bilirubin GGT AST 9 ALT 7 Alkaline Phosphatase 361 H Lactate Dehydrogenase Total Protein 6.3 Albumin 3.1 L Globulin 3.2 Albumin/Globulin Ratio 1.0 Triglycerides Procalcitonin Medical - DS: A/P - Patient/Caregiver Discharge Instructions Activity: as per physical therapy, increase activity as tolerated Diet: Renal/Consistent Carbs - Follow up Plan Follow up with: Deann Anton MD [Physician] - (During TTS dialysis) Noel Mckeon MD [Physician] - Disposition: Xfer SNF Prognosis: Fair Rehab Potential: Fair I certify that the patient requires SNF services: Yes Overall status at discharge: patient is progressing back to baseline Medical - DS: Qual - VTE Deep Vein Thrombosis/Pulmonary Embolism Present on Admission: No
== END 2018-04-18 15:00 ==
LOC: ED 15:12 → ICU 15:12
PROVIDERS: ADMIT Internal Medicine; ATTEND Internal Medicine
CPT/HCPCS: G0378